=== PATIENT | female | born 1960 | race Caucasian/White ===

== ENCOUNTER 2018-07-04 13:57 | Inpatient (IN) | payer OTHER, SELFPAY ==
[2018-07-04] VITALS (12 sets, daily range): BP systolic 55–96; BP diastolic 37–65; PULSE 20–98; RESP 12–94; TEMP 36.6–36.8; O2SAT 94–97; BMI 20.1; BMI 20.2
--- NOTE | 2018-07-04 14:47 | RAD_ITS ---
STUDY: X-RAY CHEST REASON FOR EXAM: Female, 58 years old. Shortness of breath. Dizziness and weakness. TECHNIQUE: Single AP portable view of the chest. COMPARISON: Comparison is made with prior study dated September 28, 2018. FINDINGS: EKG electrodes are seen. Blunting of the left costophrenic angle with underlying atelectasis. I suspect an early right upper lobe infiltrate. There is no demonstrated pleural abnormality. Normal size heart. Normal mediastinum and sherri. Normal visualized pulmonary arteries. Normal visualized aortic arch and descending thoracic aorta. Normal visualized thoracic spine. Normal visualized ribs, clavicles, and shoulders. There is no demonstrated abnormality of the visualized soft tissue structures of the upper abdomen. RAD/Chest 1 View (Portable) IMPRESSION: Findings suggestive of an early right upper lobe infiltrate. Blunting of the left costophrenic angle with a left basilar atelectasis and/or infiltrate. Electronically Signed: Rickie Ybarra MD at 15:36 EDT Tel [phone], Service support ,
--- NOTE | 2018-07-04 14:47 | EKG12_ITS ---
Test Reason : SOB Blood Pressure : / mmHG Vent. Rate : 090 BPM Atrial Rate : 090 BPM P-R Int : 120 ms QRS Dur : 090 ms QT Int : 356 ms P-R-T Axes : 043 019 033 degrees QTc Int : 435 ms Normal sinus rhythm Normal ECG Confirmed by BI ALFARO, LOC ([id number]), commissioning editor ANTOLIN INFANTE ([id number] on 07/10/2018 3:40:42 PM Referred By: Cruz Snider Confirmed By:LOC APT MD
[2018-07-04] MEDS: 0.9% Normal Saline 1,000 ML 1000 ML IV ×2 (15:06→15:07)
[2018-07-04 15:28] LABS: Absolute Lymphocyte Count 0.59 X10^3/ul (0.83-4.51); Absolute Neutrophil Count 16.3 X10^3/uL (2.0-7.7); Basophil# 0.01 X10^3/uL; Basophil% 0.1 % (0-1); Differential Indicated SCAN CRITERIA MET; Hematocrit 30.9 % (37-47); Hemoglobin 9.8 g/dl (12.0-15.0); Lymphocyte # 0.59 X10^3/ul (4.0); Lymphocyte % 3.2 % (19-41); Mean Corp Hgb Conc 31.7 g/gl (32-36); Mean Corpuscular Hgb 28.8 pg (27.0-32.0); Mean Corpuscular Volume 90.9 fL (81-99); Mean Platelet Vol. 9.6 fl (6.2-12.0); Monocyte# 1.41 X10^3/uL; Monocyte% 7.7 % (0-10); Neutrophil % 88.8 % (47-70); POSITIVE COUNT NO; POSITIVE DIFFERENTIAL YES; POSITIVE MORPHOLOGY NO; Platelet Count 256 K/mm3 (150-450); RBC Distribution Width CV 13.4 % (11.6-14.6); RBC Distribution Width SD 44.1 fl (35.1-43.9); White Blood Count 18.3 K/mm3 (4.4-11.0)
[2018-07-04 15:33] LABS: ALB/GLOB Ratio 0.5 RATIO (0.9-2.4); AST(SGOT) 18 U/L (15-37); Alanine Aminotransfer ALT/SGPT 21 U/L (13-56); Albumin, Serum 2.6 g/dL (3.2-5.0); Alkaline Phosphatase 120 U/L (45-117); Anion Gap 12 (5-15); BUN 49 mg/dL (7-18); BUN/Creat Ratio 12.3 RATIO (10-20); Calcium,Total 9.2 mg/dL (8.5-10.1); Chloride 90 mmol/L (98-107); Creatinine, Serum 3.98 mg/dL (0.55-1.02); EST Glomerular Filtration Rate 12 mL/min (>60); Est Glom Filt Rate - Afr Amer 15 mL/min (>60); Estimated Creatinine Clearance 13.05 ml/min; Globulin 5.4 g/dL (2.2-4.2); Glucose 126 mg/dL (74-106); Potassium 3.6 mmol/L (3.5-5.1); Sodium Level 127 mmol/L (136-145)
[2018-07-04 15:49] LABS: Differential Comment S
[2018-07-04 15:57] LABS: Lactic Acid 1.3 mmol/L (0.4-2.0)
--- NOTE | 2018-07-04 16:19 | ED.VISSUMM ---
- ER Visit Summary Date of Service: 07/04/18 Chief Complaint: [Dizziness] History of Present Illness: The patient is a 58 F [presents to the emergency department with 4-5 days history of feeling dizzy. Patient states dizziness worse with standing. Patient has had some fatigue and sleeping more. Patient states that 3 days ago she slept all day. Patient at times has had some shortness of breath with exertion but no real cough. Patient is not had any fevers. Patient states that several years ago she was admitted and had sepsis and spent time in the ICU and she believes it was from a urinary infection. Patient has a history of hypertension and fibromyalgia. Physical Examination: [HEENT-PERRLA, EOMI. Cranial nerves II through XII grossly intact. TMs clear. Mucous membranes moist. No adenopathy. Cardiovascular-regular rate and rhythm without murmur or ectopy Lungs-clear to auscultation, chest wall stable without crepitus or subcu emphysema Abdomen-normoactive bowel sounds, soft, nontender, no rebound or rigidity, no peritoneal signs. Extremities-intact ?4, normal range of motion, normal pulses, atraumatic] Test Results: [EKG obtained arrival shows sinus rhythm with ventricular rate of 90 bpm with no acute I segment changes. CBC with differential showed a white count of 18.3, hemoglobin 9.8, hematocrit 32, platelets 256. Chemistry showed a sodium 127, potassium 3.6, chloride 90, CO2 25, glucose 126, BUN 49 and creatinine was 3.98. LFTs unremarkable. Hemoccult was negative. Lactate was 1.3. Chest x-ray showed questionable right upper lobe infiltrate.] Urinalysis pending. Emergency Department Course and Treatment: [Had blood cultures ordered and was given 2 L normal same fluid bolus and I will write her for 1/3 L. Patient had her fentanyl patch removed. Patient was started on Zosyn empirically.] Only catheter was placed to monitor urine output. Treatment Plan: [Admit] Disposition: [Admit] Impression: [Acute renal failure Hypotension Sepsis Leukocytosis] This note was generated with [employer] dictation software. It may contain incorrect words, spelling, and punctuation that were not noted in review of the chart prior to signing ED Disposition - Plan for ED Patient: Chief Complaint: General Illness Referrals: Ben Bowie [Primary Care Provider] -
--- NOTE | 2018-07-04 16:22 | ED.DCSUM_ITS ---
- ER Visit Summary Date of Service: 07/04/18 Chief Complaint: [Dizziness] History of Present Illness: The patient is a 58 F [presents to the emergency department with 4-5 days history of feeling dizzy. Patient states dizziness worse with standing. Patient has had some fatigue and sleeping more. Patient s tates that 3 days ago she slept all day. Patient at times has had some shortness of breath with exertion but no real cough. Patient is not had any fevers. Patient states that several years ago she was admitted and had sepsis and spent time in the ICU and she believes it was from a urinary infection. Patient has a history of hypertension and fibromyalgia. Physical Examination: [HEENT-PERRLA, EOMI. Cranial nerves II through XII grossly intact. TMs clear. Mucous membranes moist. No adenopathy. Cardiovascular-regular rate and rhythm without murmur or ectopy Lungs-clear to auscultation, chest wall stable without crepitus or subcu emphysema Abdomen-normoactive bowel sounds, soft, nontender, no rebound or rigidity, no peritoneal signs. Extremities-intact ?4, normal range of motion, normal pulses, atraumatic] Test Results: [EKG obtained arrival shows sinus rhythm with ventricular rate of 90 bpm with no acute I segment changes. CBC with differential showed a white count of 18.3, hemoglobin 9.8, hematocrit 32, platelets 256. Chemistry showed a sodium 127, potassium 3.6, chloride 90, CO2 25, glucose 126, BUN 49 and creatinine was 3.98. LFTs unremarkable. Hemoccult was negative. Lactate was 1.3. Chest x-ray showed questionable right upper lobe infiltrate.] Urinalysis pending. Emergency Department Course and Treatment: [Had blood cultures ordered and was given 2 L normal same fluid bolus and I will write her for 1/3 L. Patient had her fentanyl patch removed. Patient was started on Zosyn empirically.] Only catheter was placed to monitor urine output. Treatment Plan: [Admit] Disposition: [Admit] Impression: [Acute renal failure Hypotension Sepsis Leukocytosis] This note was generated with [employer] dictation software. It may contain incorrect words, spelling, and punctuation that were not noted in review of the chart prior to signing ED Disposition - Plan for ED Patient: Chief Complaint: General Illness Referrals: Ben Bowie [Primary Care Provider] -
[2018-07-04] MEDS: 0.9% Normal Saline 1,000 ML 999 ML IV ×2 (16:24→17:22)
[2018-07-04 16:30] LABS: Mucous, Urine 0 SEEN /hpf (<or=2+)
[2018-07-04 16:47] LABS: Color, Urine Amber (Yellow); Glucose, Dipstick Normal (Normal); Ketone-Dipstick 5 mg/dl (Negative); Leukocyte Esterase-Dipstick 500 /ul (Negative); Nitrite-Dipstick Positive (Negative); Occult Blood-Urine 25 /ul (Negative); Protein-Dipstick 100 mg/dl (Negative); Specific Gravity, Urine 1.015 (1.002-1.030); Urine Clarity Cloudy (Clear); Urine Urobilinogen 4 mg/dl (Normal)
[2018-07-04 16:50] LABS: Urine Bilirubin Dipstick 3 mg/dL (Negative)
[2018-07-04 16:54] LABS: Amorphous Sediment 2+ URATE; Bacteria 1+ /hpf (None Seen); Fine Granular Cast- Urine 0-5 SEEN /lpf (0-5); Red Blood Cells-Urine 0-5 SEEN /hpf (0-5); Squamous Epithelial Cells - UA 0-5 SEEN /hpf (5-10); White Blood Cells 50-100 SEEN /hpf (0-5)
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
--- NOTE | 2018-07-04 17:23 | ED.RN ---
pt bp remains low. dr giron aware. 4 th liter of fluid initiated
[2018-07-04] MEDS: 0.9% Normal Saline 1,000 ML 150 ML IV (18:27)
[2018-07-04] MEDS: Heparin Injection (Vial) 5,000 UNIT/ML VIAL 5000 UNIT SC (22:04)
[2018-07-04] MEDS: Ceftriaxone 1 GM/50 ML BAG IV (22:09)
[2018-07-04] MEDS: HYDROcodone Bitartrate/Apap 5/325 Tablet PO (23:09)
[2018-07-05] VITALS (15 sets, daily range): BP systolic 88–135; BP diastolic 63–78; PULSE 82–126; RESP 16–20; TEMP 36.6–37.2; O2SAT 92–98
[2018-07-05] MEDS: fentaNYL 25 MCG Patch TRANSDERM. (01:23)
[2018-07-05] MEDS: 0.9% Normal Saline 1,000 ML 150 ML IV ×2 (01:25→08:25)
[2018-07-05] MEDS: Morphine 2 MG/ML Syringe IV (04:11)
[2018-07-05] MEDS: 0.9% NaCl Peripheral Flush Adult/Peds IV (04:12)
[2018-07-05] MEDS: Heparin Injection (Vial) 5,000 UNIT/ML VIAL 5000 UNIT SC ×3 (05:39→22:37)
[2018-07-05] MEDS: HYDROcodone Bitartrate/Apap 5/325 Tablet PO (05:39)
[2018-07-05 06:37] LABS: Absolute Lymphocyte Count 0.54 X10^3/ul (0.83-4.51); Absolute Neutrophil Count 9.6 X10^3/uL (2.0-7.7); Hematocrit 24.5 % (37-47); Hemoglobin 7.7 g/dl (12.0-15.0); Lymphocyte # 0.54 X10^3/ul (4.0); Lymphocyte % 4.8 % (19-41); Mean Corp Hgb Conc 31.4 g/gl (32-36); Mean Corpuscular Hgb 29.2 pg (27.0-32.0); Mean Corpuscular Volume 92.8 fL (81-99); Mean Platelet Vol. 9.7 fl (6.2-12.0); Monocyte# 0.96 X10^3/uL; Monocyte% 8.6 % (0-10); Neutrophil # 9.57 X10^3/uL (2.7-7.7); Neutrophil % 85.5 % (47-70); Platelet Count 208 K/mm3 (150-450); RBC Distribution Width CV 13.3 % (11.6-14.6); RBC Distribution Width SD 43.4 fl (35.1-43.9); Red Blood Count 2.64 M/mm3 (4.2-5.4); White Blood Count 11.2 K/mm3 (4.4-11.0)
[2018-07-05 06:38] LABS: Differential Indicated SCAN CRITERIA MET; POSITIVE COUNT NO; POSITIVE DIFFERENTIAL YES; POSITIVE MORPHOLOGY NO
[2018-07-05 06:52] LABS: Anion Gap 12 (5-15); BUN 39 mg/dL (7-18); BUN/Creat Ratio 18.1 RATIO (10-20); Calcium,Total 7.1 mg/dL (8.5-10.1); Chloride 107 mmol/L (98-107); Creatinine, Serum 2.16 mg/dL (0.55-1.02); EST Glomerular Filtration Rate 25 mL/min (>60); Est Glom Filt Rate - Afr Amer 30 mL/min (>60); Estimated Creatinine Clearance 25.62 ml/min; Glucose 142 mg/dL (74-106); Potassium 3.3 mmol/L (3.5-5.1); Sodium Level 138 mmol/L (136-145)
[2018-07-05 06:57] LABS: Differential Comment SCANNED
--- NOTE | 2018-07-05 14:07 | CASEMGMT ---
Addendum entered by Catherine Ramírez 07/05/18 15:36: This RN CM back to room and door is pull closed at this time and this RN CM unable to complete CM assessment at this time. This RN CM will attempt to see pt 10/4 am. Cedrick RAMON CM Original Note: This RN CM to room to complete CM assessment at this time and pt is sleeping at this time with sig other at bedside. Will attempt again later. Cedrick RAMON CM
--- NOTE | 2018-07-05 15:41 | CHAPLAIN ---
Type of Pastoral Visit _x__ Initial Visit ___ Follow-up Visit ___ On-call Visit ___ General Patient Visit ___ Spiritual Assessment ___ Family Conference ___ Bereavement ___ Rapid Response ___ Code Blue ___ Other (describe below) Pastoral Care Referral From _x__ Patient ___ Family ___ Nurse ___ Physician ___ Harvest Worker Fruit ___ Fire Captain Marine ___ Other (describe below) Sacrament/Intervention _x__ Active listening ___ Anointing ___ Presybeterian ___ Bereavement ___ Communion ___ Drea exploration ___ ___ Life review _x__ Prayer ___ Reconciliation ___ Sacrament of Sick ___ Supportive presence ___ Wedding ___ Other (describe below) Pastoral Comments patient and presumed spouse are in room; pt is resting but is willing to talk; pt says that she will probably be in hospital a couple of days to find out what is happening; pt is vague in her responses but says prayer is welcome; pt indicates that prayer is needed for relational issues; pt says she does not belong to any drea group or samaritan
[2018-07-05] MEDS: Acetaminophen 325 MG Tablet 650 MG PO (17:18)
[2018-07-05] MEDS: Morphine 2 MG/ML Syringe 1 MG IV (17:23)
--- NOTE | 2018-07-05 18:02 | PCM.PN.HOSP ---
Patient Problems: Active and Suspected Problems (Last Reviewed 07/04/18 @ 17:00 by Cruz Snider DO) SU (acute kidney injury) (Acute) UTI (urinary tract infection) (Acute) Sepsis (Acute) Hypotension (Acute) Subjective: Patient was seen and examined. Admitted overnight with severe sepsis/septic shock secondary to UTI. Denies any fever or chills. Admits to feeling tired. Denies any chest pain or shortness of breath Vitals/I&O's: Vital Signs Temp Pulse Resp BP Pulse Ox 98.9 F 95 18 116/63 97 07/05/18 17:17 07/05/18 17:17 07/05/18 17:17 07/05/18 17:17 07/05/18 17:17 Oxygen Delivery Method Room Air Weight: 58.6 kg Body Mass Index (BMI) 20.2 Intake and Output for Last 24 Hours 07/03/18 07/04/18 07/05/18 23:59 23:59 23:59 Intake Total 3241 / 3241 4673 / 4673 Output Total 125 / 125 2200 / 2200 Balance 3116 / 3116 2473 / 2473 General: Alert, Oriented x3, Cooperative, No apparent distress, - - Looks tired HEENT: Atraumatic, PERRLA, EOMI, Normocephalic Oral: Dry Mucosa Neck: Supple, No JVD, Negative Carotid Bruits Lungs: Clear to auscultation, Normal air movement, Diminished Cardiovascular: Regular rate, No murmurs Abdomen: Bowel Sounds Present, Soft, Non Tender, Non-Distended, No Hepato-splenomegaly - The lung bases, - - Juárez catheter in situ Extremities: No edema Skin: No rashes, No breakdown Musculoskeletal: No Tenderness to Palpation of Joints or Extremities Lymphatic: No Cervical, Supraclavicular, or Inguinal Adenopathy Neurological: Cranial nerves II-XII grossly intact, Neuro grossly intact, Motor Exam 5/5 strength throughout Psych/Mental Status: Normal Affect, Appropriate Microbiology Past 72 Hours 07/04/18 15:00 Stool Stool Occult Blood (SADIE) - Final Laboratory Results 07/05/18 06:10: WBC 11.2 H, RBC 2.64 L, Hgb 7.7 L, Hct 24.5 L, MCV 92.8, MCH 29.2, MCHC 31.4 L, RDW 13.3, RDW Differential 43.4, Plt Count 208, MPV 9.7, Immature Gran % (Auto) 1.100 H, Neut % (Auto) 85.5 H, Lymph % (Auto) 4.8 L, [place] % (Auto) 8.6, Eos % (Auto) 0.0, Baso % (Auto) 0.0, Absolute Neuts (auto) 9.6 H, Absolute Lymphs (auto) 0.54 L, Total Counted Not Reportable, Differential Comment SCANNED 07/05/18 06:10: Sodium 138, Potassium 3.3 L, Chloride 107, Carbon Dioxide 19.0 L, Anion Gap 12, BUN 39 H, Creatinine 2.16 H, Estim Creat Clear Calc 25.62, Est GFR (MDRD) Af Amer 30 L, Est GFR (MDRD) Non-Af 25 L, BUN/Creatinine Ratio 18.1, Glucose 142 H, Calcium 7.1 L Current Medications Acetaminophen (Tylenol) 650 mg PO Q6H PRN PRN Reason: PAIN Last Admin: 07/05/18 17:18 Dose: 650 mg Fentanyl (Duragesic Patch) 25 mcg TRANSDERM. Q72H [facility] Last Admin: 07/05/18 01:23 Dose: 25 mcg Heparin Sodium (Porcine) (Heparin Na) 5,000 unit SC Q8 [facility] Last Admin: 07/05/18 13:13 Dose: 5,000 unit Ceftriaxone Sodium (Rocephin) 1 gm in 50 mls @ 100 mls/hr IV Q24H [facility] Last Admin: 07/04/18 22:09 Dose: 100 mls/hr Sodium Chloride () 1,000 mls @ 75 mls/hr IV .[id number] [facility] Last Admin: 07/05/18 12:00 Dose: Not Given Magnesium Hydroxide (Milk Of Magnesia) 30 ml PO DAILY PRN PRN PRN Reason: Constipation Morphine Sulfate () 1 mg IV Q4H PRN PRN PRN Reason: MOD-SEVERE PAIN (4-10) Last Admin: 07/05/18 17:23 Dose: 1 mg Nutritional Formula (Lactose Free) (Ensure Enlive) 120 ml PO 4X/DAY [facility] Last Admin: 07/05/18 17:25 Dose: Not Given Ondansetron HCl (Zofran) 4 mg IV Q8H PRN PRN PRN Reason: NAUSEA Oxycodone HCl (Oxyir) 5 mg PO Q6H PRN PRN PRN Reason: SEVERE PAIN (6-07/12) Sodium Chloride () 5 - 30 ml IV UD PRN PRN Reason: SALINE FLUSH Last Admin: 07/05/18 04:12 Dose: 20 ml Medical Necessity - Tobacco Use Smoking Status: Former smoker Tobacco Use: Cigarettes Assessment/Plan All Active Problems (Last Reviewed 07/04/18 @ 17:00 by Cruz Snider DO) SU (acute kidney injury) (Acute) UTI (urinary tract infection) (Acute) Sepsis (Acute) Hypotension (Acute) Depressed (Acute) Dysuria (Acute) Impacted cerumen, left ear (Acute) 64-year-old female with past medical history of hypertension, hyperlipidemia, fibromyalgia/chronic pain syndrome who comes in with complaints of feeling weak and unsteady. Patient's blood pressure was found to be in the 50s in the emergency department. She has been actively managed at septic shock secondary to UTI 1. Septic shock secondary to UTI, improved, blood cultures are pending, urine cultures not sent, Patient already managed on IV ceftriaxone, improvement in her white cell count, will continue to trend vitals and labs 2. SU, previous normal renal function, secondary to sepsis, dehydration, continue on IV fluids, repeat labs in a.m. 3. Hyponatremia, acute, secondary to dehydration, resolved 4. Hypokalemia, replaced, labs in a.m. 5. Microcytic microchromic anemia, drop in hemoglobin from 9.8 to 7.7 secondary to hemodilution, will check for iron stores, will transfuse if hemoglobin is less than 7. 6. Hypertension, now relatively hypotensive, was on lisinopril,hydrochlorothiazide, Meds on hold on account of HPI, continue to monitor vitals closely. 7. Chronic pain syndrome/fibromyalgia/anxiety disorder, will leave patient only on fentanyl, oxycodone, Valium on hold on account of hypotension 8. DVT prophylaxis with heparin subcu Code Visit Inpatient E&M: 13121 Subs Hosp L2
--- NOTE | 2018-07-05 18:09 | PN_ITS ---
Patient Problems: Active and Suspected Problems (Last Reviewed 07/04/18 @ 17:00 by Cruz Snider DO) SU (acute kidney injury) (Acute) UTI (urinary tract infection) (Acute) Sepsis (Acute) Hypotension (Acute) Subjective: Patient was seen and examined. Admitted overnight with severe sepsis/septic shock secondary to UTI. Denies any fever or chills. Admits to feeling tired. Denies any chest pain or shortness of breath Vitals/I&O's: Vital Signs Temp Pulse Resp BP Pulse Ox 98.9 F 95 18 116/63 97 07/05/18 17:17 07/05/18 17:17 07/05/18 17:17 07/05/18 17:17 07/05/18 17:17 Oxygen Delivery Method Room Air Weight: 58.6 kg Body Mass Index (BMI) 20.2 Intake and Output for Last 24 Hours 07/03/18 07/04/18 07/05/18 23:59 23:59 23:59 Intake Total 3241 / 3241 4673 / 4673 Output Total 125 / 125 2200 / 2200 Balance 3116 / 3116 2473 / 2473 General: Alert, Oriented x3, Cooperative, No apparent distress, - - Looks tired HEENT: Atraumatic, PERRLA, EOMI, Normocephalic Oral: Dry Mucosa Neck: Supple, No JVD, Negative Carotid Bruits Lungs: Clear to auscultation, Normal air movement, Diminished Cardiovascular: Regular rate, No murmurs Abdomen: Bowel Sounds Present, Soft, Non Tender, Non-Distended, No Hepato- splenomegaly - The lung bases, - - Juárez catheter in situ Extremities: No edema Skin: No rashes, No breakdown Musculoskeletal: No Tenderness to Palpation of Joints or Extremities Lymphatic: No Cervical, Supraclavicular, or Inguinal Adenopathy Neurological: Cranial nerves II-XII grossly intact, Neuro grossly intact, Motor Exam 5/5 strength throughout Psych/Mental Status: Normal Affect, Appropriate Microbiology Past 72 Hours 07/04/18 15:00 Stool Stool Occult Blood (SADIE) - Final Laboratory Results 07/05/18 06:10: WBC 11.2 H, RBC 2.64 L, Hgb 7.7 L, Hct 24.5 L, MCV 92.8, MCH 29.2, MCHC 31.4 L, RDW 13.3, RDW Differential 43.4, Plt Count 208, MPV 9.7, Immature Gran % (Auto) 1.100 H, Neut % (Auto) 85.5 H, Lymph % (Auto) 4.8 L, [place] % (Auto) 8.6, Eos % (Auto) 0.0, Baso % (Auto) 0.0, Absolute Neuts (auto) 9.6 H, Absolute Lymphs (auto) 0.54 L, Total Counted Not Reportable, Differential Comment SCANNED 07/05/18 06:10: Sodium 138, Potassium 3.3 L, Chloride 107, Carbon Dioxide 19.0 L , Anion Gap 12, BUN 39 H, Creatinine 2.16 H, Estim Creat Clear Calc 25.62, Est GFR (MDRD) Af Amer 30 L, Est GFR (MDRD) Non-Af 25 L, BUN/Creatinine Ratio 18.1, Glucose 142 H, Calcium 7.1 L Current Medications Acetaminophen (Tylenol) 650 mg PO Q6H PRN PRN Reason: PAIN Last Admin: 07/05/18 17:18 Dose: 650 mg Fentanyl (Duragesic Patch) 25 mcg TRANSDERM. Q72H [facility] Last Admin: 07/05/18 01:23 Dose: 25 mcg Heparin Sodium (Porcine) (Heparin Na) 5,000 unit SC Q8 [facility] Last Admin: 07/05/18 13:13 Dose: 5,000 unit Ceftriaxone Sodium (Rocephin) 1 gm in 50 mls @ 100 mls/hr IV Q24H [facility] Last Admin: 07/04/18 22:09 Dose: 100 mls/hr Sodium Chloride () 1,000 mls @ 75 mls/hr IV .[id number] [facility] Last Admin: 07/05/18 12:00 Dose: Not Given Magnesium Hydroxide (Milk Of Magnesia) 30 ml PO DAILY PRN PRN PRN Reason: Constipation Morphine Sulfate () 1 mg IV Q4H PRN PRN PRN Reason: MOD-SEVERE PAIN (4-10) Last Admin: 07/05/18 17:23 Dose: 1 mg Nutritional Formula (Lactose Free) (Ensure Enlive) 120 ml PO 4X/DAY [facility] Last Admin: 07/05/18 17:25 Dose: Not Given Ondansetron HCl (Zofran) 4 mg IV Q8H PRN PRN PRN Reason: NAUSEA Oxycodone HCl (Oxyir) 5 mg PO Q6H PRN PRN PRN Reason: SEVERE PAIN (6-07/12) Sodium Chloride () 5 - 30 ml IV UD PRN PRN Reason: SALINE FLUSH Last Admin: 07/05/18 04:12 Dose: 20 ml Medical Necessity - Tobacco Use Smoking Status: Former smoker Tobacco Use: Cigarettes Assessment/Plan All Active Problems (Last Reviewed 07/04/18 @ 17:00 by Cruz Snider DO) SU (acute kidney injury) (Acute) UTI (urinary tract infection) (Acute) Sepsis (Acute) Hypotension (Acute) Depressed (Acute) Dysuria (Acute) Impacted cerumen, left ear (Acute) 64-year-old female with past medical history of hypertension, hyperlipidemia, fibromyalgia/chronic pain syndrome who comes in with complaints of feeling weak and unsteady. Patient's blood pressure was found to be in the [facility]s [facility]. She has been actively managed at septic shock secondary to UTI 1. Septic shock secondary to UTI, improved, blood cultures are pending, urine cultures not sent, Patient already managed on IV ceftriaxone, improvement in her white cell count, will continue to trend vitals and labs 2. SU, previous normal renal function, secondary to sepsis, dehydration, continue on IV fluids, repeat labs in a.m. 3. Hyponatremia, acute, secondary to dehydration, resolved 4. Hypokalemia, replaced, labs in a.m. 5. Microcytic microchromic anemia, drop in hemoglobin from 9.8 to 7.7 secondary to hemodilution, will check for iron stores, will transfuse if hemoglobin is less than 7. 6. Hypertension, now relatively hypotensive, was on lisinopril,hydrochlorothiazide, Meds on hold on account of HPI, continue to monitor vitals closely. 7. Chronic pain syndrome/fibromyalgia/anxiety disorder, will leave patient only on fentanyl, oxycodone, Valium on hold on account of hypotension 8. DVT prophylaxis with heparin subcu Code Visit Inpatient E&M: 52217 Subs Hosp L2
[2018-07-05 18:59] LABS: Ferritin 416 ng/mL (8-252); Iron 18 ug/dL (50-170); Iron Binding Capacity,Total 256 ug/dL (250-450)
[2018-07-05] MEDS: diazePAM 5 MG Tablet PO (19:18)
[2018-07-05] MEDS: 0.9% Normal Saline 1,000 ML 75 ML IV (19:19)
[2018-07-05] MEDS: Ceftriaxone 1 GM/50 ML BAG IV (22:37)
[2018-07-06] VITALS (12 sets, daily range): BP systolic 108–136; BP diastolic 60–79; PULSE 78–102; RESP 16–18; TEMP 36.6–37.2; O2SAT 92–98
[2018-07-06] MEDS: oxyCODONE 5 MG Tablet PO ×4 (00:41→20:13)
[2018-07-06] MEDS: Heparin Injection (Vial) 5,000 UNIT/ML VIAL 5000 UNIT SC ×3 (06:10→21:29)
[2018-07-06 06:13] LABS: Absolute Lymphocyte Count 1.65 X10^3/ul (0.83-4.51); Absolute Neutrophil Count 9.6 X10^3/uL (2.0-7.7); Basophil# 0.01 X10^3/uL; Basophil% 0.1 % (0-1); Eosinophil# 0.02 X10^3/uL; Eosinophils% 0.2 % (0-5); Hematocrit 26.6 % (37-47); Hemoglobin 8.4 g/dl (12.0-15.0); Lymphocyte # 1.65 X10^3/ul (4.0); Lymphocyte % 13.2 % (19-41); Mean Corp Hgb Conc 31.6 g/gl (32-36); Mean Corpuscular Hgb 29.1 pg (27.0-32.0); Mean Platelet Vol. 9.4 fl (6.2-12.0); Monocyte# 1.11 X10^3/uL; Monocyte% 8.9 % (0-10); Neutrophil # 9.63 X10^3/uL (2.7-7.7); Neutrophil % 77.1 % (47-70); Platelet Count 291 K/mm3 (150-450); RBC Distribution Width CV 13.5 % (11.6-14.6); RBC Distribution Width SD 44.3 fl (35.1-43.9); Red Blood Count 2.89 M/mm3 (4.2-5.4); White Blood Count 12.5 K/mm3 (4.4-11.0)
[2018-07-06] MEDS: Acetaminophen 325 MG Tablet 650 MG PO ×2 (06:13→17:46)
[2018-07-06 06:23] LABS: Anion Gap 9 (5-15); BUN 27 mg/dL (7-18); BUN/Creat Ratio 24.1 RATIO (10-20); Calcium,Total 7.9 mg/dL (8.5-10.1); Chloride 109 mmol/L (98-107); Creatinine, Serum 1.12 mg/dL (0.55-1.02); EST Glomerular Filtration Rate 53 mL/min (>60); Est Glom Filt Rate - Afr Amer 64 mL/min (>60); Estimated Creatinine Clearance 49.41 ml/min; Glucose 98 mg/dL (74-106); Potassium 3.7 mmol/L (3.5-5.1); Sodium Level 140 mmol/L (136-145)
[2018-07-06 06:27] LABS: POSITIVE COUNT NO; POSITIVE DIFFERENTIAL NO; POSITIVE MORPHOLOGY NO
--- NOTE | 2018-07-06 11:30 | CASEMGMT ---
YENNY WILCOX Assessment: Face to Face with patient for initial transition planning/care coordination assessment. YENNY WILCOX introduced self and role at [facility], pt voices understanding and consents to assessment at this time. Pt is sitting up on side of bed in no distress at this time and Zoe RAMON is at bedside. Pt is A/O x4 at this time and answers all questions appropriately at this time. Care providers, pharmacy, and demographics verified at this time. 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 Specialists: Kye-Pain management Preferred Pharmacy: [facility] Insurance: MMO Prescription Benefit: MMO Living Will/HPOA: Pt states does not have AD completed but would like information to take home at this time. AD info with Retail Custodial Associate pamphlet provided to pt at this time. LNOK: Martin Weeks, Living Arrangements: Pt states currently lives with and states no concerns with home at this time. Pt states she only has stairs to basement and does not go down there if she can help it. Per Dayana CARSON, pt is planning on . Referral to Miguelito BARRERA to speak with pt, voices understanding. Transportation: Pt states drives self and states no transportation concerns at this time. DME/HHC: Pt states does have any DME currently or need for any at this time. Pt states no hx of HHC/SNF in the past. Pt states no concerns with going home at time of discharge. Pt states quit smoking 40 years ago and states drinks ETOH rarely. Pt states no further concerns/needs at this time. Advised pt to ask for CM if any further questions/concerns/needs arise, voices understanding. Plan: [place] YENNY WILCOX
[2018-07-06] MEDS: Ferrous Sulfate 325 MG Tablet PO ×2 (13:20→17:46)
[2018-07-06] MEDS: 0.9% Normal Saline 1,000 ML 125 ML IV ×2 (13:24→21:29)
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
[2018-07-06] MEDS: Fluticasone 0.05% 1 SPRAY NASAL.SRY 2 SPRAY NASAL (20:14)
[2018-07-06] MEDS: Ceftriaxone 1 GM/50 ML BAG IV (21:29)
[2018-07-06] MEDS: diazePAM 5 MG Tablet PO (21:33)
[2018-07-07] MEDS: oxyCODONE 5 MG Tablet PO ×2 (02:24→08:15)
[2018-07-07] MEDS: 0.9% NaCl Peripheral Flush Adult/Peds IV (02:24)
[2018-07-07 02:31] VITALS: BP 123/70; PULSE 69; RESP 16; TEMP 36.9; O2SAT 94
[2018-07-07 04:08] VITALS: PULSE 75
[2018-07-07] MEDS: Heparin Injection (Vial) 5,000 UNIT/ML VIAL 5000 UNIT SC (05:53)
[2018-07-07] MEDS: 0.9% Normal Saline 1,000 ML 125 ML IV (05:54)
[2018-07-07 06:51] LABS: Absolute Neutrophil Count 7.3 X10^3/uL (2.0-7.7); Basophil# 0.02 X10^3/uL; Basophil% 0.2 % (0-1); Eosinophil# 0.06 X10^3/uL; Eosinophils% 0.5 % (0-5); Hematocrit 27.6 % (37-47); Hemoglobin 8.7 g/dl (12.0-15.0); Lymphocyte % 21.9 % (19-41); Mean Corp Hgb Conc 31.5 g/gl (32-36); Mean Corpuscular Hgb 29.1 pg (27.0-32.0); Mean Corpuscular Volume 92.3 fL (81-99); Mean Platelet Vol. 9.3 fl (6.2-12.0); Monocyte# 1.02 X10^3/uL; Monocyte% 9.3 % (0-10); Neutrophil # 7.33 X10^3/uL (2.7-7.7); Neutrophil % 66.8 % (47-70); Platelet Count 321 K/mm3 (150-450); RBC Distribution Width CV 13.6 % (11.6-14.6); Red Blood Count 2.99 M/mm3 (4.2-5.4)
[2018-07-07 06:52] LABS: POSITIVE COUNT NO; POSITIVE DIFFERENTIAL NO; POSITIVE MORPHOLOGY NO
[2018-07-07 07:01] LABS: Anion Gap 9 (5-15); BUN 18 mg/dL (7-18); BUN/Creat Ratio 22.6 RATIO (10-20); Calcium,Total 7.9 mg/dL (8.5-10.1); Chloride 111 mmol/L (98-107); EST Glomerular Filtration Rate 78 mL/min (>60); Est Glom Filt Rate - Afr Amer 94 mL/min (>60); Estimated Creatinine Clearance 69.18 ml/min; Glucose 98 mg/dL (74-106); Potassium 3.9 mmol/L (3.5-5.1); Sodium Level 141 mmol/L (136-145)
[2018-07-07 07:09] VITALS: PULSE 81
[2018-07-07 08:09] VITALS: BP 125/82; PULSE 79; RESP 18; TEMP 36.4; O2SAT 96
[2018-07-07] MEDS: Acetaminophen 325 MG Tablet 650 MG PO (08:15)
[2018-07-07] MEDS: Fluticasone 0.05% 1 SPRAY NASAL.SRY 2 SPRAY NASAL (08:18)
[2018-07-07 10:42] VITALS: BP 118/71; BP 134/76; BP 147/81; PULSE 87; PULSE 89; PULSE 92
--- NOTE | 2018-07-07 11:12 | DCINST_ITS ---
- Discharge Diagnoses Current Active Problems: Current Active and Chronic Problems (Last Reviewed 07/04/18 @ 17:00 by Cruz Snider DO) SU (acute kidney injury) (Acute) UTI (urinary tract infection) (Acute) Sepsis (Acute) Hypotension (Acute) You will use the following diet at home:: Cardiac - <2 grams sodium daily Your food should be the consistency of: Regular Your liquids should be the consistency of: Regular/Thin Discharge Activity: Return to Normal Activity Allergies/Adverse Reactions: Allergies nefazodone HCl [From Serzone] Allergy (Verified 07/04/18 17:58) suicidal thoughts Medications to take at Discharge fentaNYL patch [Duragesic patch] 25 mcg TRANSDERM. Q72H 05/16/17 hydrocodone 5 mg-acetaminophen 325 mg tablet 1 tab PO 4X/DAY 05/30/18 Dextroamphetamine/Amphetamine [Dextroamp-Amphetamin 20 mg Tab] 20 mg PO BID 07/04/18 Diazepam [Valium] 2.5 - 5 mg PO QHS 07/04/18 Cefdinir [Omnicef [equiv]] 300 mg PO Q12H #7 capsule 07/07/18 Ferrous Sulfate 325 mg PO 1200,1700 #60 tablet 07/07/18 The following prescriptions were given: Cefdinir [Omnicef [equiv]] 300 mg PO Q12H #7 capsule Ferrous Sulfate 325 mg PO 1200,1700 #60 tablet Primary Care Physician: Ben Bwoie [Primary Care Provider] - Please follow up with your Primary Care Physician in: 1-2 weeks Test Results: Test results from this visit will be discussed in further detail at your follow- up appointment, if applicable. Please Follow Up With: Counselling services - Your own When: 1 week Proposed Discharge Date: 07/07/18
[2018-07-07 11:13] VITALS: PULSE 81
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
[2018-07-07] MEDS: Ferrous Sulfate 325 MG Tablet PO (12:45)
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
== END 2018-07-07 13:41 | disposition home or self-care (01) | DRG 872 ==
LOC: ED 15:49 → PCU 16:55
PROVIDERS: Hospitalist; Internal Medicine; Physician Assistant; Emergency Provider Emergency Medicine; Visit Provider Family Medicine
DX: A41.9 Sepsis, unspecified organism (principal); N17.9 Acute kidney failure, unspecified; E87.1 Hypo-osmolality and hyponatremia; N39.0 Urinary tract infection, site not specified; E86.1 Hypovolemia; D50.9 Iron deficiency anemia, unspecified; I10 Essential (primary) hypertension; G89.4 Chronic pain syndrome; E86.0 Dehydration; Z87.891 Personal history of nicotine dependence
CPT/HCPCS: 36415; 51702; 71045; 80048; 80053; 81001; 82274; 82728; 83540; 83550; 83605; 84484; 85025; 87040; 87086; 87088; 93005; 97162; 97165; 97802; 99285; J1756; J7030; J7050; A4216

== ENCOUNTER → 2018-08-30 16:30 | Outpatient (CLI) | payer OTHER, SELFPAY ==
[2018-07-04 17:54] VITALS: BMI 20.2
[2018-08-30 18:12] LABS: Ferritin 142 ng/mL (8-252); Iron 48 ug/dL (50-170); Iron Binding Capacity,Total 312 ug/dL (250-450); PERCENT IRON SATURATION 15.4 % (15.0-55.0)
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
== END ==
DX: D50.9 Iron deficiency anemia, unspecified (principal)
CPT/HCPCS: 36415; 82728; 83540; 83550

== ENCOUNTER → 2019-02-12 15:36 | Outpatient (CLI) | payer OTHER, SELFPAY ==
[2019-02-12 09:04] VITALS: BMI 20.6
[2019-02-12 15:55] LABS: Mucous, Urine 0 SEEN /hpf (<or=2+)
[2019-02-12 16:30] LABS: Color, Urine Yellow (Yellow); Glucose, Dipstick Normal (Normal); Ketone-Dipstick Negative (Negative); Leukocyte Esterase-Dipstick 500 /ul (Negative); Nitrite-Dipstick Positive (Negative); Occult Blood-Urine 10 /ul (Negative); Protein-Dipstick 15 mg/dl (Negative); Specific Gravity, Urine 1.015 (1.002-1.030); Urine Clarity Cloudy (Clear); Urine Urobilinogen 4 mg/dl (Normal)
[2019-02-12 16:34] LABS: Urine Bilirubin Dipstick 3 mg/dL (Negative)
[2019-02-12 16:42] LABS: Bacteria 1+ /hpf (None Seen); Red Blood Cells-Urine 0-5 SEEN /hpf (0-5); Squamous Epithelial Cells - UA 10-25 SEEN /hpf (5-10); White Blood Cells 50-100 SEEN /hpf (0-5)
== END ==
PROVIDERS: Referring Provider Physician Assistant; Visit Provider Physician Assistant
DX: R30.0 Dysuria (principal)
CPT/HCPCS: 81001; 87086; 87088; 87186

== ENCOUNTER → 2019-04-13 | Outpatient (CLI) | payer OTHER, SELFPAY ==
[2019-02-12 09:04] VITALS: BMI 20.6
[2019-04-13 10:53] LABS: Absolute Lymphocyte Count 3.22 X10^3/ul (0.83-4.51); Absolute Neutrophil Count 3.3 X10^3/uL (2.0-7.7); Basophil# 0.02 X10^3/uL; Basophil% 0.3 % (0-1); Eosinophils% 1.4 % (0-5); Hematocrit 35.4 % (37-47); Hemoglobin 10.7 g/dl (12.0-15.0); Lymphocyte # 3.22 X10^3/ul (4.0); Lymphocyte % 45.7 % (19-41); Mean Corp Hgb Conc 30.2 g/gl (32-36); Mean Corpuscular Hgb 28.8 pg (27.0-32.0); Mean Corpuscular Volume 95.2 fL (81-99); Mean Platelet Vol. 9.3 fl (6.2-12.0); Monocyte# 0.46 X10^3/uL; Monocyte% 6.5 % (0-10); Neutrophil # 3.25 X10^3/uL (2.7-7.7); Neutrophil % 46.1 % (47-70); Platelet Count 415 K/mm3 (150-450); RBC Distribution Width SD 43.3 fl (35.1-43.9); Red Blood Count 3.72 M/mm3 (4.2-5.4); White Blood Count 7.1 K/mm3 (4.4-11.0)
[2019-04-13 10:58] LABS: POSITIVE COUNT NO; POSITIVE DIFFERENTIAL NO; POSITIVE MORPHOLOGY NO
[2019-04-13 11:25] LABS: AST(SGOT) 15 U/L (15-37); Alanine Aminotransfer ALT/SGPT 24 U/L (13-56); Albumin, Serum 3.5 g/dL (3.2-5.0); Alkaline Phosphatase 64 U/L (45-117); Anion Gap 8 (5-15); BUN 17 mg/dL (7-18); Calcium,Total 8.6 mg/dL (8.5-10.1); Chloride 102 mmol/L (98-107); Cholesterol 231 mg/dL (200); Creatinine, Serum 1.06 mg/dL (0.55-1.02); EST Glomerular Filtration Rate 56 mL/min (>60); Est Glom Filt Rate - Afr Amer 68 mL/min (>60); Ferritin 170 ng/mL (8-252); Globulin 3.6 g/dL (2.2-4.2); Glucose 91 mg/dL (74-106); High Density Lipoprotein 58 mg/dL; Protein, Total 7.1 g/dL (6.4-8.2); Sodium Level 140 mmol/L (136-145); T4 Total, Thyroxin 6.7 ug/dL (4.8-13.9); Thyroid Stim Hormone (TSH) 3.26 uIU/mL (0.358-3.74); Triglycerides 167 mg/dL; Very Low Density Lipoprotein 33 mg/dL (5-40)
== END | disposition home or self-care (01) ==
DX: Z00.00 Encounter for general adult medical examination without abnormal findings (principal); I10 Essential (primary) hypertension; D50.9 Iron deficiency anemia, unspecified; R63.5 Abnormal weight gain; Z98.890 Other specified postprocedural states
CPT/HCPCS: 36415; 80053; 80061; 82728; 84436; 84443; 85025

== ENCOUNTER → 2021-02-25 08:23 | Outpatient (CLI) | payer OTHER, SELFPAY ==
[2020-05-03 13:20] VITALS: BMI 20.6
--- NOTE | 2021-02-25 08:28 | BI_ITS ---
MAMMOGRAPHY - BILATERAL SCREENING REASON FOR EXAM: Female, 60 years old. Routine annual screening examination. PERTINENT HISTORY: Non-contributory. Remote left excisional breast biopsy. TECHNIQUE: Digital bilateral breast jolie (3D mammographic acquisition) in the CC and MLO projections. 2-D mediolateral oblique (MLO) and craniocaudad (CC) views of both breasts were obtained. CAD: Full Field Digital Mammography with Computer Added Detection was performed. COMPARISON: Comparison is made with prior study dated 02/14/2017 and 01/28/2014. FINDINGS: Breast Composition: The breasts are heterogeneously dense, which may obscure small masses. There are no dominant masses or suspicious calcifications. Stable benign-appearing left axillary lymph node. No other significant abnormalities are identified. There has been no significant change since the prior study. BI/SCRN MAMM (CAD)W/JOLIE BILAT IMPRESSION: Stable bilateral screening mammogram. Yearly follow-up mammogram recommended. (A) ASSESSMENT CATEGORY: BIRADS Category 2: Benign. A letter regarding these results will be sent to the patient by the facility within 30 days. Approximately 10% of breast cancers are not detected by mammography. A normal mammogram should not delay biopsy of a clinically suspicious abnormality. [id number] Electronically Signed: Rickie Ybarra MD at 9:05 EDT , Service support ,
== END ==
PROVIDERS: Referring Provider Nurse Practitioner Family; Visit Provider Nurse Practitioner Family
DX: Z12.31 Encounter for screening mammogram for malignant neoplasm of breast (principal)
CPT/HCPCS: 77063; 77067

== ENCOUNTER 2021-08-26 19:14 | Emergency (ER) | payer SELFPAY ==
[2021-08-26 19:15] VITALS: BP 143/96; PULSE 109; RESP 16; TEMP 36.2; O2SAT 97; BMI 25.7
--- NOTE | 2021-08-26 19:30 | ED.VIS.LOWEX ---
HPI History of Present Illness Chief Complaint: Lower Extremity Injury Informant: patient Occured/Mechanism Mechanism/Context: Yes blunt trauma Onset/Context/Timing Onset: Days Context: Sudden Onset Timing: Continuous Quality of Pain: Sharp Current Severity: Moderate Maximum Severity: Moderate Narrative Narrative: 61-year-old female states she was standing on a chair 2 days ago on Tuesday chair slipped out from under her while she was trimming tree branches and she fell awkwardly injuring her left posterior knee. Denies any other injuries. Did not hit her head denies any neck pain. No LOC. No chest or abdominal or back pain. Other extremities are unremarkable. Prior similar symptoms: No Recent Illness/Hospitalization: No PFSH PFS Medical History (Updated 08/26/21 @ 20:[address] Santo Esteban MD) Arthritis Fatigue Fibromyalgia Heart disease History Collapsed Lungs HISTORY OF BASIL CELL REMOVAL History of cancer History of fracture of skull HISTORY OF HIP/PELVIS/SUPRA PUBIC INJURY HISTORY OF LUMP REMOVAL FROM THROAT HISTORY OF RIGHT TIB-FIB INJURY HISTORY OF RUPTURE OF BLADDER History of rupture of uterus History of sepsis History of uterine fibroid Hypertension Knee pain UNEXPLAINED BRUISES Home Medications fentanyl 25 mcg TRANSDERM. Q72H 05/16/17 [History Last Taken 06/04/18] hydrocodone-acetaminophen 5-325mg 5mg-325mg 1 tab PO 4X/DAY 05/30/18 [History Last Taken 07/04/18] diazepam 2.5 - 5 mg PO QHS 07/04/18 [History Last Taken 06/28/18] ferrous sulfate 325 mg PO 1200,1700 #60 tab 07/07/18 [Rx Last Taken Unknown] cetirizine 10 mg capsule 10 mg PO DAILY #30 cap 03/28/21 [Rx Last Taken Unknown] hydrochlorothiazide 25 mg tablet 25 mg PO DAILY 03/28/21 [History Last Taken Unknown] lisinopril 10 mg tablet 10 mg PO DAILY 03/28/21 [History Last Taken Unknown] Allergy/AdvReac Type Severity Reaction Status Date / Time nefazodone HCl [From Serzone] Allergy suicidal Verified 08/26/21 19:16 thoughts Family History Other Cancer Hypertension Nephritis Surgical History History of bladder repair surgery History of hysterectomy History of lumpectomy of left breast History of thyroidectomy Social History Smoking Status: Former smoker alcohol intake: current alcohol intake frequency: holidays/special occasions only ROS ROS ED ROS Narrative Denies recent illness. Review of Systems ROS Unobtainable: Denies due to encephalopathy Constitutional Constitutional ED: Denies fever(s) Eyes Eyes: Denies change in vision ENT ENT ED: Denies ear pain Cardiovascular Cardiovascular: Denies chest pain Respiratory/Chest Respiratory/Chest: Denies dyspnea Gastrointestinal Gastrointestinal: Denies abdominal pain Genitourinary Genitourinary ED: Denies dysuria Musculoskeletal Musculoskeletal: Denies myalgias Integumentary Denies rash Neurologic Neurologic: Denies headache(s) Psychiatric Psychiatric: Denies depression Endocrine Endocrinology: Denies polyuria Hematologic/Lymphatic Hematologic/Lymphatic: Denies easy bruising Allergic/Immunologic Allergic/Immunologic ED: Denies urticaria EXAM Physical Exam Narrative Exam Narrative: 6 3 of female no acute distress vital signs stable afebrile. She walked in the room limping on her left leg. HEENT exam unremarkable atraumatic C-spine nontender. Lungs clear to auscultation bilaterally. Heart regular rate and rhythm rate about 100 no murmur. Chest were nontender. Abdomen soft nontender. Pelvic girdle intact. Back and spine nontender. Moving all 4 extremities. Neurovascular intact. Both upper and right lower extremity unremarkable nontender normal range of motion. Left lower extremity she complains of pain in the posterior left knee with mild swelling. She can do flexion-extension of left hip knee ankle and foot. Dorsi plantarflexion intact. The foot ankle upper leg and hip are completely nontender with no deformity. Neurologic exam normal. Const Vital Signs: 08/26/21 19:15 Temperature 97.2 F L Temperature Source Temporal Pulse Rate 109 H Respiratory Rate 16 Blood Pressure 143/96 H Blood Pressure Mean 111 Pulse Ox 97 Oxygen Delivery Method Room Air Positive well nourished and well developed; Negative for obese, cachectic, contractures or unkempt General Appearance ED: well developed and NAD; Negative for unkempt, cachectic or contractures Nutritional Appearance: Negative for cachectic or obese HEENT Reports moist mucous membranes normocephalic and atraumatic; Negative for tenderness Eyes PERRL Neck full ROM and supple Thyroid: Negative for tender Chest Wall inspection of chest normal and palpation of chest normal Resp normal respiratory effort, no retractions and clear to auscultation bilaterally Auscultation: Negative for rales, rhonchi or wheezes Cardio regular rate, regular rhythm, S1 normal heart sound, S2 normal heart sound and no murmurs GI non-tender, non-distended and no masses Inspection: Negative for abdominal distention Auscultation: normoactive bowel sounds Palpation: soft; Negative for tender, guarding or rebound tenderness present Back/Spine no CVA tenderness General Back: Negative for CVA tenderness Cervical Spine: Negative for cervical spine tenderness Thoracic Spine / Upper Back: Negative for thoracic spinal tenderness Lumbar Spine / Lower Back: Negative for lumbar spinal tenderness Extremity normal to inspection and full ROM Extremity Narrative: Tenderness left posterior knee. She is able to do flexion extension. Left hip and proximal femur as well as the left lower leg ankle and foot are nontender neurovascularly intact with normal range of motion. General Extremety ED: Negative for cyanosis or edema General Extremity: Negative for cyanosis or edema Neuro oriented x3 and moves all extremities Sensorium / Orientation: alert, oriented to person, oriented to place and oriented to time; Negative for orientation impaired, confused, lethargic or stuporous Motor Exam: strength 5/5 throughout Psych mental status grossly normal Appearance: Negative for unkempt Mood & Affect: Negative for anxious Skin no wounds Lesions: no lesions Rashes: no rashes Trauma: Negative for abrasion or laceration MDM MDM MDM Narrative Medical decision making narrative: 61-year-old female with an injury to her left posterior knee 2 days ago after falling from a chair. X-rays are being obtained. She was given 2 [place] for pain. Repeat exam patient is doing well at 8:45 PM. She is able to flex and extend her left knee. We went over her x-rays. She will be discharged home with crutches. Ice and elevate. Tylenol Motrin for pain. Follow-up with orthopedics if not improving. Radiography Diagnostic Testing: Left knee x-ray 4 views interpreted by myself shows no acute abnormality. No fracture or dislocation. I did go over the film with the patient and her . Discharge Plan Triage Chief Complaint: Lower Extremity Injury ED Provider: Santo Esteban Dx/Rx/DC Orders Clinical Impression: Left knee sprain Instructions: ED Knee Sprain Prescriptions: No Action hydrocodone-acetaminophen [[place]] 5-325 mg tablet 1 tab PO 4X/DAY RF: 0 lisinopril 10 mg tablet 10 mg PO DAILY RF: 0 hydrochlorothiazide 25 mg tablet 25 mg PO DAILY RF: 0 Zyrtec 10 mg capsule 10 mg PO DAILY Qty: 30 RF: 0 fentanyl 25 MCG patch 25 mcg TRANSDERM. Q72H RF: 0 diazepam 5 MG tablet 2.5 - 5 mg PO QHS RF: 0 ferrous sulfate 325 MG tablet 325 mg PO 1200,1700 Qty: 60 RF: 0 Primary Care Provider: Gianluca Nunez Referrals: Gianluca Nunez MD [Primary Care Provider] - Dameon Calhoun DO [STAFF PHYSICIAN] - 10-14 Days if not better Activity Restrictions/Additional Instructions: Ice and elevate your left knee to decrease pain and swelling. Motrin for pain and swelling. Tylenol for pain. Crutches initially and then increase weightbearing slowly as tolerated. Follow-up with a local orthopedic physician if this is not improving in 1 to 2 weeks. Disposition Disposition: Home, Self Care
[2021-08-26] MEDS: HYDROcodone Bitartrate/Apap 5/325 Tablet PO (19:34)
--- NOTE | 2021-08-26 19:40 | RAD_ITS ---
STUDY: X-RAY - LEFT KNEE REASON FOR EXAM: Female, 61 years old. trauma TECHNIQUE: 3 view(s) of the knee. COMPARISON: None. FINDINGS: Normal visualized distal femur. Normal visualized proximal tibia and fibula. Normal proximal tibiofibular articulation. Normal medial femorotibial compartment. Normal lateral femorotibial compartment. Normal patellofemoral articulation. There is a joint effusion. RAD/Knee 4 or More Views IMPRESSION: No fracture. Joint effusion. Electronically Signed: Eliza Naik MD at 20:47 EST Tel , Service support ,
== END 2021-08-26 21:08 | disposition home or self-care (01) ==
PROVIDERS: Emergency Provider Emergency Medicine
DX: S83.92XA Sprain of unspecified site of left knee, initial encounter (principal); M19.90 Unspecified osteoarthritis, unspecified site; M79.7 Fibromyalgia; I11.9 Hypertensive heart disease without heart failure; Z79.899 Other long term (current) drug therapy; Z87.891 Personal history of nicotine dependence; W07.XXXA Fall from chair, initial encounter; Y93.89 Activity, other specified; Y92.007 Garden or yard of unspecified non-institutional (private) residence as the place of occurrence of the external cause; Y99.8 Other external cause status
CPT/HCPCS: 73564; 99284

== ENCOUNTER → 2022-12-31 | Outpatient (CLI) | payer BC, SELFPAY ==
[2022-12-31 10:25] LABS: Bacteria 0 SEEN /hpf (None Seen); Mucous, Urine 0 SEEN /hpf (<or=2+); Red Blood Cells-Urine 0 SEEN /hpf (0-5)
[2022-12-31 10:29] LABS: Glucose, Dipstick Normal (Normal); Ketone-Dipstick Negative (Negative); Leukocyte Esterase-Dipstick Negative /ul (Negative); Nitrite-Dipstick Positive (Negative); Occult Blood-Urine Negative /ul (Negative); Protein-Dipstick 15 mg/dl (Negative); Urine Clarity Clear (Clear); Urine Urobilinogen 8 mg/dl (Normal)
[2022-12-31 10:36] LABS: Color, Urine SEE COMMENT BELOW (Yellow); Urine Bilirubin Dipstick 6 mg/dL (Negative)
[2022-12-31 10:37] LABS: Squamous Epithelial Cells - UA 0-5 SEEN /hpf (5-10); White Blood Cells 5-10 SEEN /hpf (0-5)
== END | disposition home or self-care (01) ==
LOC: LABSPEC 10:12
PROVIDERS: Visit Provider Physician Assistant
DX: R30.0 Dysuria (principal)
CPT/HCPCS: 81001; 87077; 87086; 87088; 87186

== ENCOUNTER → 2023-03-07 | Outpatient (CLI) | payer BC, SELFPAY ==
[2023-03-07 11:19] LABS: ALB/GLOB Ratio 1.1 RATIO (0.9-2.4); AST(SGOT) 22 U/L (15-37); Alanine Aminotransfer ALT/SGPT 25 U/L (13-56); Albumin, Serum 4.1 g/dL (3.2-5.0); Alkaline Phosphatase 73 U/L (45-117); Anion Gap 3 (5-15); BUN 19 mg/dL (7-18); BUN/Creat Ratio 19.8 RATIO (10-20); Calcium,Total 9.1 mg/dL (8.5-10.1); Chloride 110 mmol/L (98-107); Cholesterol 211 mg/dL (200); Creatinine, Serum 0.96 mg/dL (0.55-1.02); EST Glomerular Filtration Rate 62 mL/min (>60); Est Glom Filt Rate - Afr Amer 75 mL/min (>60); Globulin 3.7 g/dL (2.2-4.2); Glucose 106 mg/dL (74-106); High Density Lipoprotein 74 mg/dL; Potassium 3.2 mmol/L (3.5-5.1); Protein, Total 7.8 g/dL (6.4-8.2); Sodium Level 140 mmol/L (136-145); Triglycerides 196 mg/dL; Very Low Density Lipoprotein 39 mg/dL (5-40)
== END | disposition home or self-care (01) ==
LOC: MTLAB 09:43
PROVIDERS: Referring Provider Nurse Practitioner Family; Visit Provider Nurse Practitioner Family
DX: I10 Essential (primary) hypertension (principal); E78.2 Mixed hyperlipidemia
CPT/HCPCS: 36415; 80053; 80061

== ENCOUNTER → 2023-03-25 | Outpatient (CLI) | payer BC, SELFPAY ==
--- NOTE | 2023-03-25 12:29 | STRESSREP ---
Stress Test Report Date: 03/25/2023 Procedure: Pharmacologic stress nuclear imaging study Indications: Dyspnea on exertion Consent: Per the patient Procedure: The patient underwent pharmacologic (Regadenoson 0.4mg ) evaluation with a peak heart rate of 99 beats per minute (63%predicted maximal heart rate) and a peak blood pressure of 160/102 mmHg. The baseline ECG demonstrated normal sinus rhythm. The peak pharmacologic ECG demonstrated no ischemic changes. There were no cardiac dysrhythmias pretest, during pharmacologic infusion, or recovery. There was no complaint of chest discomfort during pharmacologic infusion or recovery. The patient was injected with 15.0 millicuries of technetium 99m Cardiolite and subsequently rest SPECT Cardiolite nuclear imaging was obtained in the horizontal long, vertical long, and short axis views. The patient underwent pharmacologic (Regadenoson) evaluation. The patient was injected with 43.4 millicuries of technetium 99m Cardiolite and subsequently stress SPECT Cardiolite nuclear imaging was obtained in the horizontal long, vertical long, and short axis views. A gated Cardiolite study at peak stress was obtained. The examination was stopped secondary to completion of protocol. Rest and stress SPECT Cardiolite nuclear imaging status post realignment, normalization, and attenuation correction demonstrate no fixed or reversible perfusion defects. There is end systolic thickening and brightening. The gated Cardiolite study demonstrates myocardial thickening and inward wall motion. The reported LVEF is 43%. Impression: 1. Pharmacologic (Regadenoson) evaluation 2. Peak pharmacologic ECG with no ischemic changes. 3. There were no cardiac dysrhythmias pretest, during pharmacologic infusion, or recovery. 5. No fixed or reversible perfusion defects. 6. The gated Cardiolite study reports an LVEF of 43% with mild LV systolic dysfunction %. This note was generated with [employer] Media[employer] software. It may contain incorrect words, spelling, and punctuation that were not noted in checking the note before signing.
== END | disposition home or self-care (01) ==
PROVIDERS: Referring Provider Nurse Practitioner Family; Visit Provider Nurse Practitioner Family
DX: I10 Essential (primary) hypertension (principal); R06.09 Other forms of dyspnea; R61 Generalized hyperhidrosis
CPT/HCPCS: 78452; 93017; A9500; A4216; J2785

== ENCOUNTER → 2023-05-18 | Outpatient (CLI) | payer BC, SELFPAY ==
[2023-05-18 12:00] LABS: Anion Gap 4 (5-15); BUN 11 mg/dL (7-18); BUN/Creat Ratio 13.5 RATIO (10-20); Calcium,Total 9.1 mg/dL (8.5-10.1); Chloride 107 mmol/L (98-107); Creatinine, Serum 0.82 mg/dL (0.55-1.02); EST Glomerular Filtration Rate 75 mL/min (>60); Est Glom Filt Rate - Afr Amer 90 mL/min (>60); Glucose 111 mg/dL (74-106); Potassium 3.3 mmol/L (3.5-5.1); Sodium Level 141 mmol/L (136-145); Thyroid Stim Hormone (TSH) 3.43 uIU/mL (0.358-3.74)
== END | disposition home or self-care (01) ==
PROVIDERS: Referring Provider Internal Medicine Cardiovascular Disease; Visit Provider Internal Medicine Cardiovascular Disease
DX: I42.9 Cardiomyopathy, unspecified (principal); R94.39 Abnormal result of other cardiovascular function study; I10 Essential (primary) hypertension; R00.2 Palpitations
CPT/HCPCS: 36415; 80048; 84443

== ENCOUNTER → 2023-06-13 | Outpatient (CLI) | payer BC, MEDICARE, SELFPAY ==
--- NOTE | 2023-06-13 13:00 | ECHOD_ITS ---
Reason For Study: CMP Procedure This was a 2D Doppler, Color Flow transthoracic echocardiogram. Myocardial strain analysis was performed in this exam to aid in the assessment of cardiac function. Exam performed in department. Left Ventricle Normal LV size. The global longitudinal strain = -13.0% (abnormal). The estimated ejection fraction is 35 %. Stage 1 diastolic dysfunction. There is moderate global hypokinesis of the left ventricle. Right Ventricle Normal RV size. Normal systolic function. Atria The left atrium is moderately enlarged. Normal right atrium. Mitral Valve The mitral valve is structurally normal. No prolapse or stenosis seen. Moderate (2+) posteriorly directed mitral valve insufficiency. Tricuspid Valve Normal tricuspid valve. Trivial tricuspid valve insufficiency. Unable to estimate RV systolic pressure due to insufficient tricuspid regurgitant envelope. Aortic Valve Trisinus/trileaflet aortic valve. Pulmonic Valve Trivial pulmonic valve insufficiency. Great Vessels Normal aortic root. Pericardium/Pleural Small pericardial effusion. MMode/2D Measurements & Calculations LVIDd: 5.1 cm IVSd: 1.2 cm Ao root diam: 3.1 cm LVIDs: 4.4 cm LVPWd: 1.1 cm LA dimension: 3.5 cm RVDd: 2.2 cm FS: 14.5 % LAV(MOD-bp): 42.1 ml LVAd ap4: 26.8 cm2 SV(MOD-sp4): 30.5 ml LAV(MOD-bp) Indexed: 24.3 ml/m2 LVLd ap4: 7.1 cm LAV(MOD-sp2): 45.4 ml EDV(MOD-sp4): 83.1 ml LAV(MOD-sp4): 37.7 ml EDV(sp4-el): 85.2 ml LVAs ap4: 19.8 cm2 LVLs ap4: 6.5 cm ESV(MOD-sp4): 52.6 ml ESV(sp4-el): 51.1 ml EF(MOD-sp4): 36.7 % EF(sp4-el): 40.0 % SV(sp4-el): 34.1 ml LA A4 area: 15.5 cm2 RA A4 area: 12.2 cm2 TAPSE: 1.9 cm Time Measurements MV dec time: 0.21 sec Doppler Measurements & Calculations MV E max polo: 68.4 cm/sec Lat Peak E' Polo: 9.8 cm/sec Med Peak E' Polo: 6.6 cm/sec MV A max polo: 94.0 cm/sec E/E' lat: 7.0 E/E' med: 10.4 MV E/A: 0.73 MV V2 max: 90.8 cm/sec MV P1/2t max polo: 85.7 cm/sec Ao V2 max: 124.2 cm/sec MV max P.3 mmHg MV P1/2t: 76.8 msec Ao max P.2 mmHg MV V2 mean: 46.6 cm/sec MV dec slope: 327.0 cm/sec2 Ao V2 mean: 89.1 cm/sec MV mean P.0 mmHg Ao mean P.6 mmHg MV V2 VTI: 26.9 cm MVA(P1/2t): 2.9 cm2 Ao V2 VTI: 29.2 cm AV (velocity ratio): 0.62 LV V1 max: 77.9 cm/sec MR max polo: 630.0 cm/sec PA V2 max: 76.6 cm/sec LV V1 max P.4 mmHg MR max P.8 mmHg LV V1 mean P.3 mmHg MR mean polo: 494.8 cm/sec LV V1 mean: 53.8 cm/sec MR mean P.3 mmHg LV V1 VTI: 18.0 cm MR VTI: 240.5 cm ECHO/Echo Complete Interpretation Summary The estimated ejection fraction is 35 %. Stage 1 diastolic dysfunction. There is moderate global hypokinesis of the left ventricle. The left atrium is moderately enlarged. Moderate (2+) posteriorly directed mitral valve insufficiency. Small pericardial effusion. Ordering Physician: Kina Cooper Referring Physician: Kina Cooper Performed By: Pacheco Sutton RCS
== END | disposition home or self-care (01) ==
PROVIDERS: Referring Provider Internal Medicine Cardiovascular Disease; Visit Provider Internal Medicine Cardiovascular Disease
DX: I42.9 Cardiomyopathy, unspecified (principal); R94.39 Abnormal result of other cardiovascular function study; I10 Essential (primary) hypertension
CPT/HCPCS: 93306

== ENCOUNTER → 2023-06-29 | Outpatient (CLI) | payer BC, MEDICARE, SELFPAY ==
[2023-06-29 13:51] LABS: Anion Gap 5 (5-15); BUN 18 mg/dL (7-18); BUN/Creat Ratio 18.9 RATIO (10-20); Calcium,Total 9.5 mg/dL (8.5-10.1); Chloride 101 mmol/L (98-107); Creatinine, Serum 0.95 mg/dL (0.55-1.02); EST Glomerular Filtration Rate 63 mL/min (>60); Est Glom Filt Rate - Afr Amer 76 mL/min (>60); Glucose 95 mg/dL (74-106); Potassium 3.8 mmol/L (3.5-5.1); Sodium Level 135 mmol/L (136-145)
== END | disposition home or self-care (01) ==
PROVIDERS: PCP Nurse Practitioner Family; Referring Provider Internal Medicine Cardiovascular Disease; Visit Provider Internal Medicine Cardiovascular Disease
DX: E87.6 Hypokalemia (principal); I42.9 Cardiomyopathy, unspecified; Z51.81 Encounter for therapeutic drug level monitoring; Z79.899 Other long term (current) drug therapy
CPT/HCPCS: 36415; 80048

== ENCOUNTER → 2023-08-19 | Outpatient (CLI) | payer BC, MEDICARE, SELFPAY ==
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
[2023-08-19 08:11] VITALS: BP 133/83; PULSE 81; O2SAT 96
--- NOTE | 2023-08-19 08:11 | PCM.CR.ITP ---
Diagnosis General Information Admitting Diagnosis: stable angina, HF w/EF<35% Personal Learning Style:: Audio/Visual Stage of change r/t lifestyle modifications:: Contemplation Gave educational material for:: Treating Heart Disease, How The Heart Works, What it means to have Heart Disease, How Coronary Artery Disease is Diagnosed, Heart Procedures, What Heart Medications Do, Risk Factors & Modifications, Living an Active Life, Nutrition, Emotions & Heart Disease, Stress Management & Relaxation and Sleep Disorders & Heart Disease Education/Goals Cardiac Rehabilitation Goals Personal Goals: Initial Assessment: Improve management of stress and emotions, Improve energy level, Participate in home exercise program, Get back to work, or to resume activities faster, Improve muscle strength and endurance, Improve diet and eating habits (eat healthier), Control risk factors (learn risk factor modification) and Other goal: (get into group exercise class) Scale for measuring improvement of personal goals Diagnosis & Disease Process Outcomes/Goals: Pt IDs own risk factors & lifestyle modifications by Session 10, Verbalizes symptoms of angina & response by session 3., Pt independently manages and Other Additional Outcomes/Goals: Plan/Interventions: Assist Pt to ID & engage in lifestyle modification to reduce CVD risk, Instruct on individual risk factors, Review symptoms of angina & emergency actions, Review secondary diagnosis & identify educational needs. and Other see comment 30 day Reassessments:: Not Met 30 day Reassessments:: Not Met 30 day Reassessments:: Not Met 30 day Reassessments:: Not Met Final Reassessments:: Not Met Safety Referral to Physical Therapy: No Referral to [facility] Case Management: No Fall Risk Assessed:: Yes Assistive Devices:: None Exercise - Initial Assessment Visit Date of Eval: 08/19/23 (initial eval ) Mets: Pre-: >3 METS for 30 minutes by discharge, >5 METS for 30 minutes by discharge, >7 METS for 30 minutes by discharge and Unable to meet goal due to: (see comment below) Physician Prescribed Exercise Modalities: Treadmill, Rower, Airdyne, NuStep, SciFit and Lateral Multi Spindle Operator Frequency: 3x/week for 12 weeks [36 sessions] Intensity: 60-80% of age predicted maximum heart rate reserve Duration: 30 - 45 minutes Current METSs:: 3 Target Heart Rate:: 93-116 Resting Blood Pressure: 133/83 EKG Type: SR -short MA syndrome Outcomes & Goals Goals:: Verbalizes understanding of THR, RPE & goal METS by session 6, Documents in home exercise log/reports 30 min aerobic 5 day/wk by DC, Demonstrates accurate pulse taking by DC and Other additional outcome/goals: see below Intervention & Plan Exercise Program Goals: Instruct on personal THR & RPE, Instruct on MET level & personal MET goal, Show patient to take own pulse /validate performance until accurate, Instruct on home exercise and Other additional plan/int Physical Activity Home Exercise Physical Activity - Home Exercise: Safe Exercise, Warm-up, Self-monitoring, Cool-Down, Home Exercise > 30 min Daily and Sitting Time <3 hours/daily Outcomes & Goals Outcomes/Goals: Demonstrates correct Warm-up/exercise Cool-Down (S3) if = 2.5 METs, Verbalizes symptoms of exercise intolerance by Session 3 (S3), Demonstrate safe equipment use (S3) & follows exercise prescrition (6) and Other: See below Intervention & Plan Plan/Intervention: Instruct warm-up & cool-down if exercising at > 2 METs, Instruct on symptoms of exercise intolerance & actions to take, Instruct & monitor on saf, Assess intial functional capacity & safety risk and Other See below Nutrition - Initial Assessment Program Goals Nutrition Program Goals Patient has diagnosis of Hyperlipidemia (ICD E78)?: Yes Visit Date of Eval: 08/19/23 (initial eval ) Cholesterol/Lipids (Other Core Measures) Determine presence & major risk factors that modify LDL goal: Cigarette smoking, Hypertension or hypertensive medication, Low HDL cholesterol <40 mg/dL*, Family history of premature CHD in Male < 55 years: female <65 yearsFa and Age men > 45 years; women >/= 55 years Outcomes/Goals: Pt IDs own risk factors & lifestyle modifications by Session 10, Verbalizes symptoms of angina & response by session 3., Pt independently manages and Other Additional Outcomes/Goals: Intervention/Plan: Advocate for lipid panel cholesterol medication if applicable, Instruct on personal lipid levels & lipid goals/NCEP guidelines, Instruct on cholesterol and Other additional plan/int Referral to dietitian:: No (declines) Diabetes (Other Core Measures) Diabetes Type: Not Applicable Weight Mgt (Other Care) Height: 5 ft 5 in Weight:: 153 lb BMI: 25.4 Diagnosis Overweight/Obesity BMI> 30% ICD-10 E66: No Diagnosis High BMI/Morbid Obesity BMI> 35% ICD-10 Z68: No Outcomes/Goals: Pt sets, maintains & shows weight loss goal & trend during rehab and Other additional outcomes/goals Intervention/Plan: Instruct on ideal BMI & set weight loss goal w/patient, Assist pt to ID & incorporate diet changes for weight loss by S9, Refer to Structured Weight Loss program as appropriate, Encourage goal of using 250-300dcal per session for weight loss and Other additional plan/interventions Healthy Eating Habits Will attend diet classes:: Yes Outcomes/Goals:: Consume diet rich in vegs,fruits,whole grain/high fiber,fish,lean meat, Limit sat/trans fats,cholesterol & added salts & sugars and Other additional outcome/goals: Intervention/Plan:: Assess current eating habits and Other Additional plan/interventions Education Gave educational materials for:: Signs & symptoms of hypoglycemia, Signs & symptoms of hyperglycemia, Relate diabetes to coronary artery disease and Healthy eating Core - Initial Assessment Visit Date of Eval: 08/19/23 (initial eval ) Medication Compliance Preventative Medication(s):: Statin/lipid, Beta kelsea and ARB (Angiotensi Rcap) H/O mental health issues: depression, anxiety, or addiction?: Yes Doesn?t believe in the benefits of treatment?: No Believes medications are unnecessary or harmful?: No Has a concern about medication side effects?: No Expresses concern over the cost of medications?: No Outcomes/Goals: Verbalizes medications,desired effect & common side effects @ DC, Pt self-reports following medication regimen, Keeps card in wallet w/medications listed by DC and Other additional outcome/goals: Interventions/plans: Instruct on medication effects & side effects, Review medication list w/patient every two weeks, Instruct importance of taking meds as ordered & assist problem solving and Other additional Tobacco Use Tobacco Use: Non-smoker Hypertension Hypertension Diagnosis:: Hypertension ICD-10 I10 Resting Blood Pressure:: 133/83 [place] [employer] Hypertension Guidelines Outcomes/Goals: Able to verbalize/achieve optimal blood pressure <130/80, Incorporates diet changes & exercise for blood pressure control by DC and Other additional outcomes/goals Interventions/plan: Instruct on optimal blood pressure, hypertension & medications, Instruct on effects of sodium, alcohol, stress, exercise &hypertension and Other additional plan/interventions Tobacco Cessation Referral Smoking Cessation Referral:: No Individual Education/Counseling:: No Education Schedule Given:: Yes Psychosocial - Initial Assess VIsit Date of Eval: 08/19/23 (initial eval ) History of previous Mental disease:: Yes History of Emotional Disorders: Depression (Pt states she is doing okay and does not need counseling.) Self-reported stressors Other/Comments:: Family Target Goals Target Goals Outcomes/Goals: See list Psychosocial Outcomes/Goals:: ID's personal stressors & 2 strategies to manage stress by discharge and Other Additional outcome/goals: Intervention/Plan: See List Interventions/Plan:: Assess stressors,coping strategies & signs of derpression on admission, Instruct/assist pt to develop coping & personal stress Mgt strategies, Refer to Behavioral Health if appropriate, Refer to Physician if appropriate, Instruct patient to recognize signs & symptoms of depression, Instruct patient to recog and Other additional plan/intervention Patient Health Questionnaire PHQ-9 Screening Initial Assessment: 1. Little interest or pleasure in doing things: Nearly every day 2. Feeling down, depressed, or hopeless: Nearly every day 3. Trouble falling or staying asleep, or sleeping too much: Nearly every day 4. Feeling tired or having little energy: Nearly every day 5. Poor appetite or overeating: Nearly every day 6. Feeling bad about yourself -- or that you are a failure or have let yourself or your family down: Nearly every day 7. Trouble concentrating on things, such as reading the newspaper or watching television: Nearly every day 8. Moving or speaking so slowly that other people could have noticed. Or the opposite - being so fidgety or restless that you have been moving around a lot more than usual: Not at all 9. Thoughts that you would be better off , or of hurting yourself in some way: Not at all How difficult have these problems made it for you to do your work, take care of things at home, or get along with other people?: Very difficult Total Score: 21 KELLIE-Q SV Test Statements CAD is a disease of the arteries in the heart: False Examples of risk factors for heart disease: True Angina is chest pain or discomfort: True The benefits of resistance training include: True Eating more meat and dairy products: I Don't Know Anti-platelet medications such as aspirin are important: True The only effective way to manage stress: False An exercise warm-up slowly increases heart rate: True Prepared, processed foods usually have high sodium: True Depression is common after a heart attack: True The statin medications lower cholesterol: True To control blood pressure, lower the amount of sodium: True If someone gets chest discomfort during walking: False Transfats are partially hydrogenated vegetable oils: I Don't Know Sleep apnea that is not treated increases the risk: True To control cholesterol, one should become a vegetarian: False Someone knows if he/she is exercising at the right level: True Diabetes cannot be prevented with exercise & health eating: False Stress is a large risk for heart attack: True A diet that can help lower blood pressure is rich in: True Total Score Total Correct Responses: 17 Self-Efficacy 6-Item Scale Initial Assessment: We would like to know how confident you are in doing certain activities. Please select your confidence level for: Fatigue Select Number: 2 Physical Discomfort or Pain Select Number: 2 Emotional Distress Select Number: 2 Other Symptoms or Health Problems Select Number: 2 Different Tasks and Activities Select Number: 8 Medication Select Number: 8 Total Score:: 4 Nutrition Survey Nutrition Survey Instructions Scoring Instructions Nutrition Survey Initial: Have you lost >10 lbs over the past 2 months without trying?: No Are you following a special diet at home for diabetes, low fat, or low salt?: No Are you interested in meeting with a dietitian for help understanding your diet?: Yes Do you eat less than 3 meals a day?: No Do you eat fatty meats (graham, sausage, ribs, etc), fried foods, desserts, large amounts of salad dressings, margarine, butter, or cheese most days?: Yes Do you have food allergies? [Enter types in comment field]: No Do you eat in restaurants more than 3 times a week?: No Do you season food with salt, seasoning salt, or garlic salt?: Yes Do you used canned, boxed, frozen meals, or soups, seasoning packets?: Yes Total Score:: 4 Exercise - Final/Discharge Physician Prescribed Exercise Modalities: Treadmill, Rower, Airdyne, NuStep, SciFit and Lateral [place] Frequency: 3x/week for 12 weeks [36 sessions] Intensity: 60-80% of age predicted maximum heart rate reserve Current METSs:: 3 Target Heart Rate:: 93-116 Nutrition - 30-Day Assessment Weight Mgt (Other Care) Height: 5 ft 5 in Weight:: 153 lb BMI: 25.4 Nutrition - 60-Day Assessment Weight Mgt (Other Care) Height: 5 ft 5 in Weight:: 153 lb BMI: 25.4 Core - Final Assessment Hypertension Resting Blood Pressure:: 133/83 [place] [employer] Hypertension Guidelines Core - 60-Day Assessment Hypertension Resting Blood Pressure:: 133/83 [place] [employer] Hypertension Guidelines Psychosocial - 30-Day Assess Target Goals Target Goals Psychosocial - 60-Day Assess Target Goals Target Goals Psychosocial - 90-Day Assess Target Goals Target Goals Psychosocial - Final Assessmen Target Goals Target Goals Nutrition - 90-Day Assessment Weight Mgt (Other Care) Height: 5 ft 5 in Weight:: 153 lb BMI: 25.4 Nutrition - Final Assessment Program Goals Patient has diagnosis of Hyperlipidemia (ICD E78)?: Yes Weight Mgt (Other Care) Height: 5 ft 5 in Weight:: 153 lb BMI: 25.4
[2023-08-19 08:18] VITALS: BP 133/83
[2023-08-19 08:30] VITALS: BMI 25.4
[2023-08-19 08:57] VITALS: BMI 25.4
== END | disposition home or self-care (01) ==
LOC: CR 08:00
PROVIDERS: PCP Nurse Practitioner Family; Referring Provider Internal Medicine Cardiovascular Disease; Visit Provider Internal Medicine Cardiovascular Disease
DX: I20.89 Other forms of angina pectoris (principal); I50.9 Heart failure, unspecified

== ENCOUNTER 2023-08-31 08:00 | Outpatient (RCR) | payer BC, MEDICARE, SELFPAY ==
[2023-08-19 08:57] VITALS: BMI 25.4
== END 2023-09-01 23:59 ==
LOC: CR 08:00
PROVIDERS: PCP Nurse Practitioner Family; Referring Provider Internal Medicine Cardiovascular Disease; Visit Provider Internal Medicine Cardiovascular Disease
DX: R94.39 Abnormal result of other cardiovascular function study (principal); I42.9 Cardiomyopathy, unspecified; I10 Essential (primary) hypertension
CPT/HCPCS: 93798

== ENCOUNTER 2023-09-02 06:16 | Outpatient (RCR) | payer BC, MEDICARE, SELFPAY ==
[2023-08-19 08:57] VITALS: BMI 25.4
== END 2023-10-02 23:59 ==
LOC: CR 06:16
PROVIDERS: PCP Nurse Practitioner Family; Referring Provider Internal Medicine Cardiovascular Disease; Visit Provider Internal Medicine Cardiovascular Disease
DX: R94.39 Abnormal result of other cardiovascular function study (principal); I10 Essential (primary) hypertension; I42.9 Cardiomyopathy, unspecified
CPT/HCPCS: 93798

== ENCOUNTER → 2023-09-14 | Outpatient (CLI) | payer BC, MEDICARE, SELFPAY ==
[2023-08-19 08:57] VITALS: BMI 25.4
--- NOTE | 2023-09-14 12:43 | ECHOL_ITS ---
Version 2 Reason For Study: DCMP Procedure This was a limited 2D transthoracic echocardiogram. Myocardial strain analysis was performed in this exam to aid in the assessment of cardiac function. Exam performed in department. Left Ventricle Normal left ventricle. Left ventricular systolic function is lower limits of normal. The estimated ejection fraction is 50 %. There is borderline global hypokinesis of the left ventricle. Right Ventricle Normal RV size. Normal systolic function. Atria Normal left atrium. Normal right atrium. Mitral Valve Normal mitral valve. Pericardium/Pleural No pericardial effusion. MMode/2D Measurements & Calculations LVIDd: 5.2 cm IVSd: 1.3 cm Ao root diam: 3.0 cm LVIDs: 4.3 cm LVPWd: 1.1 cm FS: 17.5 % LAV(MOD-bp): 41.7 ml SV(MOD-sp4): 33.6 ml LVAd ap4: 24.2 cm2 LAV(MOD-bp) Indexed: 23.7 ml/m2 LVLd ap4: 7.4 cm LAV(MOD-sp2): 36.3 ml EDV(MOD-sp4): 68.2 ml LAV(MOD-sp4): 39.2 ml EDV(sp4-el): 68.0 ml LVAs ap4: 15.9 cm2 LVLs ap4: 6.3 cm ESV(MOD-sp4): 34.5 ml ESV(sp4-el): 33.8 ml EF(MOD-sp4): 49.3 % EF(sp4-el): 50.2 % SV(sp4-el): 34.1 ml LA A4 area: 15.6 cm2 LA dimension(2D): 3.2 cm RA A4 area: 8.2 cm2 ECHO/Echo, Limited Study Interpretation Summary Normal left ventricle. Left ventricular systolic function is lower limits of normal. The estimated ejection fraction is 50 %. The global longitudinal strain is mildly abnormal. The global longitudinal stra in = -16.3% (abnormal). Compared to previous study, the left ventricular systolic function has improved.. The global longitudinal strain has improved. Ordering Physician: Kina Cooper Referring Physician: Kina Cooper Performed By: Lizy Vieira RCS
== END | disposition home or self-care (01) ==
LOC: CVS 12:42
PROVIDERS: PCP Nurse Practitioner Family; Referring Provider Internal Medicine Cardiovascular Disease; Visit Provider Internal Medicine Cardiovascular Disease
DX: I42.9 Cardiomyopathy, unspecified (principal)
CPT/HCPCS: 93308

== ENCOUNTER → 2024-02-20 | Outpatient (CLI) | payer BC, MEDICARE, SELFPAY ==
[2023-08-19 08:57] VITALS: BMI 25.4
[2024-02-20 16:09] LABS: BNP,B-Type NATRIURETIC PEPTIDE 4.5 pg/mL (0-100)
[2024-02-20 16:18] LABS: Anion Gap 5 (5-15); BUN 18 mg/dL (7-18); BUN/Creat Ratio 13.3 RATIO (10-20); Calcium,Total 9.6 mg/dL (8.5-10.1); Chloride 101 mmol/L (98-107); Creatinine, Serum 1.35 mg/dL (0.55-1.02); EST Glomerular Filtration Rate 42 mL/min (>60); Est Glom Filt Rate - Afr Amer 51 mL/min (>60); Glucose 118 mg/dL (74-106); Potassium 2.9 mmol/L (3.5-5.1); Sodium Level 135 mmol/L (136-145)
== END | disposition home or self-care (01) ==
PROVIDERS: PCP Nurse Practitioner Family; Referring Provider Physician Assistant Medical; Visit Provider Physician Assistant Medical
DX: M79.89 Other specified soft tissue disorders (principal); I42.9 Cardiomyopathy, unspecified; R06.09 Other forms of dyspnea
CPT/HCPCS: 36415; 80048; 83880

== ENCOUNTER → 2024-03-01 | Outpatient (CLI) | payer BC, MEDICARE, SELFPAY ==
[2023-08-19 08:57] VITALS: BMI 25.4
[2024-03-01 14:20] LABS: Anion Gap 5 (5-15); BUN 11 mg/dL (7-18); BUN/Creat Ratio 9.5 RATIO (10-20); Calcium,Total 9.4 mg/dL (8.5-10.1); Chloride 105 mmol/L (98-107); Creatinine, Serum 1.16 mg/dL (0.55-1.02); EST Glomerular Filtration Rate 50 mL/min (>60); Est Glom Filt Rate - Afr Amer 60 mL/min (>60); Glucose 124 mg/dL (74-106); Potassium 3.9 mmol/L (3.5-5.1); Sodium Level 136 mmol/L (136-145)
== END | disposition home or self-care (01) ==
PROVIDERS: PCP Nurse Practitioner Family; Referring Provider Physician Assistant Medical; Visit Provider Physician Assistant Medical
DX: M79.89 Other specified soft tissue disorders (principal)
CPT/HCPCS: 36415; 80048

== ENCOUNTER 2024-04-07 16:31 | Emergency (ER) | payer BC, MEDICARE, SELFPAY ==
[2023-08-19 08:57] VITALS: BMI 25.4
[2024-04-07 16:31] VITALS: BP 136/75; PULSE 98; RESP 17; TEMP 36.2; O2SAT 96; BMI 26.5
--- NOTE | 2024-04-07 16:44 | EX.ED.DYSGE1 ---
HPI History of Present Illness Chief Complaint: Allergic Reaction Informant: patient and spouse/S.O. Narrative Narrative: 63-year-old female was stung by a hornet on her left foot about 45 minutes ago. Shortly afterward she started itching in her hands and her tongue. She is now feeling like there is tightness in her throat although she can swallow without any difficulty and breathe without any difficulty. She denies any syncope or near syncope. She has never had an allergic reaction to bee stings in the past, but she states she does not think she is ever been stung by a large hornet in the past like she was today. She states her foot is sore from the sting, she already removed the stinger. She does not have asthma she does not have diabetes. [facility] Medical History Cellulitis of axilla, left Encounter for monitoring diuretic therapy Hypokalemia Acute bacterial conjunctivitis Cardiomyopathy Dyslipidemia Abnormal cardiovascular stress test Generalized anxiety disorder Osteoarthritis Iron deficiency anemia ADD (attention deficit disorder) Acute upper respiratory infection Acute bronchitis Acute bronchitis, unspecified Acute sinusitis, unspecified Conjunctivitis, both eyes Strain of right shoulder Allergic conjunctivitis Acute maxillary sinusitis, unspecified Gastroenteritis Hypotension Sepsis UTI (urinary tract infection) SU (acute kidney injury) Depressed Dysuria Impacted cerumen, left ear HISTORY OF BASIL CELL REMOVAL History of sepsis HISTORY OF LUMP REMOVAL FROM THROAT History of uterine fibroid History Collapsed Lungs HISTORY OF RUPTURE OF BLADDER History of rupture of uterus History of fracture of skull HISTORY OF HIP/PELVIS/SUPRA PUBIC INJURY HISTORY OF RIGHT TIB-FIB INJURY UNEXPLAINED BRUISES Fibromyalgia Knee pain Fatigue Heart disease History of cancer Arthritis Hypertension GERD (gastroesophageal reflux disease) HTN (hypertension) HLD (hyperlipidemia) Fibromyalgia Chronic pain syndrome Home Medications ?Medication ?Instructions ?Recorded ?Last Taken ?Type diazepam 5 mg tablet 5 mg PO BID PRN anxiety 05/12/23 Unknown History ascorbic acid (vitamin C) 1,000 mg 2 g PO DAILY 05/18/23 Unknown History tablet biotin 2,500 mcg capsule 2,500 mcg PO DAILY 05/18/23 Unknown History cholecalciferol (vitamin D3) 25 25 mcg PO DAILY 05/18/23 Unknown History mcg (1,000 unit) capsule [id number] 8 mg-folic 400 1 tab PO DAILY 05/18/23 Unknown History mcg-K 50 mcg-lutein 300 mcg tablet (Centrum [place] Women) spironolactone 25 mg tablet 12.5 mg (1/2 x 25 mg) PO DAILY OK 06/22/23 Unknown Rx to take with HCTZ per Dr. Cooper, Cari+ was low #45 tabs losartan 100 mg tablet 100 mg PO DAILY #90 tabs 11/16/23 Unknown Rx metoprolol succinate 200 mg 200 mg PO DAILY #90 tabs 11/16/23 Unknown Rx tablet,extended release 24 hr pantoprazole 20 mg tablet,delayed 20 mg PO DAILY #180 tabs 11/16/23 Unknown Rx release (Protonix) rosuvastatin 10 mg tablet 10 mg PO DAILY 11/16/23 Unknown History empagliflozin 10 mg tablet 10 mg PO DAILY #30 tabs 02/28/24 Unknown Rx (Jardiance) amlodipine 5 mg tablet 5 mg PO DAILY #30 tabs 04/02/24 Unknown Rx epinephrine 0.3 mg/0.3 mL 0.3 mg (0.3 mL) IM Q4H PRN 04/07/24 Unknown Rx injection, auto-injector anaphylaxis #2 ea prednisone 20 mg tablet 40 mg (2 x 20 mg) PO DAILY #4 04/07/24 Unknown Rx TABLETS Allergy/AdvReac Type Severity Reaction Status Date / Time bee venom protein (honey Allergy Mild Itching Verified 04/07/24 16:33 bee) (bee sting) lisinopril AdvReac Intermediate dry cough Verified 04/07/24 16:33 Family History Father Hypertension Heart disease Myocardial infarction Mother Hypertension Sister Heart disease TIA (transient ischemic attack) Diabetes Grandfather Diabetes Grandmother Diabetes Grandmother Cancer Other Nephritis Surgical History History of cataract surgery History of lumpectomy of left breast History of bladder repair surgery History of hysterectomy History of thyroidectomy Social History household members: spouse housing: house Smoking Status: Former smoker alcohol intake: current alcohol intake frequency: holidays/special occasions only substance use type: does not use caffeine: Yes Type: carbonated beverages Number of servings: 3 ROS ROS ED Constitutional Constitutional ED: Denies chills or fever(s) Eyes Eyes: Denies change in vision or diplopia ENT ENT ED: Reports as per HPI and throat swelling; Denies rhinorrhea, sore throat or tongue swelling Cardiovascular Cardiovascular: Denies chest pain or palpitations Respiratory/Chest Respiratory/Chest: Denies cough or dyspnea Gastrointestinal Gastrointestinal: Denies abdominal pain, diarrhea, nausea or vomiting Genitourinary Genitourinary ED: Denies dysuria or hematuria Musculoskeletal Musculoskeletal: Reports other Details: No extremity edema ; Denies back pain or neck pain Integumentary Reports as per HPI and pruritus; Denies abscess or rash Neurologic Neurologic: Denies headache(s), paresthesias or weakness Psychiatric Psychiatric: Denies anxiety or suicidal thoughts EXAM Physical Exam Const Vital Signs: 04/07/24 16:31 04/07/24 16:52 04/07/24 18:02 Temperature 97.2 F L 97.2 F L Temperature Source Temporal Pulse Rate 98 95 100 Respiratory Rate 17 19 H 19 H Blood Pressure 136/75 H 145/83 H 110/70 Blood Pressure Mean 95 103 83 Pulse Ox 96 95 92 Oxygen Delivery Method Room Air Positive well nourished and well developed General Appearance ED: well developed and NAD HEENT Reports moist mucous membranes HEENT Narrative: No tongue edema. No throat edema or trismus. No stridor or dysphonia. normocephalic and atraumatic Eyes PERRL and EOMs intact bilaterally Neck full ROM and supple Chest Wall inspection of chest normal and palpation of chest normal Resp normal respiratory effort and clear to auscultation bilaterally Cardio regular rate, regular rhythm and no murmurs Rate: Negative for tachycardic Back/Spine General Back: other FROM Extremity normal to inspection General Extremety ED: Negative for edema, pulses abnormal or tenderness General Extremity: Negative for edema or pulses abnormal Neuro oriented x3, CN's II-XII intact bilaterally, no sensory deficits noted and gait normal Sensorium / Orientation: awake and alert Motor Exam: strength 5/5 throughout Psych Mood & Affect: anxious Skin no rashes or lesions noted and no wounds Skin Narrative: No rashes, but there is a [id number] that is mildly tender on the medial arch of her left foot. MDM MDM MDM Narrative Medical decision making narrative: Patient has no edema, clear lungs, and normal vital signs. Clearly not in anaphylactic shock, but having mild anaphylactoid reaction. She took 25 mg of Benadryl orally prior to arrival, we treated her with an EpiPen and prednisone 40 mg orally. I reevaluation an hour later she is asymptomatic, the symptoms are resolved after the EpiPen. Watch her for another 30 minutes she had no recurrence of symptoms, at this time I am comfortable sending her home with another 2 days of prednisone and a prescription for an EpiPen, she was cautioned that the next time she gets stung by any bee it is possible she could have a more pronounced reaction. Discharge Plan Triage Chief Complaint: Allergic Reaction ED Provider: Quinton Dominguez Dx/Rx/DC Orders Clinical Impression: Anaphylactoid reaction, Allergic reaction to hymenoptera venom Instructions: ED BEE STING General Allergic Rxn Prescriptions: New prednisone 20 mg tablet 40 mg PO DAILY Qty: 4 0RF epinephrine 0.3 mg/0.3 mL auto-injector 0.3 mg IM Q4H PRN (Reason: anaphylaxis) Qty: 2 0RF No Action rosuvastatin 10 mg tablet 10 mg PO DAILY diazepam 5 mg tablet 5 mg PO BID PRN (Reason: anxiety) ascorbic acid (vitamin C) 1,000 mg tablet 2 g PO DAILY cholecalciferol (vitamin D3) 25 mcg (1,000 unit) capsule 25 mcg PO DAILY biotin 2,500 mcg capsule 2,500 mcg PO DAILY Centrum Silver Women 8 mg iron-400 mcg-50 mcg tablet 1 tab PO DAILY metoprolol succinate 200 mg tablet extended release 24 hr 200 mg PO DAILY Qty: 90 3RF pantoprazole [Protonix] 20 mg tablet,delayed release (DR/EC) 20 mg PO DAILY Qty: 180 3RF losartan 100 mg tablet 100 mg PO DAILY Qty: 90 3RF spironolactone 25 mg tablet 12.5 mg PO DAILY Qty: 45 3RF Jardiance 10 mg tablet 10 mg PO DAILY Qty: 30 11RF amlodipine 5 mg tablet 5 mg PO DAILY Qty: 30 6RF Primary Care Provider: Diego Burrell NP Referrals: Diego Burrell NP, [facility] [Primary Care Provider] - Activity Restrictions/Additional Instructions: Take prednisone prescription starting tomorrow 04/08 since she received the first dose in the ER today 04/07. Print Language: Indonesian Disposition Disposition: Home, Self Care
[2024-04-07] MEDS: predniSONE 20 MG Tablet 40 MG PO (16:48)
[2024-04-07] MEDS: Epi Pen (EQUIV) 0.3 MG Syringe IM (16:49)
[2024-04-07 16:52] VITALS: BP 145/83; PULSE 95; RESP 19; O2SAT 95
[2024-04-07 18:02] VITALS: BP 110/70; PULSE 100; RESP 19; TEMP 36.2; O2SAT 92
== END 2024-04-07 18:11 | disposition home or self-care (01) ==
PROVIDERS: Emergency Provider Emergency Medicine; PCP Nurse Practitioner Family; Visit Provider Emergency Medicine
DX: T63.441A Toxic effect of venom of bees, accidental (unintentional), initial encounter (principal); M79.7 Fibromyalgia; Z87.891 Personal history of nicotine dependence; I10 Essential (primary) hypertension; E78.5 Hyperlipidemia, unspecified; K21.9 Gastro-esophageal reflux disease without esophagitis; Z79.899 Other long term (current) drug therapy
CPT/HCPCS: 99283

== ENCOUNTER → 2024-05-18 | Outpatient (CLI) | payer BC, MEDICARE, SELFPAY ==
[2023-08-19 08:57] VITALS: BMI 25.4
[2024-05-18 11:04] LABS: Anion Gap 5 (5-15); BUN 17 mg/dL (7-18); BUN/Creat Ratio 14.4 RATIO (10-20); Chloride 107 mmol/L (98-107); Creatinine, Serum 1.18 mg/dL (0.55-1.02); EST Glomerular Filtration Rate 49 mL/min (>60); Est Glom Filt Rate - Afr Amer 59 mL/min (>60); Glucose 108 mg/dL (74-106); Potassium 3.8 mmol/L (3.5-5.1); Sodium Level 139 mmol/L (136-145)
[2024-05-18 11:05] LABS: BNP,B-Type NATRIURETIC PEPTIDE 17.6 pg/mL (0-100)
== END | disposition home or self-care (01) ==
LOC: LAB 10:22
PROVIDERS: PCP Nurse Practitioner Family; Referring Provider Nurse Practitioner Family; Visit Provider Nurse Practitioner Family
DX: R06.09 Other forms of dyspnea (principal)
CPT/HCPCS: 36415; 80048; 83880

== ENCOUNTER → 2024-12-06 | Outpatient (CLI) | payer BC, MEDICARE, SELFPAY ==
[2023-08-19 08:57] VITALS: BMI 25.4
--- NOTE | 2024-12-06 10:01 | ECHOD_ITS ---
Reason For Study Reason For Study: DYSPNEA Procedure This was a 2D Doppler, Color Flow transthoracic echocardiogram. Myocardial strain analysis was performed in this exam to aid in the assessment of cardiac function. The study was technically difficult. Exam performed in department. Left Ventricle Normal LV size. Mild concentric left ventricular hypertrophy. Normal LV systolic function. Estimated LVEF 60%. Global longitudinal strain -17.5% which is normal. Stage I diastolic dysfunction. Right Ventricle Normal right ventricle. Atria The left and right atria are normal. Mitral Valve Trivial mitral valve insufficiency. Tricuspid Valve Normal tricuspid valve. Aortic Valve Trisinus/trileaflet aortic valve. Pulmonic Valve The pulmonic valve is not well visualized. Great Vessels Normal sized aortic root. Pericardium/Pleural Trivial to small posterior pericardial effusion. Very prominent epicardial fat pad versus organized effusion. Recommend CT scan for further evaluation. MMode/2D Measurements & Calculations LVIDd: 4.6 cm IVSd: 1.2 cm Ao root diam: 3.2 cm LVIDs: 3.0 cm LVPWd: 1.0 cm RVDd: 2.4 cm FS: 35.7 % LAV(MOD-sp2): 30.3 ml LVAd ap4: 22.7 cm2 LVAd ap2: 16.6 cm2 LVLd ap4: 6.6 cm LVLd ap2: 6.3 cm EDV(MOD-sp4): 68.4 ml EDV(MOD-sp2): 36.8 ml EDV(sp4-el): 66.0 ml EDV(sp2-el): 37.3 ml LVAs ap4: 12.0 cm2 LVAs ap2: 9.6 cm2 LVLs ap4: 5.3 cm LVLs ap2: 5.4 cm ESV(MOD-sp4): 23.9 ml ESV(MOD-sp2): 14.6 ml ESV(sp4-el): 23.3 ml ESV(sp2-el): 14.3 ml EF(MOD-sp4): 65.0 % EF(MOD-sp2): 60.2 % EF(sp4-el): 64.7 % SV(MOD-sp4): 44.5 ml SV(MOD-sp2): 22.1 ml SV(sp4-el): 42.7 ml SI(MOD-sp4): 23.9 ml/m2 SI(MOD-sp2): 11.9 ml/m2 LA dimension(2D): 3.1 cm TAPSE: 1.7 cm Time Measurements MV dec time: 0.16 sec Doppler Measurements & Calculations MV E max polo: 56.8 cm/sec Lat Peak E' Polo: 7.7 cm/sec Med Peak E' Polo: 7.3 cm/sec MV A max polo: 86.1 cm/sec E/E' lat: 7.3 E/E' med: 7.8 MV E/A: 0.66 MV dec slope: 352.5 cm/sec2 Ao V2 max: 103.6 cm/sec LV V1 max: 58.5 cm/sec Ao max P.3 mmHg LV V1 max P.4 mmHg Ao V2 mean: 72.3 cm/sec LV V1 mean P.75 mmHg Ao mean P.3 mmHg LV V1 mean: 41.1 cm/sec Ao V2 VTI: 20.6 cm LV V1 VTI: 10.8 cm AV (velocity ratio): 0.52 PA V2 max: 73.1 cm/sec TR max polo: 211.2 cm/sec TR max P.8 mmHg ECHO/Echo Complete Interpretation Summary Mild concentric left ventricular hypertrophy. Normal LV systolic function. Estimated LVEF 60%. Global longitudinal strain -17 .5% which is normal. Stage I diastolic dysfunction. Trivial to small posterior pericardial effusion. Very prominent epicardial fat pad versus organized effusion. Recommend CT scan for further evaluation. The study was technically difficult. Ordering Physician: Kina Cooper Referring Physician: Diego Burrell Performed By: Shannon Wu, JOEY, RVT
== END | disposition home or self-care (01) ==
LOC: CVS 10:01
PROVIDERS: PCP Nurse Practitioner Family; Referring Provider Internal Medicine Cardiovascular Disease; Visit Provider Internal Medicine Cardiovascular Disease
DX: I42.9 Cardiomyopathy, unspecified (principal); R06.02 Shortness of breath
CPT/HCPCS: 93306

== ENCOUNTER → 2025-01-12 | Outpatient (CLI) | payer BC, MEDICARE, SELFPAY ==
[2023-08-19 08:57] VITALS: BMI 25.4
--- NOTE | 2025-01-12 09:37 | CT_ITS ---
PROCEDURE: CHEST WITHOUT CONTRAST 01/12/2025 REASON FOR EXAM: ABNORMAL ECHOCARDIOGRAM TECHNIQUE: Chest CT without contrast. Coronal and Sagittal reconstruction series were provided. One or more dose reduction techniques were used (e.g., Automated exposure control, adjustment of the mA and/or kV according to patient size, use of iterative reconstruction technique COMPARISON: None FINDINGS: Heart size is within normal limits. No significant pericardial effusion or coronary artery calcifications. Normal caliber thoracic aorta and pulmonary arteries. No suspicious adenopathy. Small hiatal hernia. No acute findings in the visualized upper abdomen. Central airways are patent. No acute infiltrates, pleural effusion or pneumothorax. Mild linear scarring in the left lower lobe. No suspicious pulmonary nodule or mass. No acute osseous abnormality. CT/Chest without Contrast IMPRESSION: No acute process. Reading Location: [facility]
== END | disposition home or self-care (01) ==
LOC: CT 09:27
PROVIDERS: PCP Nurse Practitioner Family; Referring Provider Nurse Practitioner Family; Visit Provider Nurse Practitioner Family
DX: R93.1 Abnormal findings on diagnostic imaging of heart and coronary circulation (principal)
CPT/HCPCS: 71250

== ENCOUNTER → 2025-02-20 | Outpatient (CLI) | payer BC, MEDICARE, SELFPAY ==
[2023-08-19 08:57] VITALS: BMI 25.4
--- NOTE | 2025-02-20 13:35 | VDLE_ITS ---
Reason For Study Reason For Study: BLE Swelling RIGHT LEFT GSV is normal. GSV is normal. CFV is compressible, spontaneous, phasic, competent CFV is compressible, spontaneous, phasic, competent, and demonstrates normal augmentation. and demonstrates normal augmentation. FV is compressible, spontaneous, phasic, competent FV is compressible, spontaneous, phasic, competent and demonstrates normal augmentation. and demonstrates normal augmentation. POP V is compressible, spontaneous, and phasic. POP V is compressible, spontaneous, and phasic. T/P Trunk is compressible. T/P Trunk is compressible. PTV is compressible. PTV is compressible. Acute deep vein thrombosis is noted in the Per V. It LT PerV is compressible. is dilated and NONCOMPRESSIBLE. Acute deep vein thrombosis is noted in the Nonvascularized area of mixed echogenicity noted at Gastrocnemius V. It is dilated and NONCOMPRESSIBLE. right medial knee measuring approximately 4.66cm x 1.19cm. Procedure This is a venous duplex using B-mode, color flow and spectral Doppler. Exam performed in department. The exam was diagnostic. A preliminary report was called and/or faxed to Dara HORNE. VL/Venous Duplex US - Jc Extrem Interpretation Summary Acute deep vein thrombosis is noted in the right peroneal vein. Acute deep vein thrombosis is noted in the left gastrocnemius vein. Nonvascularized area of mixed echogenicity noted at right medial knee measuring approximately 4.66cm x 1.19cm. Ordering Physician: Dara Pierre Referring Physician: Diego Burrell Performed By: Boby Luna, RVT
== END | disposition home or self-care (01) ==
LOC: CVS 13:35
PROVIDERS: PCP Nurse Practitioner Family; Referring Provider Physician Assistant Medical; Visit Provider Physician Assistant Medical
DX: M79.89 Other specified soft tissue disorders (principal); I70.92 Chronic total occlusion of artery of the extremities
CPT/HCPCS: 93970

== ENCOUNTER → 2025-03-22 | Outpatient (CLI) | payer BC, MEDICARE, SELFPAY ==
[2023-08-19 08:57] VITALS: BMI 25.4
--- NOTE | 2025-03-22 07:58 | CT_ITS ---
PROCEDURE: CTA CHEST W/WO CONTRAST 03/22/2025 REASON FOR EXAM: SOB TECHNIQUE: CTA CHEST W/WO CONTRAST Multiplanar Sagittal and Coronal images were obtained. CONTRAST: Isovue 370 VOLUME: 100 mL One or more dose reduction techniques were used (e.g., Automated exposure control, adjustment of the mA and/or kV according to patient size, use of iterative reconstruction technique). RADIATION DOSE SUMMARY: CTDlvol: 9.50 and 14.52 mGy DLP: 524.34 mGycm COMPARISON: CT chest January 12, 2025 FINDINGS: Thoracic Aorta: Normal caliber. Low plaque burden. Heart: Normal size. Pulmonary Vessels: No PE. Hardware: None. Lymph nodes: Prominent right lymph nodes not pathologic by size criteria Lungs and Airways: Clear Pleura: Unremarkable. No pleural effusion. Small hiatal hernia. No acute findings Upper Abdomen: Hiatal hernia, small. No acute process Bones: No aggressive process. CT/CTA Chest W/WO Contrast IMPRESSION: No PE. No right heart strain. Small hiatal hernia. No acute process detected. Reading Location[facility]
--- OUTSIDE RECORDS SUMMARY | 2025-03-22 08:15 | XMS RPT_ITS | CCD ---
Author Organization [facility] CliniSy[facility] Care Team Providers Care Sales Professional Bilingual Name Role Phone SEESE, YUE Q Unavailable Unavailable SEESE, YUE Q Unavailable Unavailable SEESE, YUE Q Unavailable Unavailable SEESE, YUE Q Unavailable Unavailable Unavailable Primary Care Provider Unavailabl e Unavailable Primary Care Provider Unavailabl e Unavailable Primary Care Provider Unavailabl e Dr. Gianluca Nunez Primary Care Provider Dr. Gianluca Nunez Referring Provider OZZIE Brasher Attending Provider [phone] OZZIE Benton Attending Provider Dr. Gianluca Nunez Primary Care Provider Dr. Gianluca Nunez Referring Provider Zoey PEDIATRIC PATHOLOGIST, PEDIATRIC PATHOLOGIST-C Diego Referring Provider Zoey PEDIATRIC PATHOLOGIST, PEDIATRIC PATHOLOGIST-C Diego Other Provider Dr. Kina oCoper Attending Provider GRETA TAFOYA Attending Unavailable GRETA TAFOYA Attending Unavailable GRETA TAFOYA Attending Unavailable GRETA TAFOYA Attending Unavailable Dr. Gianluca Nunez Primary Care Provider Dr. Gianluca Nunez Referring Provider OZZIE Brasher Attending Provider Dr. Gianluca Nunez Primary Care Provider Dr. Gianluca Nunez Referring Provider Dr. Kina Cooper Attending Provider OZZIE Brasher Attending Provider Dr. Kina Cooper Referring Provider Zoey PEDIATRIC PATHOLOGIST, PEDIATRIC PATHOLOGIST-C Diego Primary Care Provid er Zoey PEDIATRIC PATHOLOGIST, PEDIATRIC PATHOLOGIST-C Diego Referring Provider Epifanio HORNE, OZZIE Contreras Attending Provider Mayra, Dr. Hough Primary Care Provider [phone] Dr. Kina Cooper Attending Provider Dr. Eric Pete Attending Provider Unavailable Primary Care Provider Unavailabl e Zoey W[place], Grant Primary Care Provider Dr. Gianluca Nunez Primary Care Provider Mayra, Dr. Hough Referring Provider [phone] Zoey PEDIATRIC PATHOLOGIST-C, [place] Primary Care Provider Zoey PEDIATRIC PATHOLOGIST-C, Diego Referring Provider Kenneth ALFARO, Dr. Castanon Attending Provider [phone] Kina Cooper MD Referring Provider ZOEY, GRANT Primary Care Unavailable JEROME BUENROSTRO Referring Unavailable ZOEY, [facility] Primary Care Unavailable JEROME BUENROSTRO Referring Unavailable WESLEY DELGADO Attending Unavailable AJ CLEMENT Referring Unavailable FLY WEN Referring Unavailable ZOEY, [facility] Primary Care Unavailable ZOEY, [facility] Primary Care Unavailable JEROME BUENROSTRO Referring Unavailable ZOEY, [facility] Primary Care Unavailable JEROME BUENROSTRO Referring Unavailable JEROME BUENROSTRO Referring Unavailable WESLEY DELGADO Attending Unavailable ZOEY, [facility] Primary Care Unavailable JEROME BUENROSTRO Referring Unavailable WESLEY DELGADO Attending Unavailable ZOEY, GRANT Primary Care Unavailable ZOEY, [facility] Primary Care Unavailable DELIA DUKE Referring Unavailable ZOEY, GRANT Primary Care Unavailable ZOEY, GRANT Primary Care Unavailable JEROME BUENROSTRO Attending Unavailable AJ CLEMENT Referring Unavailable ZOEY, [facility] Primary Care Unavailable JEROME BUENROSTRO Attending Unavailable ZOEY, [facility] Primary Care Unavailable ZOEY, [facility] Primary Care Unavailable JEROME BUENROSTRO Attending Unavailable ZOEY, [facility] Care Unavailable LOULOU LAU Referring Unavailable ZOEY, [facility] Primary Care Unavailable JEROME BUENROSTRO Referring Unavailable ZOEY, [facility] Primary Care Unavailable JEROME BUENROSTRO Referring Unavailable WESLEY DELGADO Attending Unavailable Roof PEDIATRIC PATHOLOGIST-C, Ravi Schafer Attending Provider [phone] Reginald PEDIATRIC PATHOLOGIST-C, Ravi Schafer Referring Provider [phone] Dara Barnes Attending Provider [phone] Dara Barnes Referring Provider [phone] Corbin ALFARO, Dr. Arroyo Attending Provider [phone] Reginald PEDIATRIC PATHOLOGIST, Ravi Schafer Attending Unavailable Zoey PEDIATRIC PATHOLOGIST, Diego Referring Unavaila ble Zoey PEDIATRIC PATHOLOGIST, [facility] Unavaila ble Zoey PEDIATRIC PATHOLOGIST, [facility] Care Unavaila ble Zoey PEDIATRIC PATHOLOGIST, [place] Referring Unavaila Dara Reynoso Attending Unavail able Cruz Alaniz Attending Unavailable Zoey PEDIATRIC PATHOLOGIST, [facility] Unavaila Dara Reynoso Referring Unavail able KennethKina shine Attending Unavailable Zoey PEDIATRIC PATHOLOGIST, [facility] Unavaila ble KennethKina Attending Unavailable Zoey PEDIATRIC PATHOLOGIST, [place] Referring Unavaila ble Zoey PEDIATRIC PATHOLOGIST, [facility] Unavaila ble KennethKina shine Referring Unavailable KennethKina Attending Unavailable Zoey PEDIATRIC PATHOLOGIST, [facility] Unavaila ble Zoey PEDIATRIC PATHOLOGIST, [facility] Unavaila Quinton Heller Attending Unavailable Roof PEDIATRIC PATHOLOGIST, Ravi Schafer Referring Unavailable Roof PEDIATRIC PATHOLOGIST, Ravi Schafer Attending Unavailable Zoey PEDIATRIC PATHOLOGIST, [facility] Unavaila ble Zoey PEDIATRIC PATHOLOGIST, [facility] Unavaila Dara Reynoso Referring Unavail able Dara Barnes Attending Unavail able Roof PEDIATRIC PATHOLOGIST, Ravi Schafer Referring Unavailable Roof PEDIATRIC PATHOLOGIST, Ravi Schafer Attending Unavailable Zoey PEDIATRIC PATHOLOGIST, [facility] Unavaila ble Allergies Allergy Classification Reported Allergen(s) Allergy Type Date of Onset Reaction(s) Facility (20 sources) oxyCODONE; Translations: [OXYCODONE] Drug Allergy 8 Unknown [facility] (20 sources) pregabalin; Translations: [PREGABALIN] Drug Allergy 6 Unknown [facility] (2 sources) nefazodone Drug Allergy 3 suicidal thoughts [facility] (20 sources) nefazodone; Translations: [NEFAZODONE] Drug Allergy 9 Other: See Comments [facility] (8 sources) Lisinopril Drug Allergy 3 dry cough [facility] (3 sources) bee venom protein (honey bee) Allergy to substance 5 Itching [facility] (1 source) Lisinopril Drug Allergy 5 [facility] (1 source) bee venom protein (honey bee) Drug allergy (disorder) 5 [facility] Medications Current Medications Medication Drug Class(es) Dates Sig (Normalized) Sig (Original) amoxicillin 875 mg / clavulanate 125 mg oral tablet (13 sources) Penicillin-class Antibacterial Start: 08-05-2023 End: 08-15-2023 take 1 tablet by mouth twice daily amoxicillin-clav ulanate potassium (AUGMENTIN) 875-125 mg per tablet Take 1 tablet by mouth two times a day for 10 days. 20 tablet 0 08/05/2023 08/15/2023 Active Start: 02-03-2022 amoxicillin-cl avulanic acid (AUGMENTIN) 875-125 mg per tablet Start: 02-03-2022 End: 10-26-2022 Amoxicillin-Pot Clavulanate 875-125 mg tablet Discontinued 1 {tbl} PO TWICE A DAY February 03, 2022 12:00am October 26, 2022 1:40pm Start: 02-03-2022 End: 10-26-2022 take 1 tablet by mouth twice daily Amoxicillin-Pot Clavulanate Discontinued 1 TABLET PO TWICE A DAY February 02, 2022 11:00pm October 26, 2022 12:40pm Comment on above: Take 1 tablet by carly th two times a day for 10 days. apixaban 5 mg oral tablet (3 sources) Factor Xa Inhibitor Start: 03-05-2025 take 1 tablet by mouth twice daily Apixaban (Eliquis) 5 mg tablet Active 5 mg PO TWICE A DAY 60 March 05, 2025 12:00am Start: 02-20-2025 End: 03-05-2025 take 1 tablet by mouth once Apixaban (Eliquis Dvt-Pe T reat 30d Start) 5 mg (74 tabs) tablets,dose pack Discontinued 0 PO per package directions 74 February 20, 2025 12:00am March 05, 2025 2:27pm PO PER PKG DIR ascorbic acid 1000 mg oral tablet (20 sources) Vitamin C Start: 05-18-2023 take 2 g by mouth once daily Ascorbic Acid (Vitamin C) 1,000 mg tablet Active 2 g PO DAILY May 18, 2023 12:00am Start: 05-18-2023 take 2 g by mouth once daily A scorbic Acid (Vitamin C) Active 2 GM PO DAILY May 17, 2023 11:00pm Start: 05-18-2023 take 2 g by mouth once daily A scorbic Acid (Vitamin C) Active 2 GM PO DAILY May 18, 2023 12:00am take 1 tablet by mouth once arleen y ascorbic acid, vitamin C, (VITAMIN C) 500 mg tablet Take 500 mg by mouth once daily. Active biotin 2.5 mg oral capsule (9 sources) Start: 05-18-2023 take 1 capsule by mouth once daily Biotin 2,500 mcg capsule Active 2500 ug PO DAILY May 18, 2023 12:00am cholecalciferol 0.025 mg oral capsule (20 sources) Vitamin D Start: 05-18-2023 take 1 capsule by mouth once daily Cholecalciferol (Vitamin D3) 25 mcg (1,000 unit) capsule Active 25 ug PO DAILY May 18, 2023 12:00am take 1 capsule by mouth once duglas ly Cholecalciferol, Vitamin D3, (VITAMIN D-3) 50 mcg (2,000 unit) cap Take 1 capsule by mouth once daily. Active cyclobenzaprine hydrochloride 10 mg oral tablet (3 sources) Muscle Relaxant Start: 01-08-2025 take 1 tablet by mouth three times daily as needed for muscle spasms cyclobenzaprine (FLEXERIL) 10 mg tablet Indications: Pain of left calf Take 1 tablet by mouth three times a day as needed for muscle spasm for up to 12 doses. 12 tablet 01/08/2025 Active diazePAM 5 mg oral tablet (20 sources) Benzodiazepine Start: 05-12-2023 take 1 tablet by mouth twice daily as needed for anxiety Diazepam 5 mg tablet Active 5 mg PO TWICE A DAY as needed for anxiety May 12, 2023 12:00am Start: 07-04-2018 End: 04-18-2023 take 2.5-5 mg by mouth at bedtime Diazepam 5 MG tablet Discontinued 2.5 - 5 mg PO AT BEDTIME July 04, 2018 12:00am April 18, 2023 1:39pm Comment on above: TAKE 1 TABLET BY CARLY TWICE A DAY NEEDED FOR ANXIETY FOR 30 DAYS doxycycline hyclate 100 mg oral tablet (10 sources) Tetracycline-clas s Drug Start: End: take 1 tablet by mouth twice daily doxycycline (VIBRA-TABS) 100 mg tablet Indications: Rhinosinusitis Take 1 tablet by mouth two times a day for 7 days. 14 tablet 10/10/2024 10/17/2024 Active Start: 12-18-2023 End: 12-25-2023 take 1 tablet by mouth twice daily doxycycline (VIBRA-TABS) 100 mg tablet Take 1 tablet by mouth two times a day for 7 days. 14 tablet 0 12/18/2023 12/25/2023 Active Start: 08-15-2023 End: 11-16-2023 take 1 capsule by mouth twice daily Doxycycline Monohydrate 100 mg capsule Discontinued 100 mg PO TWICE A DAY August 15, 2023 1:00am November 16, 2023 10:22am Comment on above: Take 1 tablet by [facility] two times a day for 7 days. [id number] 0.3 ml EPINEPHrine 1 mg/ml auto-injector (4 sources) alpha-Adrenergic Agonist, beta-Adrenergic Agonist, Catecholamine Start: Epinephrine 0.3 mg/0.3 mL auto-injector Active 0.3 mg IM Q4H as needed for anaphylaxis April 07, 2024 12:00am hydrocortisone 25 mg/ml topical cream (1 source) Corticosteroid Start: End: hydrocortisone 2.5 % cream Apply 1 application to affected area two times a day for 7 days. Location: Left armpit 3.5 g 0 08/05/2023 08/12/2023 Active Comment on above: Apply 1 application to affected area two times a day for 7 days. Location: Left armpit meloxicam 15 mg oral tablet (20 sources) Nonsteroidal Anti-inflammatory Drug Start: 024 End: 025 take 1 tablet by mouth once daily meloxicam (MOBIC) 15 mg tablet Take 1 tablet by mouth once daily. 30 tablet 3 10/05/2024 Active Start: 07-18-2024 End: 09-11-2024 take 1 tablet by mouth once daily meloxicam (MOBIC) 15 mg tablet Take 1 tablet by mouth once daily. 30 tablet 08/14/2024 09/11/2024 Discontinued methylPREDNISolone (2 sources) Corticosteroid Start: 07-02-2024 End: 07-08-2024 methylPREDNISolone (MEDROL, DONTE,) 4 mg Dose-Pack Indications: Left shoulder pain, unspecified chronicity Follow dosing instructions, take with food. 21 tablet 07/02/2024 07/08/2024 Active Start: 03-26-2024 End: 04-01-2024 methylPREDNISolone (MEDROL, DONTE,) 4 mg Dose-Pack Indications: Pain Follow dosing instructions, take with food. 21 tablet 0 03/26/2024 04/01/2024 Active nitrofurantoin, macrocrystals 25 mg / nitrofurantoin, monohydrate 75 mg oral capsule (20 sources) Nitrofuran Antibacterial Start: 07-12-2024 End: 07-17-2024 take 1 capsule by mouth twice daily nitrofurantoin monohydrate and macrocrystal (MACROBID) 100 mg capsule Take 1 capsule by mouth two times a day for 5 days. 10 capsule 07/12/2024 07/17/2024 Active Start: 01-01-2023 End: 01-03-2023 take 1 capsule by mouth every twelve hours at mealtime Nitrofurantoin Monohyd/M-Cryst (Macrobid) 100 mg capsule Discontinued 100 mg PO Q12H 14 7 January 01, 2023 12:00am January 07, 2023 12:00am January 03, 2023 9:25am must administer with a meal/food Start: 01-25-2022 take 1 capsule by mo [facility] twice daily nitrofurantoin monohydrate and macrocrystal (MACROBID) 100 mg capsule TAKE 1 CAPSULE BY MOUTH TWICE A DAY FOR 5 DAYS 0 01/25/2022 Active Start: 02-12-2019 End: 05-03-2020 take 1 capsule by mouth twice daily at mealtime Nitrofurantoin Monohyd/M-Cryst 100 mg capsule Discontinued 100 mg PO TWICE A DAY February 12, 2019 12:00am May 03, 2020 1:19pm must administer with a meal/food Comment on above: TAKE 1 CAPSULE BY MO UTH TWICE A DAY FOR 5 DAYS nystatin 100 unt/mg / triamcinolone acetonide 0.001 mg/mg topical ointment (20 sources) Polyene Antifungal, Corticosteroid Start: nystatin-triamcinolon e (MYCOLOG) ointment Apply sparingly to perineum twice daily for irritation/infection. 30 g 07/09/2024 Active pantoprazole 20 mg delayed release oral tablet (20 sources) Proton Pump Inhibitor Start: 024 End: 025 take 1 tablet by mouth once daily Pantoprazole (Protonix) 20 mg tablet,delayed release (DR/EC) Active 20 mg PO DAILY January 28, 2025 12:48pm spironolactone 25 mg oral tablet (20 sources) Aldosterone Antagonist Start: 023 spironolactone (ALDACTONE) 25 mg tablet 08/30/2023 Active Start: 06-22-2023 End: 05-14-2024 Spironolactone 25 mg tablet Active 12.5 mg PO DAILY May 14, 2024 2:34pm Start: 06-22-2023 take 12.5 mg by mout h once daily Spironolactone Active 12.5 MG PO DAILY June 21, 2023 11:00pm Completed/Discontinued Medications Medication Drug Class(es) Dates Sig (Normalized) Sig (Original) acetaminophen 325 mg / HYDROcodone bitartrate 5 mg oral tablet (20 sources) Opioid Agonist Start: 05-25-2021 HYDROcodone-acetam inophen (NORCO) 5-325 mg per tablet Take by mouth. 0 05/25/2021 Active Start: 2018 End: 04-18-2023 Hydrocodone-Acetaminophen (N orco) 5-325 mg tablet Discontinued 1 {tbl} PO 4 TIMES DAILY 2018 12:00am April 18, 2023 1:38pm Start: 12-09-2013 End: 12-11-2013 Hydrocodone-Acetaminophen (V icodin 5-300 Mg Tablet) 1 EACH tablet Discontinued 1 {tbl} PO EVERY 4 HOURS NEEDED as needed for Pain December 09, 2013 1:00am December 11, 2013 11:26am Comment on above: Take by mouth. amitriptyline hydrochloride 25 mg oral tablet (1 source) Tricyclic Antidepressant Start: 07-07-20 21 amitriptyline (ELAVIL) 25 mg tablet Take by mouth. 0 07/07/2021 Active Comment on above: Take by mouth. amLODIPine 5 mg oral tablet (20 sources) Dihydropyridine Calcium Channel Thor Start: 09-20-20 End: 11-13-19 take 1 tablet by mouth once daily Amlodipine 5 mg tablet Discontinued 5 mg PO DAILY April 02, 2024 8:07am November 13, 2024 8:57am Start: 08-15-2023 End: 09-20-2023 take 1 tablet by mouth once daily Amlodipine 10 mg tablet Discontinued 10 mg PO DAILY August 15, 2023 1:00am September 20, 2023 6:23pm Start: 07-04-2023 End: 08-15-2023 take 1 tablet by mouth once daily Amlodipine (Norvasc) 2.5 mg tablet Discontinued 2.5 mg PO DAILY July 04, 2023 12:00am August 15, 2023 2:29pm amoxicillin 500 mg oral capsule (20 sources) Penicillin-class Antibacterial Start: 02-03-2022 End: 02-03-2022 take 2 capsules by mouth twice daily Amoxicillin 500 mg capsule Discontinued 1000 mg PO TWICE A DAY 22 07February 03, 2022 12:00am February 12, 2022 12:00am February 03, 2022 3:06pm Start: 02-03-2022 End: 02-03-2022 take 1000 mg by mouth twice daily Amoxicillin Discontinued 1000 MG PO TWICE A DAY 22 07February 02, 2022 11:00pm February 03, 2022 2:06pm Start: 06-21-2019 End: 07-01-2019 take 2 capsules by mouth twice daily Amoxicillin 500 mg capsule Discontinued 1000 mg PO TWICE A DAY 40 June 21, 2019 12:00am June 30, 2019 12:00am July 01, 2019 12:08am Start: 06-21-2019 End: 07-01-2019 take 1000 mg by mouth twice daily Amoxicillin Discontinued 1000 MG PO TWICE A DAY 40 June 20, 2019 11:00pm June 30, 2019 11:08pm amphetamine aspartate 5 mg / amphetamine sulfate 5 mg / dextroamphetamine saccharate 5 mg / dextroamphetamine sulfate 5 mg oral tablet (11 sources) Central Nervous System Stimulant Start: 07-04-2018 End: 03-28-2021 take 1 tablet by mouth twice daily Dextroamphetamine-Amphetamine 20 MG tablet Discontinued 20 mg PO TWICE A DAY July 04, 2018 12:00am March 28, 2021 12:49pm ampicillin 500 mg oral capsule (11 sources) Penicillin-clas s Antibacterial Start: 01-03-2023 End: 04-18-2023 take 1 capsule by mouth three times daily Ampicillin 500 mg capsule Discontinued 500 mg PO THREE TIMES A DAY January 03, 2023 12:00am April 18, 2023 1:39pm azithromycin 250 mg oral tablet (11 sources) Macrolide Antimicrobial Start: 10-26-2022 End: 12-30-2022 take 2-5 tablets by mouth once daily Azithromycin 250 mg tablet Discontinued 0 PO .COMPLEX October 26, 2022 1:00am December 30, 2022 5:19pm take 500 mg today (day 1), then 250 mg for 4 days (days 2-5) PO benzonatate 100 mg oral capsule (16 sources) Non-narcotic Antitussive Start: 12-18-2023 End: 07-02-2024 take 1 capsule by mouth every eight hours as needed benzonatate (TESSALON PERLES) 100 mg capsule Take 1 capsule by mouth three times a day as needed. 12 capsule 12/18/2023 07/02/2024 Discontinued Start: 02-03-2022 End: 10-26-2022 take 1 capsule by mouth three times daily as needed for cough Benzonatate 200 mg capsule Discontinued 200 mg PO THREE TIMES A DAY as needed for cough February 03, 2022 12:00am October 26, 2022 1:40pm Comment on above: Take 1 capsule by [facility] three times a day as needed. betamethasone 3 mg/ml / betamethasone acetate 3 mg/ml injectable suspension (4 sources) Corticosteroid Start: 11-20-2024 End: 11-20-2024 betamethasone acetate-betamethasone sodium phosphate 6 mg injection (CELESTONE) Start: 11-20-2024 End: 11-20-2024 6 mg, Injection - FOR ORTHO USE ONLY, ONCE, 1 dose, Starting on Tue11/20/24 at 0923, Until Tue11/20/24 at 0923 Start: 07-18-2024 End: 07-18-2024 betamethasone acetate-betame thasone sodium phosphate 6 mg injection (CELESTONE) Start: 07-18-2024 End: 07-18-2024 6 mg, Injection - FOR ORTHO USE ONLY, ONCE, 1 dose, Starting on Tue07/18/24 at 1609, Until Tue07/18/24 at 1609 30 ml bupivacaine hydrochloride 5 mg/ml injection (4 sources) Amide Local Anesthetic Start: 11-20-2024 End: 11-20-2024 BUPivacaine (PF) 0.5 % (5 mg/mL) 4 mL injection Start: 11-20-2024 End: 11-20-2024 4 mL, Injection - FOR ORTHO USE ONLY, ONCE, 1 dose, Starting on Tue11/20/24 at 0923, Until Tue11/20/24 at 0923 Start: 07-18-2024 End: 07-18-2024 BUPivacaine (PF) 0.5 % (5 mg /mL) 4 mL injection Start: 07-18-2024 End: 07-18-2024 4 mL, Injection - FOR ORTHO USE ONLY, ONCE, 1 dose, Starting on Tue07/18/24 at 1609, Until Tue07/18/24 at 1609 cefdinir 300 mg oral capsule (20 sources) Cephalosporin Antibacterial Start: 04-18-2023 End: 04-28-2023 take 1 capsule by mouth twice daily Cefdinir 300 mg capsule Discontinued 300 mg PO TWICE A DAY 22 07April 18, 2023 12:00am April 27, 2023 12:00am April 28, 2023 12:04am Start: 07-07-2018 End: 09-05-2018 take 1 capsule by mouth every twelve hours Cefdinir 300 MG capsule Discontinued 300 mg PO Q12H July 07, 2018 12:00am September 05, 2018 9:58am next dose 07/07/2018 evening. cephalexin 500 mg oral capsule (12 sources) Cephalosporin Antibacterial Start: 04-09-2022 cephALEXin (KEFLEX) 500 mg capsule Start: 05-03-2020 End: 05-13-2020 take 1 capsule by mouth twice daily Cephalexin (Keflex) 500 mg capsule Discontinued 500 mg PO TWICE A DAY 22 07May 03, 2020 12:00am May 12, 2020 12:00am May 13, 2020 12:02am cetirizine hydrochloride 10 mg oral capsule (20 sources) Histamine-1 Receptor Antagonist Start: 03-28-2021 End: 07-02-2024 take 1 capsule by mouth once daily Cetirizine (Zyrtec) 10 mg capsule Discontinued 10 mg PO DAILY March 28, 2021 12:00am April 18, 2023 1:39pm Comment on above: Take by mouth. chlorzoxazone 500 mg oral tablet (20 sources) Muscle Relaxant Start: 09-10-2021 End: 07-02-2024 chlorzoxazone (PARAFON FORTE DSC) 500 mg tablet Take by mouth. 09/10/2021 07/02/2024 Discontinued Comment on above: Take by mouth. dextromethorphan hydrobromide 3 mg/ml / guaiFENesin 40 mg/ml oral solution (11 sources) Uncompetitive P-efmmsk-Q-asparta te Receptor Antagonist, Sigma-1 Agonist Start: 10-26-2022 End: 12-30-2022 take 1 mL by mouth every six hours as needed for cough Dextromethorphan-G uaifenesin 15-200 mg/5 mL liquid Discontinued 5 mL PO EVERY 6 HOURS as needed for cough October 26, 2022 1:00am December 30, 2022 5:19pm Start: 10-26-2022 End: 12-30-2022 take 1 mL by mouth every six hours Dextromethorphan-Guaifenesin Discontinue d 5 ML PO EVERY 6 HOURS October 26, 2022 12:00am December 30, 2022 4:19pm docusate sodium 100 mg oral capsule (20 sources) Start: 11-14-2019 End: 09-30-2024 docusate sodium (DULCOLAX STOOL SOFTENER, DSS,) 100 mg capsule Take by mouth. 11/14/2019 07/02/2024 Discontinued Comment on above: Take by mouth. empagliflozin 10 mg oral tablet (20 sources) Sodium-Glucose Cotransporter 2 Inhibitor Start: 08-15-2023 End: 01-22-2025 take 1 tablet by mouth once daily Empagliflozin (Jardiance) 10 mg tablet Discontinued 10 mg PO DAILY February 28, 2024 12:46pm January 22, 2025 8:33am 72 hr fentaNYL 0.025 mg/hr transdermal system (20 sources) Opioid Agonist Start: 05-12-2023 End: 05-18-2023 Fentanyl 25 mcg/hr patch 72 hour Discontinued 1 NMA TD Q72H May 12, 2023 12:00am May 18, 2023 9:35am Start: 05-12-2023 End: 05-18-2023 Fentanyl Discontinued 1 PATC H TD Q72H May 11, 2023 11:00pm May 18, 2023 8:35am Start: 01-13-2023 End: 07-02-2024 fentaNYL (DURAGESIC) 12 mcg/ hr pt72 Indications: Chronic pain syndrome Apply 1 Patch as directed every 72 hours for 30 days. Change after 4 days for first patch and then continue to increase by one day till patches are gone. 10 Patch 01/13/2023 07/02/2024 Discontinued Start: 12-11-2022 End: 01-13-2023 apply 1 dose transdermal route every hour fentaNYL (DURAGESIC) 25 mcg/hr Indications: Chronic pain syndrome Apply 1 Patch as directed every 72 hours for 30 days. Do not start before December 11, 2022. 10 Patch 0 12/11/2022 01/13/2023 Discontinued Start: 11-11-2022 End: 12-11-2022 fentaNYL (DURAGESIC) 25 mcg/ hr Indications: Chronic pain syndrome Apply 1 Patch as directed every 72 hours for 30 days. 10 Patch 0 11/11/2022 12/08/2022 Discontinued Start: 07-14-2022 End: 08-13-2022 fentaNYL (DURAGESIC) 25 mcg/ hr Indications: Chronic pain syndrome Apply 1 Patch as directed every 72 hours for 30 days. 10 Patch 0 07/14/2022 08/11/2022 Discontinued Start: 06-12-2022 End: 11-11-2022 apply 1 dose transdermal route every hour fentaNYL (DURAGESIC) 25 mcg/hr Indications: Chronic pain syndrome Apply 1 Patch as directed every 72 hours for 30 days. Do not start before October 12, 2022. 10 Patch 0 10/12/2022 11/11/2022 Discontinued Start: 04-12-2022 End: 06-12-2022 fentaNYL (DURAGESIC) 25 mcg/ hr Indications: Chronic pain syndrome Apply 1 Patch as directed every 72 hours for 30 days. 10 Patch 0 05/13/2022 06/09/2022 Discontinued Start: 03-13-2022 End: 04-09-2022 fentaNYL (DURAGESIC) 25 mcg/ hr Apply 1 Patch as directed every 72 hours. 0 03/13/2022 04/09/2022 Discontinued Start: 05-16-2017 End: 04-18-2023 Fentanyl 25 MCG patch Discon tinued 25 ug TRANSDERM. Q72H May 16, 2017 12:00am April 18, 2023 1:39pm Comment on above: Apply 1 Patch as dir ected every 72 hours for 30 days. Apply 1 Patch as dir ected every 72 hours. Apply 1 Patch as dir ected every 72 hours for 30 days. Do not start before June 12, 2022. Apply 1 Patch as dir ected every 72 hours for 30 days. Do not start before July 13, 2022. Apply 1 Patch as dir ected every 72 hours for 30 days. Do not start before August 13, 2022. Apply 1 Patch as dir ected every 72 hours for 30 days. Do not start before September 12, 2022. Apply 1 Patch as dir ected every 72 hours for 30 days. Do not start before October 12, 2022. Apply 1 Patch as dir ected every 72 hours for 30 days. Do not start before December 11, 2022. Apply 1 Patch as dir ected every 72 hours for 30 days. Change after 4 days for first patch and then continue to increase by one day till patches are gone. ferrous sulfate 325 mg oral tablet (20 sources) Start : 07-07 End: 07-02 take 1 tablet by mouth every other day Ferrous Sulfate 325 mg (65 mg iron) tablet Discontinued 325 mg PO every other day May 12, 2023 12:00am May 18, 2023 9:35am Comment on above: Take by mouth. fluticasone propionate 0.05 mg/actuat metered dose nasal spray (6 sources)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 the patient has dense breast tissue. Interpreting Radiologist: Jamie Arevalo M.D. Electronically signed on: 07/15/2024 Die Maker Stamping: KRISTIN Transcribe Date/Time: Jul 12 2024 1:20P Dictated by: JAMIE AREVALO MD This examination was interpreted and the report reviewed and electronically signed by: JAMIE AREVALO MD on Jul 15 2024 1:52AM EST [id number] Normal [facility] Bacteria Ur Culton 4 Bacteria identified Cx Nom (U) CULTURE, URINE: Mixed microbiota, including predominantly: ORGANISM ID: 1 10,000 -<50,000 CFU/ml Escherichia coli ORGANISM ID: 1 (ESCHERICHIA COLI) -- ANTIBIOTIC INTERPRETATION SADIE STATUS REFERENCE RANGE -- Ampicillin S 4 F Susceptible <=8 , Intermediate >8 , Resistant >16 Cefazolin S <=4 F Susceptible 0-16 , Intermediate <0 or >16 , Resistant >16 For uncomplicated urinary tract infections, cefazolin results can be used to predict susceptibility or resistance to cephalexin. Ceftriaxone S <=1 F Susceptible <=1 , Intermediate >1 , Resistant >=4 Cefepime S <=1 F Susceptible <=2 , Susceptible-Dose Dependent >2 , Resistant >=16 Ertapenem S <=0.5 F Susceptible <=0.5 , Intermediate >.5 , Resistant >1 Meropenem S <=0.25 F Susceptible <=1 , Intermediate >1 , Resistant >2 Ampicillin/Sulbact S <=2 F Susceptible <=8 , Intermediate >8 , Resistant >16 Piperacillin/Tazobac S <=4 F Susceptible <16 , Susceptible-Dose Dependent >=16 , Resistant >=32 Gentamicin S <=1 F Susceptible <=2 , Intermediate >2 , Resistant >=8 Tobramycin S <=1 F Susceptible <4 , Intermediate >=4 , Resistant >=8 Trimeth sulfameth S <=20 F Susceptible <=40 , Resistant >40 Ciprofloxacin S <=0.25 F Susceptible <0.5 , Intermediate >=.5 , Resistant >=1 Nitrofurantoin S <=16 F Susceptible <=32 , Intermediate >32 , Resistant >64 Abnormal [facility] Comment on above: Performed By: #### 6 30-4 ####[facility] LABCLIA [id number] [address] OF [facility] CNOVon 07-09-2024 CNOV Office Visit (WSTR ) LAURA WEEKS ([id number]) 1960 F Date Time Provider Department 07/09/24 3:15 PM JIA KRUEGER [facility] During your visit today, we recorded the following information about you: Temperature Pulse Respiration Blood pressure 97.7 degrees 80/minute 18/minute 122/64 Weight 74.1 kg Jia Krueger PA 07/09/2024 3:39 PM Signed This note was created using Clioriter. Subjective Laura Weeks is a 64 year old female. HPI 64-year-old female presents for UTI symptoms. Patient has been having urinary frequency, burning, itching for the past 3 days. She denies any abdominal pain, back pain, fevers, vomiting. She states she has history of UTIs in the past and this feels similar. She has not had any vaginal discharge. She was last treated for UTI several months ago. She has not been on antibiotics recently. She states she has no history of diabetes. She has been taking Azo and d-mannose pills purd-ssn-bketkfu. PAST MEDICAL HISTORY Diagnosis Date ADD (attention deficit disorder) Cardiomyopathy (HCC) Depression Fibromyalgia GERD (gastroesophageal reflux disease) Hyperlipidemia Hypertension No past surgical history on file. ALLERGIES Oxycodone, Pregabalin, and Nefazodone MEDICATIONS empagliflozin (JARDIANCE) 10 mg tablet Take 10 mg by mouth daily with breakfast. metoprolol succinate ER (TOPROL XL) 100 mg Take 1 tablet by mouth every 12 hours. losartan (COZAAR) 100 mg tablet spironolactone (ALDACTONE) 25 mg tablet amLODIPine (NORVASC) 10 mg tablet KAPSPARGO SPRINKLE 25 mg CSpX TAKE 1 CAPSULE BY MOUTH EVERY DAY FOR 90 DAYS rosuvastatin (CRESTOR) 10 mg tablet TAKE 1 TABLET BY MOUTH EVERY DAY FOR 90 DAYS diazePAM (VALIUM) 5 mg tablet TAKE 1 TABLET BY MOUTH TWICE A DAY NEEDED FOR ANXIETY FOR 30 DAYS No family history on file. Social History Tobacco Use Smoking status: Former Types: Cigarettes Smokeless tobacco: Never Substance Use Topics Alcohol use: Not Currently Drug use: Never Review of Systems Constitutional: Negative for chills and fever. HENT: Negative for congestion, ear pain and sore throat. Respiratory: Negative for cough and shortness of breath. Cardiovascular: Negative for chest pain. Gastrointestinal: Negative for abdominal pain, diarrhea and vomiting. Genitourinary: Positive for dysuria, frequency and urgency. Negative for vaginal discharge and vaginal pain. Objective BP 122/64 Pulse 80 Temp 36.5 ?C (97.7 ?F) (Tympanic) Resp 18 Wt 74.1 kg (163 lb 5.8 oz) LMP (LMP Unknown) SpO2 96% BMI 26.37 kg/m? Physical Exam Vitals and nursing note reviewed. Constitutional: General: She is not in acute distress. Appearance: Normal appearance. She is not toxic-appearing. HENT: Nose: Nose normal. Mouth/Throat: Mouth: Mucous membranes are moist. Eyes: Conjunctiva/sclera: Conjunctivae normal. Cardiovascular: Rate and Rhythm: Normal rate and regular rhythm. Pulmonary: Effort: Pulmonary effort is normal. Breath sounds: Normal breath sounds. Abdominal: General: Abdomen is flat. Palpations: Abdomen is soft. Tenderness: There is no abdominal tenderness. There is no right CVA tenderness, left CVA tenderness, guarding or rebound. Skin: General: Skin is warm and dry. Neurological: Mental Status: She is alert. Assessment and Plan ASSESSMENT/PLAN: 1. Urinary frequency - ICD9: 788.41, ICD10: R35.0 acute - UA positive for 500 glucose-patient on Jardiance. - POC glucose 115 - Send urine for culture -Patient does report some vaginal itching, no discharge. Rx for mycolog ointment. - Patient education for prevention given - UA DIP, URINE (POC) - URINE CULTURE - GLUCOSE, BLOOD (POC) Diagnosis and treatment plan were discussed and questions were answered to the patient's satisfaction. Pt acknowledged understanding of concepts and follow up plan. Specific signs and symptoms that would indicate the need for higher level of care were discussed in detail warranting prompt ER evaluation. OZZIE Villarreal Allergies As of Date: 07/09/2024 Noted Allergy Reaction OXYCODONE 07/20/2018 16 - Unknown PREGABALIN 04/28/2016 16 - Unknown NEFAZODONE 06/21/2019 14 - Other: See Comments Date Reviewed: 07/09/2024 Reviewed by: Josselin Ambrose LPN - Fully Assessed Reason for Visit: Urinary Frequency [1086] Cmt: Frequency and burning x 3 days Primary Visit Diagnosis:Urinary frequency [R35.0] Order(s):UA DIP, URINE (POC) [5170875] Order #: [id number]. #:[id number] URINE CULTURE [SQURCUL] Order #: [id number]. #:[id number] GLUCOSE, BLOOD (POC) [[id number]] Order #: [id number]. #:[id number] nystatin-triamcinolone (MYCOLOG) ointmentApply sparingly to perineum twice daily for irritation/infection.D isp: 30 gRfl: 0 Prescriptions as of 07/09/2024 - (more content not included)... Normal [facility] GLUCOSE, BLOOD (POC)on 07-09 Glucose [Mass/Vol] 115 mg/dL Abnormal 74 - 99 mg/dL [facility] Comment on above: Location:[address], [place], [address] The Accu-Chek Inform II glucose meter has not been approved for testing on patients receiving intensive medical intervention or therapy and results from this point of care glucose test should not be used for patient management decisions in these cases. Inaccurate results may also occur from other interfering factors, such as N-acetylcysteine (blood concentrations of greater than 5mg/dL), galactose, extremes of hematocrit (<10 or >65), or high doses of ascorbic acid (vitamin C) greater than 3mg/dL. Consider alternate testing mechanisms (e.g. core lab, blood gas instrument) in the above situations. Interpretation and review of laboratory results Abnormal [facility] UA DIP, URINE (POC)on 2023 BILIRUBIN UA (POCT) Negative Negative Mariano [facility] CLARITY UA (POCT) Clear [facility] COLOR UA (POCT) Yellow [facility] GLUCOSE UA (POCT) 500 mg/dL Abnormal Negative [facility] Hemoglobin Ql (U) Negative Negative [facility] Interpretation and review of laboratory results Abnormal [facility] KETONE UA (POCT) Negative Negative mg/dL [facility] LEUKOCYTES UA (POCT) Negative Negative [facility] NITRITE UA (POCT) Negative Negative [facility] PH UA (POCT) 5.5 4.5 - 8.0 [facility] Protein Ql (U) Negative Negative mg/dL [facility] SPECIFIC GRAVITY UA (POCT) <=1.005 Abnormal 1.005 - 1.030 [facility] UROBILINOGEN UA (POCT) 0.2 Rachell l E.U./dL [facility] Location:[address], [place], [place], [id number] [place] [address] POINT OF CARE [facility] CNOVon 07-02-2024 [facility] LAURA [facility]EE[facility] ([id number]) 1960 F Date Time Provider Department 07/02/24 1:00 PM AJ CLEMENT [facility] During your visit today, we recorded the following information about you: Temperature Pulse Respiration Blood pressure 97.2 degrees 76/minute 20/minute 122/78 Weight 72.6 kg Aj Clement MD 07/02/2024 1:42 PM Signed Patient presents with: Pain: Left shoulder pain x 5 weeks HPI: Left shoulder pain: Duration: Started bothering her in the spring a few months ago, flared up worse the last 5 weeks without specific injury Location: left shoulder Character: aching and sharp Radiation: sometimes in the lateral upper arm and neck Aggravating: abduction (hurts to put on deodorant), unable to wash hair with left arm Relieving: Pain relievers: Motrin and Tylenol Associated: fibromyalgia Pertinent negatives: Denies numbness, weakness PAST MEDICAL HISTORY Diagnosis Date ADD (attention deficit disorder) Cardiomyopathy (HCC) Depression Fibromyalgia GERD (gastroesophageal reflux disease) Hyperlipidemia Hypertension MEDICATIONS: empagliflozin (JARDIANCE) 10 mg tablet Take 10 mg by mouth daily with breakfast. metoprolol succinate ER (TOPROL XL) 100 mg Take 1 tablet by mouth every 12 hours. losartan (COZAAR) 100 mg tablet spironolactone (ALDACTONE) 25 mg tablet amLODIPine (NORVASC) 10 mg tablet KAPSPARGO SPRINKLE 25 mg CSpX TAKE 1 CAPSULE BY MOUTH EVERY DAY FOR 90 DAYS rosuvastatin (CRESTOR) 10 mg tablet TAKE 1 TABLET BY MOUTH EVERY DAY FOR 90 DAYS diazePAM (VALIUM) 5 mg tablet TAKE 1 TABLET BY MOUTH TWICE A DAY NEEDED FOR ANXIETY FOR 30 DAYS ALLERGIES: ALLERGIES Allergen Reactions Oxycodone Unknown Pregabalin Unknown Nefazodone Other: See Comments VITALS: BP 122/78 Pulse 76 Temp 36.2 ?C (97.2 ?F) Resp 20 Wt 72.6 kg (160 lb 0.9 oz) LMP (LMP Unknown) SpO2 95% BMI 25.83 kg/m? PHYSICAL EXAM: GEN: pleasant, no acute distress, alert HEENT: PERRL, EOMI, MMM NECK: supple, no lymphadenopathy, no thyromegaly (remote incision for thyroidectomy over sternal notch) HEART: regular rate, regular rhythm, no murmurs LUNGS: clear to auscultation, no wheezes or crackles, no increased WOB EXT: no clubbing, no cyanosis, no edema. Normal strength in hand option trader, pincer grasp, and finger abduction. SHOULDER: left compared to right. No deformity or swelling. Palpation of clavicle tender, AC joint tender, glenohumeral joint tender. ROM: able to flex to 90 degrees with pain. Impingement test: Positive Left. Supraspinatus (empty can test): Positive Left. Cross arm test: Positive Right and Positive Left. ASSESSMENT/PLAN: 1. Arthritis of left glenohumeral joint - ICD9: 716.91, ICD10: M19.012 (primary diagnosis) 2. Left shoulder pain, unspecified chronicity - ICD9: 719.41, ICD10: M25.512 - XR SHOULDER GENERAL 3V OR MORE AP/TRUE AP/OTHER LEFT FINDINGS: 3 views of the left shoulder have been obtained. There is no acute fracture. There is advanced degenerative change with narrowing of the glenohumeral joint, slight remodeling of the left humeral head, and inferior medial humeral head osteophyte formation. Mild degenerative change of the AC joint. No gross soft tissue abnormality is seen. IMPRESSION: Degenerative changes with no acute process seen. Shoulder arthritis and possible superimposed rotator cuff tendonopathy. Requests - METHYLPREDNISOLONE 4 MG TABLETS IN A DOSE PACK which has been helpful for joint pain in the past. Advised to not take ibuprofen while taking steroid. Informed of risk for gastritis and risk of fluid retention. - CONSULT TO ORTHOPAEDICS Aj Clement MD Allergies As of Date: 07/02/2024 Noted Allergy Reaction OXYCODONE 07/20/2018 16 - Unknown PREGABALIN 04/28/2016 16 - Unknown NEFAZODONE 06/21/2019 14 - Other: See Comments Date Reviewed: 07/02/2024 Reviewed by: Genie Soria MA - Fully Assessed Reason for Visit: Pain [78] Cmt: Left shoulder pain x 5 weeks Primary Visit Diagnosis:Arthritis of left glenohumeral joint [M19.012] Other Visit Diagnosis:Left shoulder pain, unspecified chronicity [M25.512] Order(s):XR SHOULDER GENERAL 3V OR MORE AP/TRUE AP/OTHER LEFT [[id number]] Order #: [id number] FUTURE methylPREDNISolone (MEDROL, DONTE,) 4 mg Dose-PackFollow dosing instructions, take with food.Disp: 21 tabletRfl: 0 CONSULT TO ORTHOPAEDICS [8593] Order #: [id number]: 1 FUTURE Prescriptions as of 07/02/2024 - methylPREDNISolone (MEDROL, DONTE,) 4 mg Dose-Pack Follow dosing instructions, take with food. - empagliflozin (JARDIANCE) 10 mg tablet Take 10 mg by mouth daily with breakfast. - metoprolol succinate ER (TOPROL XL) 100 mg Take 1 tablet by mouth every 12 hours. - losartan (COZAAR) 100 mg tablet - spironolactone (ALDACTONE) 25 mg tablet - amLODIPine (NORVASC) 10 mg tablet - KAPSPARG (more content not included)... Normal [facility] XR SHLDR >/=3V AP/CONNER AP/OTH R LTon 07-02-2024 XR SHLDR >/=3V AP/CONNER AP/OTHR LT * * *Final Report* * * DATE OF EXAM: Jul 02 2024 1:23PM WOX 5252 - XR SHLDR >/=3V AP/CONNER AP/OTHR LT / PROCEDURE REASON: Left shoulder pain, unspecified chronicity * * * * Physician Interpretation * * * * History: Shoulder pain FINDINGS: 3 views of the left shoulder have been obtained. There is no acute fracture. There is advanced degenerative change with narrowing of the glenohumeral joint, slight remodeling of the left humeral head, and inferior medial humeral head osteophyte formation. Mild degenerative change of the AC joint. No gross soft tissue abnormality is seen. IMPRESSION: Degenerative changes with no acute process seen. Die Maker Stamping: PAWEL Transcribe Date/Time: Jul 02 2024 1:23P Dictated by : YAEL PELAEZ MD This examination was interpreted and the report reviewed and electronically signed by: YAEL PELAEZ MD on Jul 02 2024 1:24PM EST [id number] Normal [facility] XR Shoulder - left 3 Viewson 07-02-2024 IMPRESSION: Degenerative changes with no acute process seen. Die Maker Stamping: PAWEL Transcribe Date/Time: Jul 02 2024 1:23P Dictated by : YAEL PELAEZ MD This examination was interpreted and the report reviewed and electronically signed by: YAEL PELAEZ MD on Jul 02 2024 1:24PM EST DIVISION OF RADIOLOGY * * *Final Report* * * DATE OF EXAM: Jul 02 2024 1:23PM WOX 5252 - XR SHLDR >/=3V AP/CONNER AP/OTHR LT / PROCEDURE REASON: Left shoulder pain, unspecified chronicity * * * * Physician Interpretation * * * * History: Shoulder pain FINDINGS: 3 views of the left shoulder have been obtained. There is no acute fracture. There is advanced degenerative change with narrowing of the glenohumeral joint, slight remodeling of the left humeral head, and inferior medial humeral head osteophyte formation. Mild degenerative change of the AC joint. No gross soft tissue abnormality is seen. DIVISION OF RADIOLOGY Provider, Allison Mulligan [facility] - 07/02/2024 * * *Final Report* * * DATE OF EXAM: Jul 02 2024 1:23PM WOX 5252 - XR SHLDR >/=3V AP/CONNER AP/OTHR LT / PROCEDURE REASON: Left shoulder pain, unspecified chronicity * * * * Physician Interpretation * * * * History: Shoulder pain FINDINGS: 3 views of the left shoulder have been obtained. There is no acute fracture. There is advanced degenerative change with narrowing of the glenohumeral joint, slight remodeling of the left humeral head, and inferior medial humeral head osteophyte formation. Mild degenerative change of the AC joint. No gross soft tissue abnormality is seen. IMPRESSION IMPRESSION: Degenerative changes with no acute process seen. Die Maker Stamping: [facility] Transcribe Date/Time: Jul 02 2024 1:23P Dictated by : YAEL PELAEZ MD This examination was interpreted and the report reviewed and electronically signed by: YAEL PELAEZ MD on Jul 02 2024 1:24PM EST [facility] Radiology Study observation (narrative) Shannan yadav [facility] XR Shoulder - left 3 ViewsOr dered By: [facility] Provider on 07-02-2024 [facility] BNP,B-Type NATRIURETIC PEPTI Kris 05-18-2024 Natriuretic peptide B (Bld) [Mass/Vol] 17.6 pg/mL Normal 0-100 [facility] Comment on above: Performed By: #### L 500.2500, L503.6620 #### [facility] [address] [place], [id number] Basic Metabolic Profile (BMP )on 05-18-2024 BUN/CRE 14.4 RATIO Normal 10-20 [facility] Comment on above: Performed By: #### L 500.2500, L503.6620 #### [facility] [address] [place], [address] CA,Total 9.0 mg/dL Normal 8.5-10.1 [facility] Comment on above: Performed By: #### L 500.2500, L503.6620 #### [facility] [address] [place], [address] Chloride [Moles/Vol] 107 mmol/L Normal 98-107 [facility] Comment on above: Performed By: #### L 500.2500, L503.6620 #### [facility] [address] [place], [address] CO2 [Moles/Vol] 27.0 mmol/L Normal 21.0-32.0 [facility] Comment on above: Performed By: #### L 500.2500, L503.6620 #### [facility] [address] [place], [address] Creatinine [Mass/Vol] 1.18 mg/dL High 0.55-1.02 [facility] Comment on above: Result Comment: The validity of the calculated GFR GFRAA in patients over 70 years has not been determined. Clinical correlation is essential. Performed By: #### L 500.2500, L503.6620 #### [facility] [address] [place], [address] EST GFR - AA 59 mL/min Low >60 [facility] Comment on above: Result Comment: Afri can Spanish GFR Calc Performed By: #### L 500.2500, L503.6620 #### [facility] [address] [place], [address] GAP 5 Normal 5-15 [facility] Comment on above: Performed By: #### L 500.2500, L503.6620 #### [facility] [address] [place], [address] GFR/1.73 sq M.predicted among non-blacks MDRD (S/P/Bld) [Vol rate/Area] 49 mL/min/{1.73_m2} Low >60 [facility] Comment on above: Result Comment: Non- GFR Calc Performed By: #### L 500.2500, L503.6620 #### [facility] [address] [place], [address] Glucose [Mass/Vol] 108 mg/dL High 74-106 [facility] Comment on above: Result Comment: Fast ing Glucose result from 100 to 125 mg/dL suggests IMPAIRED HOMEOSTASIS per A.D.A. criteria. Performed By: #### L 500.2500, L503.6620 #### [facility] [address] [place], [address] Potassium [Moles/Vol] 3.8 mmol/L Normal 3.5-5.1 [facility] Comment on above: Performed By: #### L 500.2500, L503.6620 #### [facility] [address] [place], [address] Sodium [Moles/Vol] 139 mmol/L Normal 136-145 [facility] Comment on above: Performed By: #### L 500.2500, L503.6620 #### [facility] [address] [place], [address] Urea nitrogen [Mass/Vol] 17 mg/dL Normal 7-18 [facility] Comment on above: Performed By: #### L 500.2500, L503.6620 #### [facility] [address] [place], [address] Cardiology Visit Reporton Cardiology Visit Report [facility] [address] [place] [address] OFFICE VISIT Date of Service: 05/18/24 MR#: [id number] Acct: [id number] Name: LAURA WEEKS Rep #: [id number] : 1960 Provider: KELLY nelson Age/Sex: 63/F Location[place] [facility] Status: Signed [facility] History of Present Illness Details: The patient has past medical history significant for hypertension, dyslipidemia and fibromyalgia. She has had a pharmacological stress test done. It was negative for inducible ischemia. However gated images reported an LVEF of 43%. According to the patient, she has had coronary angiography performed about 10 to 12 years ago. She was told that she did not have any coronary artery disease. Echocardiogram in September 2023 showed an ejection fraction of 50% and borderline global hypokinesis of left ventricle. She denies chest, arm, jaw, or neck discomfort. She denies palpitations. She denies bilateral lower extremity edema. She denies claudication. She states shortness of breath with activity, shortness of breath at rest, orthopnea, or PND. She denies chronic cough. She denies significant, sudden weight gain. She denies lightheadedness, dizziness, near-syncope, or syncope. She denies blood in urine, blood in stool, or epistaxis. He denies fever with chills. She denies myalgia. She states fatigue. Her exercise level has remained stable. Intake Vital Signs 04/07/24 16:31 05/18/24 09:36 05/18/24 09:37 Height 5 ft 5 in 5 ft 5 in 5 ft 5 in Weight: 162 lb BMI 26.9 BP 127/83 H Blood Pressure Location Lt brachial Position Sitting Respiration 18 Pulse 69 Pulse Source Monitor Pulse Oximetry (%) 95 Intake Visit Reasons: 6 M FU Concrete Layer Required: No Is patient in pain?: No Allergies bee venom protein (honey bee) (bee sting) Allergy (Mild, Verified 05/18/24 09:37) Itching lisinopril Adverse Reaction (Intermediate, Verified 05/18/24 09:37) dry cough Have you fallen in the past year?: Yes Nurse's Note: no medication list, patient does not know names of medications [facility] Medical History Cellulitis of axilla, left Encounter for monitoring diuretic therapy Hypokalemia Acute bacterial conjunctivitis Cardiomyopathy Dyslipidemia Abnormal cardiovascular stress test Generalized anxiety disorder Osteoarthritis Iron deficiency anemia ADD (attention deficit disorder) Acute upper respiratory infection Acute bronchitis Acute bronchitis, unspecified Acute sinusitis, unspecified Conjunctivitis, both eyes Strain of right shoulder Allergic conjunctivitis Acute maxillary sinusitis, unspecified Gastroenteritis Hypotension Sepsis UTI (urinary tract infection) SU (acute kidney injury) Depressed Dysuria Impacted cerumen, left ear HISTORY OF BASIL CELL REMOVAL History of sepsis HISTORY OF LUMP REMOVAL FROM THROAT History of uterine fibroid History Collapsed Lungs HISTORY OF RUPTURE OF BLADDER History of rupture of uterus History of fracture of skull HISTORY OF HIP/PELVIS/SUPRA PUBIC INJURY HISTORY OF RIGHT TIB-FIB INJURY UNEXPLAINED BRUISES Fibromyalgia Knee pain Fatigue Heart disease History of cancer Arthritis Hypertension GERD (gastroesophageal reflux disease) HTN (hypertension) HLD (hyperlipidemia) Fibromyalgia Chronic pain syndrome Surgical History History of cataract surgery History of lumpectomy of left breast History of bladder repair surgery History of hysterectomy History of thyroidectomy Family History Father Hypertension Heart disease Myocardial infarction Mother Hypertension Sister Heart disease TIA (transient ischemic attack) Diabetes Grandfather Diabetes Grandmother Diabetes Grandmother Cancer Other Nephritis Social History household members: spouse housing: house Smoking Status: Former smoker alcohol intake: current alcohol intake frequency: holidays/special occasions only substance use type: does not use caffeine: Yes Type: carbonated beverages Number of servings: 3 ROS Const Const: Positive for fatigue; Negative for weakness, body ache, fever(s) or chills ENT ENT: Negative for dizziness or Nosebleed/epistaxis Cardio Chest Pain: No Palpitations: No Edema: None Muscle aches with walking: None Resp Respiratory: Positive for SOB with activity; Negative for SOB at rest, SOB orthopnea SOB lying down, Cough or paroxysmal nocturnal dyspnea GI GI: Negative nausea, vomiting blood/hematemesis, bright, red blood in stools or black,tarry stools : Negative for hematuria or frequent nighttime urinati (more content not included)... Normal [facility] Emergency Department Summary on 04-07-2024 Emergency Department Summary [facility] Medical Records Department [address] [place] [address] Emergency Department Summary 04/07/24 MR#: [id number] Acct: [id number] Name: LAURA WEEKS Rep #: [id number] : 1960 63 From: Quinton Dominguez MD PCP: KELLY Soni Status:REG ER Location: ED HPI History of Present Illness Chief Complaint: Allergic Reaction Informant: patient and spouse/S.O. Narrative Narrative: 63-year-old female was stung by a hornet on her left foot about 45 minutes ago. Shortly afterward she started itching in her hands and her tongue. She is now feeling like there is tightness in her throat although she can swallow without any difficulty and breathe without any difficulty. She denies any syncope or near syncope. She has never had an allergic reaction to bee stings in the past, but she states she does not think she is ever been stung by a large hornet in the past like she was today. She states her foot is sore from the sting, she already removed the stinger. She does not have asthma she does not have diabetes. [facility] Medical History Cellulitis of axilla, left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 End: 10-02-2024 ambulatory Wesleyshelby Delgado PT Work Phone: [facility] Comment on above: 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) Start: 09-11-2024 End: 09-14-2024 Refill Jeromeiman Buenrostro DO Work Phone: [facility] Comment on above: Refill Request Start: 09-10-2024 End: 09-10-2024 ambulatory Doragilmar Garciaba LEAN SPECIALIST Work Phone: [facility] Comment on above: 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) Start: 09-09-2024 End: 09-10-2024 Refill Jerome Buenrostro DO Work Phone: [facility] Comment on above: Refill Request Start: 09-07-2024 End: 09-10-2024 ambulatory Dora Garciaba LEAN SPECIALIST Work Phone: [facility] Comment on above: 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) Start: 09-04-2024 End: 09-04-2024 ambulatory Wesley Delgado PT Work Phone: [facility] Comment on above: 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) Start: 08-31-2024 End: 08-31-2024 ambulatory Dora Garciaba LEAN SPECIALIST Work Phone: [facility] Comment on above: 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) Start: 08-27-2024 End: 08-27-2024 ambulatory Wesleyshelby Delgado PT Work Phone: [facility] Comment on above: 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) Start: 08-21-2024 End: 08-21-2024 ambulatory Dora Garciaba LEAN SPECIALIST Work Phone: [facility] Comment on above: 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) Start: 08-14-2024 End: 08-14-2024 Refill Grant Greer CASH POSTING SPECIALIST Work Phone: [address] [place] [address] Comment on above: Refill Request Start: 08-11-2024 End: 08-13-2024 Refill Jerome Porter DO Work Phone: [facility] Comment on above: Refill Request Start: 08-07-2024 End: 08-07-2024 ambulatory Wesley Delgado PT Work Phone: [facility] Comment on above: 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) Start: 07-18-2024 End: 07-18-2024 ambulatory JEROME BUENROSTRO Facility:[facility] Start: 07-18-2024 End: 07-18-2024 Patient encounter procedure Jerome Buenrostro DO Work Phone: [facility] Comment on above: Arthritis of left gl enohumeral joint; Left shoulder pain, unspecified chronicity Start: 07-12-2024 End: 10-21-2024 Telephone encounter Jia HORNE Work Phone: [facility] Comment on above: Results Start: 07-12-2024 End: 07-12-2024 ambulatory DELIA DUKE Facility:[facility] Start: 07-12-2024 End: 07-12-2024 Subsequent hospital visit by physician Screen Nasreeno [facility] Start: 07-09-2024 End: 07-09-2024 ambulatory GRANT GREER Facility:[facility] Start: 07-09-2024 End: 07-09-2024 Patient encounter procedure Jia HORNE Work Phone: [facility] Comment on above: Urinary frequency (P rimary Dx) Start: 07-02-2024 End: 07-02-2024 Subsequent hospital visit by physician Xr [facility] Work Phone: Radiology Comment on above: Left shoulder pain, unspecified chronicity [M25.512] Start: 07-02-2024 End: 07-02-2024 ambulatory AJ CLEMENT Facility:[facility] Start: 07-02-2024 End: 07-02-2024 Office outpatient visit 25 minutes Aj Clemnet MD Work Phone: [facility] Comment on above: 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); Left shoulder pain, unspecified chronicity Start: 05-18-2024 End: 05-18-2024 ambulatory Ravi Montelongo PEDIATRIC PATHOLOGIST Facility[place] Start: 05-18-2024 End: 05-18-2024 ambulatory Ravi Montelongo PEDIATRIC PATHOLOGIST Facility:[facility] Start: 04-07-2024 End: 04-07-2024 Emergency department patient visit Diego Greer NP Facility:[facility] Start: 03-26-2024 End: 03-26-2024 Subsequent hospital visit by physician Xr [facility] Work Phone: Radiology Comment on above: Pain [R52] Start: 03-26-2024 End: 03-26-2024 ambulatory LOULOU LAU Facility:[facility] Start: 03-26-2024 End: 03-26-2024 Patient encounter procedure Loulou Lau APRN.CNP Work Phone: [facility] Comment on above: Pain (Primary Dx) Start: 12-18-2023 End: 12-18-2023 Patient encounter procedure Jia HORNE Work Phone: [facility] Comment on above: Sinobronchitis (Prim mickey Dx); Acute cough Start: 09-19-2023 End: 09-19-2023 Subsequent hospital visit by physician Xr [facility] Work Phone: Radiology Comment on above: Pain of finger of ri ght hand [M79.644] Start: 09-14-2023 Non-patient / Non-visit Dr. Larry Nunez Work Phone: [facility] Start: 09-14-2023 End: 09-14-[address] Gianluca Nunez Work Phone: [facility] Work Phone: Start: 09-14-2023 End: 09-14-[address] Gianluca Nunez Work Phone: [facility]-Cardiovascul [facility] Services Work Phone: Start: 09-02-2023 End: 10-02-[address] Gianluca Nunez Work Phone: [facility] Work Phone: Start: 09-02-2023 End: 10-02-[address] Gianluca Nunez Work Phone: [facility]-Cardiac Rehab Work Phone: Start: 09-02-[address] Amanuel Nunez Work Phone: [facility] Work Phone: Start: 08-31-2023 End: 09-01-[address] Gianluca Nunez Work Phone: [facility] Work Phone: Start: 08-31-2023 End: 09-01-[address] Gianluca Nunez Work Phone: [facility] Work Phone: Start: 08-22-[address] Amnauel Nunez Work Phone: [facility] Work Phone: Start: 08-19-2023 End: 08-19-[address] Gianluca Nunez Work Phone: [facility] Work Phone: Start: 08-19-2023 End: 08-19-[address] Gianluca Nunez Work Phone: [facility] Work Phone: Start: 08-15-2023 End: 08-15-[address] Gianluca Nunez Work Phone: [facility] Work Phone: Start: 08-15-2023 End: 08-15-[address] Gianluca Nunez Work Phone: [facility] Work Phone: Start: 08-05-2023 End: 08-05-2023 Patient encounter procedure Yohana Palmer ECG TECHNICIAN.CASH POSTING SPECIALIST Work Phone: [facility] Comment on above: Rash (Primary Dx); Sinus congestion; Nasal congestion Start: 06-29-2023 End: 06-29-[address] [facility]: Start: 06-13-2023 Non-patient / Non-visit Dr. Larry Nunez Work Phone: [facility] Start: 06-13-2023 End: 06-13-[address] Gianluca Nunez Work Phone: [facility]Cardiov[facility] Work Phone: Start: 06-03-2023 End: 06-03-[address] Gianluca Nunez Work Phone: [facility] Work Phone: Start: 05-18-2023 End: 05-18-[address] Gianluca Nunez Work Phone: [facility] Work Phone: Start: 05-18-2023 End: 05-18-[address] [facility] Start: 05-18-2023 End: 05-18-[address] Gianluca Nunez Work Phone: [facility] Work Phone: Start: 04-18-2023 End: 04-18-[address] Gianluca Nunez Work Phone: [facility] Work Phone: Start: 04-11-2023 Telephone encounter Greta love ECG TECHNICIAN.METAL MACHINIST Work Phone: [facility] Comment on above: Patient Question Start: 04-08-2023 Telephone encounter Greta love ECG TECHNICIAN.METAL MACHINIST Work Phone: [facility] Comment on above: Appointment Start: 03-25-2023 Non-patient / Non-visit Dr. Larry Nunez Work Phone: [facility] Start: 03-25-2023 End: 03-25-[address] Gianluca Nunez Work Phone: [facility] Work Phone: Start: 03-25-2023 End: 03-25-[address] Gianluca Nunez Work Phone: [facility]Cardiov[facility] Start: 03-07-2023 End: 03-07-[address] Gianluca Nunez Work Phone: [facility] Start: 02-05-2023 Refill Greta Tafoya ECG TECHNICIAN.METAL MACHINIST Work Phone: Pain Management Comment on above: Refill Request Start: 01-13-2023 End: 01-14-2023 ambulatory GRETA TAFOYA Facility:[id number] Start: 01-13-2023 End: 01-13-2023 Office outpatient visit 25 minutes Greta Tafoya ECG TECHNICIAN.METAL MACHINIST Work Phone: [facility] Comment on above: Fibromyalgia (Primar y Dx); Chronic pain syndrome; High risk medication use Start: 01-11-2023 Refill Greta Tafoya ECG TECHNICIAN.METAL MACHINIST Work Phone: Pain Management Comment on above: Refill Request Start: 12-31-2022 End: 12-31-[address] Gianluca Nunez Work Phone: [facility] Work Phone: Start: 12-31-2022 End: 12-31-[address] Gianluca Nunez Work Phone: [facility]-Laboratory, Specimen Start: 12-30-2022 End: 12-30-[address] Gianluca Nunez Work Phone: [facility] Start: 12-08-2022 Refill Greta Tunas ECG TECHNICIAN.METAL MACHINIST Work Phone: Pain Management Comment on above: Refill Request; Refi ll Request Start: 11-11-2022 End: 11-12-2022 ambulatory [facility] Facility:[id number] Start: 11-11-2022 End: 11-11-2022 Office outpatient visit 25 minutes Greta Tunas ECG TECHNICIAN.METAL MACHINIST Work Phone: Pain Management Comment on above: Generalized osteoart hritis (Primary Dx); Chronic pain syndrome; Fibromyalgia; High risk medication use Start: 11-08-2022 Refill Greta Michelet ECG TECHNICIAN.METAL MACHINIST Work Phone: Pain Management Comment on above: Refill Request Start: 10-26-2022 End: 10-26-[address] Gianluca Nunez Work Phone: [facility] Start: 10-08-2022 Refill Greta Tunas ECG TECHNICIAN.METAL MACHINIST Work Phone: Pain Management Comment on above: Refill Request Start: 09-14-2022 End: 09-15-2022 ambulatory [facility] Facility:[id number] Start: 09-14-2022 End: 09-14-2022 Office outpatient visit 25 minutes Greta Tunas ECG TECHNICIAN.METAL MACHINIST Work Phone: Pain Management Comment on above: Chronic pain disorde r (Primary Dx); Fibromyositis; Generalized osteoarthritis; High risk medication use; Chronic pain syndrome Start: 09-08-2022 Refill Greta Tafoya ECG TECHNICIAN.METAL MACHINIST Work Phone: Pain Management Comment on above: Refill Request Start: 08-11-2022 Refill Greta Tafoya ECG TECHNICIAN.METAL MACHINIST Work Phone: Pain Management Comment on above: Refill Request Start: 07-13-2022 Telephone encounter Kofi Fishman DO Work Phone: Pain Management Comment on above: Medication Problem Start: 07-08-2022 Refill Kofi Denney DO Work Phone: Pain Management Comment on above: Refill Request Start: 06-09-2022 Refill Greta Tafoya ECG TECHNICIAN.METAL MACHINIST Work Phone: Pain Management Comment on above: Refill Request Start: 05-21-2022 Refill Greta Tafoya ECG TECHNICIAN.METAL MACHINIST Work Phone: Pain Management Comment on above: Refill Request Start: 05-13-2022 End: 05-14-2022 ambulatory GRETAGilmar YUENMICHELET Facility:[id number] Start: 05-05-2022 Chart abstracting Delia younger PA-C Work Phone: Pain [facility] Start: 04-09-2022 Refill Greta Tafoya ECG TECHNICIAN.METAL MACHINIST Work Phone: Pain Management Comment on above: Refill Request Start: 03-10-2022 End: 03-10-2022 Subsequent hospital visit by physician Greta Tafoya APRN.METAL MACHINIST Work Phone: [facility] Comment on above: FOLLOW UP Start: 12-01-2021 End: 12-01-2021 Subsequent hospital visit by physician Greta Tafoya Work Phone: [facility] Comment on above: FOLLOW UP Start: 11-18-2021 End: 11-18-2021 Subsequent hospital visit by physician Kofi Fishman Work Phone: [facility] Comment on above: G89.4 Start: 09-28-2021 End: 09-28-2021 Subsequent hospital visit by physician Greta Tafoya Work Phone: [facility] Comment on above: FOLLOW UP Start: 04-26-2017 End: 04-27-2017 Ambulatory [facility] Facility:B Start: 04-25-2017 Ambulatory [facility] Facility :B Procedures Date Procedure Procedure Detail Performing Clinician Start: 01-12-2025 CT of chest without contrast Diego Greer PEDIATRIC PATHOLOGIST-C Work Phone: Start: 11-20-2024 Arthrocentesis aspir &/inj major jt/bursa w/o us Jerome Porter DO Work Phone: Start: 07-18-2024 Arthrocentesis aspir &/inj major jt/bursa w/o us Jerome Porter DO Work Phone: Start: 07-09-2024 Gluc bld gluc mntr d ev cleared fda spec home use Jia HORNE Work Phone: Start: 07-09-2024 Urnls dip stick/tabl et rgnt auto w/o microscopy Kelsey Hagan ECG TECHNICIAN.CASH POSTING SPECIALIST Work Phone: Start: 07-02-2024 Radex shoulder compl ete minimum 2 views Aj Clement MD Work Phone: Start: 03-26-2024 Radiologic exam knee complete 4/more views Loulou Lau ECG TECHNICIAN.CASH POSTING SPECIALIST Work Phone: Start: 09-19-2023 Radex hand minimum 3 views Kelsey Hagan ECG TECHNICIAN.CASH POSTING SPECIALIST Work Phone: Start: 03-25-2023 Cardiovascular stres s test using pharmacologic stress agent Dr. Gianluca Nunez Work Phone: Urine culture Dr. Gianluca charles Work Phone: Plan of Treatment Date Care Activity Detail Author Start: 07-12-2025 Screening for malign ant neoplasm of breast Mammogram Screening [facility] Start: 06-03-2025 Influenza vaccination Influenz a Vaccine (Season Ended) [facility] Start: 10-05-2024 End: 10-05-2024 Patient encounter procedure 10/05/2024 11:00 AM EST Office Visit [facility] [place] [address] [place] [address] Jerome Buenrostro V, DO [address] [facility] [place] [address] Follow up Family [facility] [place] Comment on above: Follow up Start: 10-03-2024 Advance Directive Discussion Advance Directive Discussion [facility] Start: 10-02-2024 End: 10-02-2024 ambulatory 10/02/2024 7:45 AM EST OT/PT/Speech Visit [facility] [address] [place] [address] Wesley Delgado, PT [address] [place] [address] shoulder pain [facility] Comment on above: shoulder pain Start: 09-21-2024 End: 09-21-2024 Patient encounter procedure 09/21/2024 11:00 AM EST [facility] [address] [place] [address] Jerome Buenrostro V, DO [address] [facility] [place] [address] Follow up [facility] [place] Comment on above: Follow up Start: 09-14-2024 End: 09-14-2024 ambulatory 09/14/2024 1:00 PM EST OT/PT/Speech Visit [facility] [address] [place] [address] Wesley Delgado, PT [address] [place] [address] Arthritis of left glenohumeral joint [M19.012] [facility] Comment on above: Arthritis of left gl enohumeral joint [M19.012] Start: 09-12-2024 End: 09-12-2024 ambulatory [facility] Comment on above: Arthritis of left gl enohumeral joint [M19.012] SHOULDER PAIN Start: 09-11-2024 End: 09-11-2024 ambulatory 09/11/2024 10:00 AM EST OT/PT/Speech Visit [facility] [address] [address] Wesley Delgado, PT [address] [place] [address] Arthritis of left glenohumeral joint [M19.012] [facility] Comment on above: Arthritis of left gl enohumeral joint [M19.012] Start: 09-10-2024 End: 09-10-2024 ambulatory 09/10/2024 2:15 PM EST OT/PT/Speech Visit [facility] [address] [place] [place] [address] Wesley Delgado, PT [address] [place] [address] Arthritis of left glenohumeral joint [M19.012] [facility] Comment on above: Arthritis of left gl enohumeral joint [M19.012] Start: 09-10-2024 End: 09-10-2024 ambulatory 09/10/2024 11:45 AM EST OT/PT/Speech Visit [facility] [address] [place] [address] KasDora melvin, LEAN SPECIALIST [address] [place] [address] Arthritis of left glenohumeral joint [M19.012] [facility] Comment on above: Arthritis of left gl enohumeral joint [M19.012] Start: 09-07-2024 End: 09-07-2024 ambulatory 09/07/2024 11:15 AM EST OT/PT/Speech Visit [facility] [address] [place] [address] Wesley Delgado, PT [address] [facility] [place] [address] Arthritis of left glenohumeral joint [M19.012] [facility] Comment on above: Arthritis of left gl enohumeral joint [M19.012] Start: 09-04-2024 End: 09-04-2024 ambulatory 09/04/2024 3:00 PM EST OT/PT/Speech Visit [facility] [address] [place] [address] Wesley Delgado, PT [address] [place] [address] Arthritis of left glenohumeral joint [M19.012] [facility] Comment on above: Arthritis of left gl enohumeral joint [M19.012] Start: 08-31-2024 End: 08-31-2024 ambulatory 08/31/2024 9:30 AM EST OT/PT/Speech Visit [facility] [address] [place] [address] Dora Vee, LEAN SPECIALIST [address] [place] [address] Arthritis of left glenohumeral joint [M19.012] [facility] Comment on above: Arthritis of left gl enohumeral joint [M19.012] Start: 08-28-2024 End: 08-28-2024 ambulatory 08/28/2024 3:00 PM EST OT/PT/Speech Visit [facility] [address] [place] [address] Wesley Delgado, PT [address] [facility] [place] [address] Arthritis of left glenohumeral joint [M19.012] [facility] Comment on above: Arthritis of left gl enohumeral joint [M19.012] Start: 08-24-2024 End: 08-24-2024 ambulatory 08/24/2024 9:30 AM EST OT/PT/Speech Visit [facility] [address] [place] [address] Dora Vee, LEAN SPECIALIST [address] [place] [address] Arthritis of left glenohumeral joint [M19.012] [facility] Comment on above: Arthritis of left gl enohumeral joint [M19.012] Start: 08-21-2024 End: 08-21-2024 ambulatory 08/21/2024 2:00 PM EST OT/PT/Speech Visit [facility] [address] [place] [address] Dora Vee, LEAN SPECIALIST [address] [place] [address] Arthritis of left glenohumeral joint [M19.012] [facility] Comment on above: Arthritis of left gl enohumeral joint [M19.012] Start: 08-07-2024 End: 08-07-2024 ambulatory 08/07/2024 1:30 PM EST OT/PT/Speech Visit [facility] [address] [place] [address] Wesley Delgado, PT [address] [facility] [place] [address] Arthritis of left glenohumeral joint [M19.012] [facility] Comment on above: Arthritis of left gl enohumeral joint [M19.012] Start: 07-18-2024 End: 07-18-2024 Patient encounter procedure 07/18/2024 3:00 PM EDT Office Visit [facility] [place] [address] [place] [address] Jerome Buenrostro, V, DO [address] [place] [address] Arthritis of left glenohumeral joint [M19.012]; Left shoulder pain, unspecified chronicity [M25.512] [facility] [place] Comment on above: Arthritis of left gl enohumeral joint [M19.012]; Left shoulder pain, unspecified chronicity [M25.512] Start: 07-12-2024 End: 07-12-2024 Patient encounter procedure 07/12/2024 1:10 PM EDT Appointment Mammogram [address] [place] [address] [facility] SCREENING Mammogram Comment on above: DANNY SCREENING Start: 06-03-2024 Covid-19 Vaccine ( season) Covid-19 Vaccine ( season) [facility] Start: 06-03-2024 Covid-19 Vaccine ( season) Covid-19 Vaccine ( season) [facility] Start: 06-03-2024 Influenza vaccination [facility] Start: 10-03-2023 Advance Directive Discussion Advance Directive Discussion [facility] Start: 08-15-2023 Patient referral [facility] Work Phone: Start: 06-03-2023 Covid-19 Vaccine ( season) Covid-19 Vaccine () [facility] Start: 06-03-2023 Influenza vaccination [facility] Start: 2023 Advance Directive Discussion Advance Directive Discussion [facility] Start: 2023 Bone Density Screening Bone Density Screening [facility] Start: 2023 Pneumococcal Vaccine : 65+ (1 - PCV) Pneumococcal Vaccine: 65+ (1 - PCV) [facility] Start: 2023 Pneumococcal Vaccine : 65+ (1 of 1 - PCV) Pneumococcal Vaccine: 65+ (1 of 1 - PCV) [facility] Start: 2023 Screening for osteoporosis Bone Density Screening [facility] Start: 12-08-2022 End: 02-07-2023 TOXASSURE FLEX 23, URINE TOXASSURE FLEX 23, URINE Lab Routine High risk medication use Expected: 12/08/2022, Expires: 02/07/2023 [facility] Work Phone: Comment on above: Expected: 12/08/2022 , Expires: 02/07/2023 Start: 11-01-2022 Screening for malign ant neoplasm of colon [facility] Start: 10-03-2022 DEPRESSION ASSESSMENT DEPRESSION ASS [facility] Start: 09-14-2022 End: 11-14-2022 TOXASSURE FLEX 23, URINE TOXASSURE FLEX 23, URINE Lab Routine High risk medication use Expected: 09/14/2022, Expires: 11/14/2022 [facility] Work Phone: Comment on above: Expected: 09/14/2022 , Expires: 11/14/2022 Start: 06-03-2022 Influenza vaccination [facility] Start: 10-03-2021 DEPRESSION ASSESSMENT DEPRESSION ASS [facility] Start: 2018 RSV Vaccine (1 - 1-d ose 60+ series) RSV Vaccine (1 - 1-dose 60+ series) [facility] Start: 2018 RSV Vaccine (1 - Ris k 60-74 years 1-dose series) RSV Vaccine (1 - Risk 60-74 years 1-dose series) [facility] Start: 2008 Pneumococcal Vaccine : 50+ (1 of 1 - PCV) Pneumococcal Vaccine: 50+ (1 of 1 - PCV) [facility] Start: 2008 SHINGRIX VACCINE (1 of 2) SHINGRIX VACCINE (1 of 2) [facility] Start: 2003 COLOGUARD (FIT-DNA) COLOGUARD (FIT-D NA) [facility] Start: 2003 Colonoscopy COLONOSCOPY [facility] Start: 2003 COLORECTAL CANCER SCREENING COLORECTAL CANCER SCREENING [facility] Start: [address] COLONOGRAPHY [facility] Start: 2003 DIABETES SCREEN DIABETES SCREEN [facility] Start: 2003 Diabetes Screening Diabetes Screenin g [facility] Start: 2003 FECAL OCCULT BLOOD FECAL OCCULT BLOO D [facility] Start: 2003 Lipid 1996 panel - S sunil or Plasma Lipid Screening [facility] Start: 2003 Lipid panel Lipid Screening [facility] Start: 2003 LIPID SCREEN LIPID SCREEN [facility] Start: 2003 Screening for malign ant neoplasm of colon [facility] Start: 2003 SIGMOIDOSCOPY SIGMOIDOSCOPY [facility] Start: 2000 PAP TESTING PAP TESTING [facility] Start: 1998 Mammography [facility] Start: 1998 Screening for malign ant neoplasm of breast Mammogram Screening [facility] Start: 1988 HPV TESTING HPV TESTING [facility] Start: 1979 PAP TESTING PAP TESTING [facility] Start: 1977 Urine microalbumin profile [facility] Start: 1976 Anxiety Screening Anxiety Screening [facility] Start: 1976 HEPATITIS C SCREENING HEPATITIS C SC [facility] Start: 1976 Hepatitis C screening Hepatitis C [facility] Start: 1976 HIV SCREENING HIV SCREENING [facility] Start: 1976 HIV screening HIV Screening [facility] Start: 1970 Adult depression screening assessment DEPRESSION SCREENING [facility] Start: 1963 COVID-19 VACCINE (#1) COVID-19 VACCI NE (#1) [facility] Start: 1958 COVID-19 VACCINE (#1) COVID-19 VACCI NE (#1) [facility] Bacteria identified in Urine by Culture URINE CULTURE Microbiology Routine Urinary frequency Ordered: 07/09/2024 [facility] Work Phone: Comment on above: Ordered: 07/09/2024 CTA Chest vessels WO and W contrast IV [facility] Patient referral [facility] Work Phone: [facility] End: 01-16-2025 XR Chest PA and Lateral XR CHEST 2V FRONTAL/LAT Radiology STAT Acute cough 1 Occurrences starting 12/18/2023 until 01/16/2025 [facility] Work Phone: Comment on above: 1 Occurrences starti ng 12/18/2023 until 01/16/2025 [facility] Payers Date Payer Category Payer Self-pay [id number] 2023 Blue Cross Blue Shield BLUE CARD PPO OOS [id number] 2023 Medicare [id number] 2023 Medicare [id number] 2021 Unknown [employer] BLUE CARD PPO OOS [id number] 2021-Present [phone] [address] [place] [address] PPO [id number] 2021 Unknown [id number] 2021 Unknown [id number] 2017 Unknown [id number] Private Health Insurance [facility] [id number] Unknown [facility] [id number] Unknown [id number] Unknown [id number] Unknown [id number] Unknown [id number] Unknown [id number] Unknown [id number] Unknown [id number] Unknown [id number] Unknown [id number] Unknown [id number] Social History Date Type Detail Facility Start: 12-30-2022 End: 08-15-2023 Tobacco smoking status MSIS Tobacco smoking consumption unknown [facility] Start: 1960 Sex Assigned At Not on file [facility] Start: 02-28-2022 End: 05-13-2022 Exposure to SARS-CoV-2 (event) Not sure [facility] Start: 05-13-2022 End: 04-07-2024 Tobacco smoking status MSIS Ex-smoker [facility] History of tobacco use Current smoker [facility] History of tobacco use Cigarette Smoker [facility] Start: 05-13-2022 Tobacco use and exposure Smokeless tobacco non-user [facility] Start: 05-13-2022 End: 01-08-2025 Alcohol intake Ex-drinker (finding) [facility] Start: 07-04-2018 None [facility] Start: 12-10-2013 Spouse/ Signif icant Other [facility] Start: 07-07-2018 Cigarettes [facility] Start: 1960 Sex Assigned At Female [facility] Start: 01-13-2023 End: 07-18-2024 History of Social function [facility] Start: 01-13-2023 End: 07-18-2024 Tobacco use panel [facility] National Score (1-100), lower number is lower risk 34 [facility] Start: 12-18-2024 End: 01-16-2025 Sex Female (finding) [facility] Clinical Notes 04-12-2022 to 01-12-2025 Telephone Encounter - Fly Wen ECG TECHNICIAN.FELIX - 01/08/2025 12:54 PM EDTTelephone Encounter - Fly Wen ECG TECHNICIAN.CASH POSTING SPECIALIST - 01/08/2025 12:54 PM EDTMooFly murrieta ECG TECHNICIAN.FELIX - 01/08/2025 11:43 AM EDT Note Date & Type Note Facility 01-12-2025 Radiology Diagnostic study note [facility] Imaging Services [address] [place] [address] [id number] Chest without Contrast MR#: [id number] Acct: [id number] Name: LAURA WEEKS Rep #: [id number] : 1960 F 64 From: Arnaldo Trinh DO PCP: Diego Greer, PEDIATRIC PATHOLOGIST-C Status: REG CLI Study:Chest without Contrast Date of Exam: 01/12/25 Exam# [id number] Ordering Dr: Tay Montelongo NP PEDIATRIC PATHOLOGIST-C PROCEDURE: CHEST WITHOUT CONTRAST 01/12/2025 REASON FOR EXAM: ABNORMAL ECHOCARDIOGRAM TECHNIQUE: Chest CT without contrast. Coronal and Sagittal reconstruction series were provided. One or more dose reduction techniques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 interventions. Correct performance of therapeutic exercises was facilitated with verbal and visual cuing. Manual Therapy: 1: STM attempted, pt to tender to complete today Skilled Intervention: Manual skills to improve joint mobility, ROM, and decrease pain. Utilized anatomy knowledge of the therapist, and assessment of patient's response to intervention. Billing Therapeutic Exercise Treatment Minutes: 43 Manual TherapyTreatment Minutes: 2 Skilled Treatment Time Minutes (timed and untimed codes): 45 Total Session Time (minutes): 45 Session Start Time : 1141 Session Stop Time : 1226 MAYANK Guevara, PT, DPT.[facility]12-06-2024 History of Present illness Narrative* Wesley Delgado, PT - 09/07/2024 11:46 AM EST Episode Visit Count: 6 Therapist That Will Accept/Oversee The Plan Of Care: Wesley Delgado PT Start of Care Date: 08/07/24 Onset Date: 01/02/24 Plan of Care Certification Date: 08/07/24 Next Certification Due Date: 09/21/24 Patient Identified by Name and Date of : Yes REHABILITATION AND SPORTS THERAPY PHYSICAL THERAPY TREATMENT NOTE ASSESSMENT: Laura Weeks tolerated the session with fatigue and expected muscle soreness. She demonstrated difficulty with isometrics due to fatigue. The patient will continue to benefit from ongoing skilled physical therapy to progress toward set goals. PLAN FOR NEXT VISIT: Continue with isometrics SUBJECTIVE: Pt states that her shoulder is sore today. Pain: Pain Pain Level: 5 Pain Location: Shoulder - Left Description: Aching Post Treatment Pain Post Treatment Pain Location: Shoulder - Left Post Treatment Pain Description: Sore OBJECTIVE MEASURES WITH LEVEL OF FUNCTION: Form observed throughout session. TREATMENT: Therapeutic Exercise: 1: UBE: 2 Min FWD, 1.5 Min BWD. DIrect 1:1 and subjective taken. Resistance 0. 2: Pulleys for flexion: 3 Min. 3: Shoulder isometrics: x10 each with 5 second holds: flexion, extension, ER, IR , abduction. Increased verbal & tactile cues for form. 4: Standing Wand B IR Wand Up Back: 2x10. Skilled Intervention: Patient was educated in proper exercise technique and purpose for exercises. Skilled judgment was used in selection of appropriate interventions. Correct performance of therapeutic exercises was facilitated with verbal and visual cuing. Manual Therapy: 1: STM attempted, pt to tender to complete today Skilled Intervention: Manual skills to improve joint mobility, ROM, and decrease pain. Utilized anatomy knowledge of the therapist, and assessment of patient's response to intervention. Billing Therapeutic Exercise Treatment Minutes: 43 Manual TherapyTreatment Minutes: 2 Skilled Treatment Time Minutes (timed and untimed codes): 45 Total Session Time (minutes): 45 Session Start Time : 1141 Session Stop Time : 1226 MAYANK Guevara PT, DPT. documented in this encounterPrem[facility]12-[facility]24 NoteHNO ID: [id number] Author: WESLEY DELGADO PT Service: ? Author Type: Physical Therapist Type: Progress Notes Filed: 09/04/2024 15:42 Note Text: Episode Visit Count: 5 Therapist That Will Accept/Oversee The Plan Of Care: Wesley Delgado PT Start of Care Date: 08/07/24 Onset Date: 01/02/24 Plan of Care Certification Date: 08/07/24 Next Certification Due Date: 09/21/24 Patient Identified by Name and Date of : Yes REHABILITATION AND SPORTS THERAPY PHYSICAL THERAPY TREATMENT NOTE ASSESSMENT: Laura Weeks tolerated the session with decreased symptoms and expected muscle soreness. She demonstrated tenderness on L Supra/Infraspinatus. The patient will continue to benefit from ongoing skilled physical therapy to progress toward set goals. PLAN FOR NEXT VISIT: Progress ther-ex as tolerated. SUBJECTIVE: Has not been too bad the last week; noticing little improvement week to week with putting deoderant on and washing hair. Increased soreness today due to completing home ADLs. States HEP is not as much as she should do to time. Pain: Pain Pain Level: 7 Pain Location: Shoulder - Left Description: Aching, Sore Post Treatment Pain Post Treatment Pain Location: Shoulder - Left OBJECTIVE MEASURES WITH LEVEL OF FUNCTION: UE AROM L Shoulder Flex: 135 Degrees (Pulleys) TREATMENT: Therapeutic Exercise: 1: Pulleys for flexion: 3 Min. 2: Shoulder isometrics: 2x10 each with 5 second holds: flexion, extension, ER, IR , abduction. Increased verbal AND tactile cues for form. (Straight arm with Ext, abd, AND flexion.) Skilled Intervention: Patient was educated in proper exercise technique and purpose for exercises. Skilled judgment was used in selection of appropriate interventions. Correct performance of therapeutic exercises was facilitated with verbal and tactile cuing. Manual Therapy: 1: STM with lacrosse ball to L Supra/Infraspinatus: Push to tolerance. Skilled Intervention: Manual skills to improve joint mobility, ROM, and decrease pain. Utilized anatomy knowledge of the therapist, and assessment of patient's response to intervention. Billing Therapeutic Exercise Treatment Minutes: 29 Manual TherapyTreatment Minutes: 12 Skilled Treatment Time Minutes (timed and untimed codes): 41 Total Session Time (minutes): 41 Session Start Time : 1459 Session Stop Time : 1540 Wesley Delgado, [facility]12-03-2024 History of Present illness Narrative* Wesley Delgado, PT - 09/04/2024 3:04 PM EST Episode Visit Count: 5 Therapist That Will Accept/Oversee The Plan Of Care: Wesley Delgado PT Start of Care Date: 08/07/24 Onset Date: 01/02/24 Plan of Care Certification Date: 08/07/24 Next Certification Due Date: 09/21/24 Patient Identified by Name and Date of : Yes REHABILITATION AND SPORTS THERAPY PHYSICAL THERAPY TREATMENT NOTE ASSESSMENT: Laura Weeks tolerated the session with decreased symptoms and expected muscle soreness. She demonstrated tenderness on L Supra/Infraspinatus. The patient will continue to benefit from ongoing skilled physical therapy to progress toward set goals. PLAN FOR NEXT VISIT: Progress ther-ex as tolerated. SUBJECTIVE: Has not been too bad the last week; noticing little improvement week to week with putting deoderant on and washing hair. Increased soreness today due to completing home ADLs. States HEP is not as much as she should do to time. Pain: Pain Pain Level: 7 Pain Location: Shoulder - Left Description: Aching, Sore Post Treatment Pain Post Treatment Pain Location: Shoulder - Left OBJECTIVE MEASURES WITH LEVEL OF FUNCTION: UE AROM L Shoulder Flex: 135 Degrees (Pulleys) TREATMENT: Therapeutic Exercise: 1: Pulleys for flexion: 3 Min. 2: Shoulder isometrics: 2x10 each with 5 second holds: flexion, extension, ER, IR , abduction. Increased verbal & tactile cues for form. (Straight arm with Ext, abd, & flexion.) Skilled Intervention: Patient was educated in proper exercise technique and purpose for exercises. Skilled judgment was used in selection of appropriate interventions. Correct performance of therapeutic exercises was facilitated with verbal and tactile cuing. Manual Therapy: 1: STM with lacrosse ball to L Supra/Infraspinatus: Push to tolerance. Skilled Intervention: Manual skills to improve joint mobility, ROM, and decrease pain. Utilized anatomy knowledge of the therapist, and assessment of patient's response to intervention. Billing Therapeutic Exercise Treatment Minutes: 29 Manual TherapyTreatment Minutes: 12 Skilled Treatment Time Minutes (timed and untimed codes): 41 Total Session Time (minutes): 41 Session Start Time : 1458 Session Stop Time : 1540 Wesley Delgado PT documented in this encounterPremier Health [facility]11-29-[facility]24 NoteHNO ID: [id number] Author: WESLEY DELGADO PT Service: ? Author Type: Physical Therapist Type: Progress Notes Filed: 08/31/2024 10:57 Note Text: Episode Visit Count: 4 Therapist That Will Accept/Oversee The Plan Of Care: Wesley Delgado PT Start of Care Date: 08/07/24 Onset Date: 01/02/24 Plan of Care Certification Date: 08/07/24 Next Certification Due Date: 09/21/24 Patient Identified by Name and Date of : Yes REHABILITATION AND SPORTS THERAPY PHYSICAL THERAPY TREATMENT NOTE ASSESSMENT: Laura Weeks tolerated the session with fatigue and expected muscle soreness. She demonstrated improvements in tolerance to isometrics without increase in L shoulder pain. The patient will continue to benefit from ongoing skilled physical therapy to progress toward set goals. PLAN FOR NEXT VISIT: Asses response to isometrics. SUBJECTIVE: Pt reports that her L shoulder is a little sore today. Pain: Pain Pain Level: 6 Pain Location: Shoulder - Left Description: Aching Post Treatment Pain Post Treatment Pain Location: Shoulder - Left OBJECTIVE MEASURES WITH LEVEL OF FUNCTION: Limitations with wand AAROM ER in HL. TREATMENT: Therapeutic Exercise: 1: Pulleys for flexion: 3 Min. 2: HL Shoulder wand AAROM flexion: 3x15, 2# cuff added. 3: HL Shoulder Wand L ER AAROM: 2x15.. 4: Shoulder isometrics x 5 with 5 second holds: flexion, extension, ER, IR , abduction 5: Standing Wand B IR Wand Up Back: 2x10. 6: Standing Wand L IR AAROM with R Arm Pull: 2x10. Skilled Intervention: Patient was educated in proper exercise technique and purpose for exercises. Skilled judgment was used in selection of appropriate interventions. Correct performance of therapeutic exercises was facilitated with verbal and visual cuing. Billing Therapeutic Exercise Treatment Minutes: 45 Skilled Treatment Time Minutes (timed and untimed codes): 45 Total Session Time (minutes): 45 Session Start Time : 928 Session Stop Time : 1014 MAYANK Guevara PT, DPT.[facility]11-29-2024 History of Present illness Narrative* Wesley Delgado, PT - 08/31/2024 9:32 AM EST Episode Visit Count: 4 Therapist That Will Accept/Oversee The Plan Of Care: Wesley Delgado PT Start of Care Date: 08/07/24 Onset Date: 01/02/24 Plan of Care Certification Date: 08/07/24 Next Certification Due Date: 09/21/24 Patient Identified by Name and Date of : Yes REHABILITATION AND SPORTS THERAPY PHYSICAL THERAPY TREATMENT NOTE ASSESSMENT: Laura Weeks tolerated the session with fatigue and expected muscle soreness. She demonstrated improvements in tolerance to isometrics without increase in L shoulder pain. The patientwill continue to benefit from ongoing skilled physical therapy to progress toward set goals. PLAN FOR NEXT VISIT: Asses response to isometrics. SUBJECTIVE: Pt reports that her L shoulder is a little sore today. Pain: Pain Pain Level: 6 Pain Location: Shoulder - Left Description: Aching Post Treatment Pain Post Treatment Pain Location: Shoulder - Left OBJECTIVE MEASURES WITH LEVEL OF FUNCTION: Limitations with wand AAROM ER in HL. TREATMENT: Therapeutic Exercise: 1: Pulleys for flexion: 3 Min. 2: HL Shoulder wand AAROM flexion: 3x15, 2# cuff added. 3: HL Shoulder Wand L ER AAROM: 2x15.. 4: Shoulder isometrics x 5 with 5 second holds: flexion, extension, ER, IR , abduction 5: Standing Wand B IR Wand Up Back: 2x10. 6: Standing Wand L IR AAROM with R Arm Pull: 2x10. Skilled Intervention: Patient was educated in proper exercise technique and purpose for exercises. Skilled judgment was used in selection of appropriate interventions. Correct performance of therapeutic exercises was facilitated with verbal and visual cuing. Billing Therapeutic Exercise Treatment Minutes: 45 Skilled Treatment Time Minutes (timed and untimed codes): 45 Total Session Time (minutes): 45 Session Start Time : 928 Session Stop Time : 101 MAYANK Guevara PT, DPT. [facility] History of Present illness Narrative* Wesley Delgado, PT - 08/27/2024 12:06 PM EST Program_ID:[id number] Access Code: [email or web address] URL: [email or web address] Date: 08-27-2024 Prepared By: Wesley Delgado Program Notes Exercises - Supine Shoulder Flexion Extension AAROM with Dowel - 2 x daily - 7 x weekly - 2-3 sets - 10-15 reps - Supine Shoulder External Rotation with Dowel - 2 x daily - 7 x weekly - 2-3 sets - 10-15 reps - Standing Shoulder Extension with Dowel - 2 x daily - 7 x weekly - 2-3 sets - 10-15 reps - Supine Shoulder Press AAROM in Abduction with Dowel - 2 x daily - 7 x weekly - 2-3 sets - 10-15 reps - Seated Scapular Retraction - 2 x daily - 7 x weekly - 2 sets - 10 reps - Standing Bilateral Shoulder Internal Rotation AAROM with Dowel - 2 x daily - 7 x weekly - 2 sets - 10 reps - Standing Shoulder Internal Rotation AAROM with Dowel - 2 x daily - 7 x weekly - 2 sets - 10 reps * Wesley Delgado, PT - 08/27/2024 11:29 AM EST Episode Visit Count: 3 Therapist That Will Accept/Oversee The Plan Of Care: Wesley Delgado PT Start of Care Date: 08/07/24 Onset Date: 01/02/24 Plan of Care Certification Date: 08/07/24 Next Certification Due Date: 09/21/24 Patient Identified by Name and Date of : Yes REHABILITATION AND SPORTS THERAPY PHYSICAL THERAPY TREATMENT NOTE ASSESSMENT: Laura Weeks tolerated the session with expected muscle soreness. She demonstrated improvements in L Shoulder Flexion AAROM. The patient will continue to benefit from ongoing skilled physical therapy to progress toward set goals. PLAN FOR NEXT VISIT: Begin Isometrics. SUBJECTIVE: Left SHoulder has been doing better; trouble today putting clips into hair. Able to puther coat on easier without pain. Notes improvement. HEP semi-compliance every other day right now. Pain: Pain Pain Level: 4 Pain Location: Shoulder - Left Description: Aching Post Treatment Pain Post Treatment Pain Location: Shoulder - Left OBJECTIVE MEASURES WITH LEVEL OF FUNCTION: UE AROM L Shoulder Flex: 130 Degrees (Pulleys & Wand Flexion in Supine.) TREATMENT: Therapeutic Exercise: 1: Discussed importance of proper adherance to prescribed HEP/parameters. Discussed completing HEP daily. 2: UBE: 2 Min FWD, 2 Min BWD. DIrect 1:1 and subjective taken. Resistance 0. 3: Pulleys for flexion: 3 Min. 4: HL Shoulder wand AAROM flexion: 3x15, 2# cuff added. 5: HL Shoulder Wand L ER AAROM: 2x15.. 6: Standing wand AAROM abduction 2x10 7: *Standing Wand B IR Wand Up Back: 2x10. 8: *Standing Wand L IR AAROM with R Arm Pull: 2x10. 9: Handout given for both IR AAROM Exercises for patient to trial which she likes best. Skilled Intervention: Patient was educated in proper exercise technique and purpose for exercises. Reviewed and educated patient on additions/changes for home exercise program as above (*). Skilled judgment was used in selection of appropriate interventions. Provided written instruction for home exercise program to facilitate proper performance and compliance. Billing Therapeutic Exercise Treatment Minutes: 40 Skilled Treatment Time Minutes (timed and untimed codes): 40 Total Session Time (minutes): 40 Session Start Time : 1130 Session Stop Time : 1210 Wesley Delgado PT documented in this encounterPrem[facility]24 NoteHNO ID: [id number] Author: WESLEY DELGADO PT Service: ? Author Type: Physical Therapist Type: Progress Notes Filed: 08/27/2024 12:14 Note Text: Episode Visit Count: 3 Therapist That Will Accept/Oversee The Plan Of Care: Wesley Delgado PT Start of Care Date: 08/07/24 Onset Date: 01/02/24 Plan of Care Certification Date: 08/07/24 Next Certification Due Date: 09/21/24 Patient Identified by Name and Date of : Yes REHABILITATION AND SPORTS THERAPY PHYSICAL THERAPY TREATMENT NOTE ASSESSMENT: Laura Weeks tolerated the session with expected muscle soreness. She demonstrated improvements in L Shoulder Flexion AAROM. The patient will continue to benefit from ongoing skilled physical therapy to progress toward set goals. PLAN FOR NEXT VISIT: Begin Isometrics. SUBJECTIVE: Left SHoulder has been doing better; trouble today putting clips into hair. Able to put her coat on easier without pain. Notes improvement. HEP semi-compliance every other day right now. Pain: Pain Pain Level: 4 Pain Location: Shoulder - Left Description: Aching Post Treatment Pain Post Treatment Pain Location: Shoulder - Left OBJECTIVE MEASURES WITH LEVEL OF FUNCTION: UE AROM L Shoulder Flex: 130 Degrees (Pulleys AND Wand Flexion in Supine.) TREATMENT: Therapeutic Exercise: 1: Discussed importance of proper adherance to prescribed HEP/parameters. Discussed completing HEP daily. 2: UBE: 2 Min FWD, 2 Min BWD. DIrect 1:1 and subjective taken. Resistance 0. 3: Pulleys for flexion: 3 Min. 4: HL Shoulder wand AAROM flexion: 3x15, 2# cuff added. 5: HL Shoulder Wand L ER AAROM: 2x15.. 6: Standing wand AAROM abduction 2x10 7: *Standing Wand B IR Wand Up Back: 2x10. 8: *Standing Wand L IR AAROM with R Arm Pull: 2x10. 9: Handout given for both IR AAROM Exercises for patient to trial which she likes best. Skilled Intervention: Patient was educated in proper exercise technique and purpose for exercises. Reviewed and educated patient on additions/changes for home exercise program as above (*). Skilled judgment was used in selection of appropriate interventions. Provided written instruction for home exercise program to facilitate proper performance and compliance. Billing Therapeutic Exercise Treatment Minutes: 40 Skilled Treatment Time Minutes (timed and untimed codes): 40 Total Session Time (minutes): 40 Session Start Time : 1130 Session Stop Time : 1210 Wesley Delgado [facility]11-19-2024 NoteHNO ID: [id number] Author: WESLEY DELGADO PT Service: ? Author Type: Physical Therapist Type: Progress Notes Filed: 08/22/2024 06:30 Note Text: Episode Visit Count: 2 Therapist That Will Accept/Oversee The Plan Of Care: Wesley Delgado PT Start of Care Date: 08/07/24 Onset Date: 01/02/24 Plan of Care Certification Date: 08/07/24 Next Certification Due Date: 09/21/24 Patient Identified by Name and Date of : Yes REHABILITATION AND SPORTS THERAPY PHYSICAL THERAPY TREATMENT NOTE ASSESSMENT: Laura Weeks tolerated the session with fatigue and expected muscle soreness. She demonstrated improvements in ability to perform pulleys without pain. The patient will continue to benefit from ongoing skilled physical therapy to progress toward set goals. PLAN FOR NEXT VISIT: Continnue with AAROM of L shoulder. Consider wall slides SUBJECTIVE: Pt reports that her shoulder is kind of sore today,, because she has had to use it. Exercises are going well, not doing as frequently. Pain: Pain Pain Level: 5 Pain Location: Shoulder - Left Description: (toothache) Post Treatment Pain Post Treatment Pain Location: Shoulder - Left Post Treatment Symptoms: aching OBJECTIVE MEASURES WITH LEVEL OF FUNCTION: Improved form and technique with all exercise. TREATMENT: Therapeutic Exercise: 1: *Pulleys for flexion 2x10 2: Scapular retractions 2x10 with 1-2 second holds 3: HL Shoulder wand AAROM flexion 2x10 4: HL Shoulder Wand L ER AAROM: 3x10. 5: Standing wand AAROM abduction 2x10 6: Standing wand extension 2x10 7: Standing wand IR AAROM behind back 2x5 Skilled Intervention: Patient was educated in proper exercise technique and purpose for exercises. Reviewed and educated patient on additions/changes for home exercise program as above (*). Skilled judgment was used in selection of appropriate interventions. Provided written instruction for home exercise program to facilitate proper performance and compliance. Correct performance of therapeutic exercises was facilitated with verbal and visual cuing. Billing Therapeutic Exercise Treatment Minutes: 43 Skilled Treatment Time Minutes (timed and untimed codes): 43 Total Session Time (minutes): 43 Session Start Time : 1400 Session Stop Time : 1443 Dora Vee, MAYANK Delgado, PT, DPT.[facility]11-19-2024 History of Present illness Narrative* Wesley Delgado, PT - 08/21/2024 2:00 PM EST Episode Visit Count: 2 Therapist That Will Accept/Oversee The Plan Of Care: Wesley Delgado PT Start of Care Date: 08/07/24 Onset Date: 01/02/24 Plan of Care Certification Date: 08/07/24 Next Certification Due Date: 09/21/24 Patient Identified by Name and Date of : Yes REHABILITATION AND SPORTS THERAPY PHYSICAL THERAPY TREATMENT NOTE ASSESSMENT: Laura Weeks tolerated the session with fatigue and expected muscle soreness. She demonstrated improvements in ability to perform pulleys without pain. The patient will continue to benefit from ongoing skilled physical therapy to progress toward set goals. PLAN FOR NEXT VISIT: Continnue with AAROM of L shoulder. Consider wall slides SUBJECTIVE: Pt reports that her shoulder is kind of sore today,, because she has had to use it. Exercises are going well, not doing as frequently. Pain: Pain Pain Level: 5 Pain Location: Shoulder - Left Description: (toothache) Post Treatment Pain Post Treatment Pain Location: Shoulder - Left Post Treatment Symptoms: aching OBJECTIVE MEASURES WITH LEVEL OF FUNCTION: Improved form and technique with all exercise. TREATMENT: Therapeutic Exercise: 1: *Pulleys for flexion 2x10 2: Scapular retractions 2x10 with 1-2 second holds 3: HL Shoulder wand AAROM flexion 2x10 4: HL Shoulder Wand L ER AAROM: 3x10. 5: Standing wand AAROM abduction 2x10 6: Standing wand extension 2x10 7: Standing wand IR AAROM behind back 2x5 Skilled Intervention: Patient was educated in proper exercise technique and purpose for exercises. Reviewed and educated patient on additions/changes for home exercise program as above (*). Skilled judgment was used in selection of appropriate interventions. Provided written instruction for home exercise program to facilitate proper performance and compliance. Correct performance of therapeutic exercises was facilitated with verbal and visual cuing. Billing Therapeutic Exercise Treatment Minutes: 43 Skilled Treatment Time Minutes (timed and untimed codes): 43 Total Session Time (minutes): 43 Session Start Time : 1400 Session Stop Time : 1443 MAYANK Guevara PT, DPT. documented in this encounterPrem[facility] Telephone encounter Note * Telephone Encounter - Kelsea Silverio - 08/14/2024 9:52 AM EST Patient has been identified by name and date of : Yes Last office visit in this department: Visit date not found RX INSTRUCTIONS: Patient aware RX will be sent to pharmacy. No need to notify patient. Patient phones requesting refills as follows: Requested Prescriptions Pending Prescriptions Disp Refills meloxicam (MOBIC) 15 mg tablet 30 tablet 0 Sig: Take 1 tablet by mouth once daily. Please review and advise. Kelsea Jean Claude [facility]11-12-2024 Miscellaneous Notes* Telephone Encounter - Jean Claude Kelsea - 08/14/2024 9:52 AM EST Patient has been identified by name and date of : Yes Last office visit in this department: Visit date not found RX INSTRUCTIONS: Patient aware RX will be sent to pharmacy. No need to notify patient. Patient phones requesting refills as follows: Requested Prescriptions Pending Prescriptions Disp Refills meloxicam (MOBIC) 15 mg tablet 30 tablet 0 Sig: Take 1 tablet by mouth once daily. Please review and advise. Kelsea Jean Claude documented in this encounterPrem[facility]11-[facility]-20[facility] History of Present illness Narrative* Wesley Delgado, PT - 08/07/2024 2:13 PM EST Program_ID:[id number] Access Code: [email or web address] URL: [email or web address] Date: 08-07-2024 Prepared By: Wesley Delgado Program Notes Exercises - Supine Shoulder Flexion Extension AAROM with Dowel - 2 x daily - 7 x weekly - 2-3 sets - 10-15 reps - Supine Shoulder External Rotation with Dowel - 2 x daily - 7 x weekly - 2-3 sets - 10-15 reps - Standing Shoulder Extension with Dowel - 2 x daily - 7 x weekly - 2-3 sets - 10-15 reps - Supine Shoulder Press AAROM in Abduction with Dowel - 2 x daily - 7 x weekly - 2-3 sets - 10-15 reps - Seated Scapular Retraction - 2 x daily - 7 x weekly - 2 sets - 10 reps * Wesley Delgado, PT - 08/07/2024 1:31 PM EST Images from the original note were not included. Episode Visit Count: 1 Therapist That Will Accept/Oversee The Plan Of Care: Wesley Delgado PT Start of Care Date: 08/07/24 Onset Date: 01/02/24 Plan of Care Certification Date: 08/07/24 Next Certification Due Date: 09/21/24 Patient Identified by Name and Date of : Yes REHABILITATION AND SPORTS THERAPY PHYSICAL THERAPY EVALUATION PLAN OF CARE: Assessment: Laura Weeks presents with chief complaint of L Shoulder Pain and worsening of deficits in ROM that interferes with use hand with arm at shoulder level, reaching overhead, reaching behind back, driving, pulling, pushing, carrying, sleeping (Laying on L Side; House Mgmt ADLs.) . The patient presents with impairments in ADL's, independence in exercise, overall function, range of motion, strength, symptom management, and tissue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 Author: JIA KRUEGER PA Service: ? Author Type: Physician Meteorological Technician Type: Progress Notes Filed: 07/09/2024 15:39 Note Text: This note was created using [employer]. Subjective Laura Weeks is a 64 year old female. HPI 64-year-old female presents for UTI symptoms. Patient has been having urinary frequency, burning, itching for the past 3 days. She denies any abdominal pain, back pain, fevers, vomiting. She states she has history of UTIs in the past and this feels similar. She has not had any vaginal discharge. She was last treated for UTI several months ago. She has not been on antibiotics recently. She states she has no history of diabetes. She has been taking Azo and d-mannose pills [id number]. PAST MEDICAL HISTORY Diagnosis Date ADD (attention deficit disorder) Cardiomyopathy (HCC) Depression Fibromyalgia GERD (gastroesophageal reflux disease) Hyperlipidemia Hypertension No past surgical history on file. ALLERGIES Oxycodone, Pregabalin, and Nefazodone MEDICATIONS empagliflozin (JARDIANCE) 10 mg tablet Take 10 mg by mouth daily with breakfast. metoprolol succinate ER (TOPROL XL) 100 mg Take 1 tablet by mouth every 12 hours. losartan (COZAAR) 100 mg tablet spironolactone (ALDACTONE) 25 mg tablet amLODIPine (NORVASC) 10 mg tablet KAPSPARGO SPRINKLE 25 mg CSpX TAKE 1 CAPSULE BY MOUTH EVERY DAY FOR 90 DAYS rosuvastatin (CRESTOR) 10 mg tablet TAKE 1 TABLET BY MOUTH EVERY DAY FOR 90 DAYS diazePAM (VALIUM) 5 mg tablet TAKE 1 TABLET BY MOUTH TWICE A DAY NEEDED FOR ANXIETY FOR 30 DAYS No family history on file. Social History Tobacco Use Smoking status: Former Types: Cigarettes Smokeless tobacco: Never Substance Use Topics Alcohol use: Not Currently Drug use: Never Review of Systems Constitutional: Negative for chills and fever. HENT: Negative for congestion, ear pain and sore throat. Respiratory: Negative for cough and shortness of breath. Cardiovascular: Negative for chest pain. Gastrointestinal: Negative for abdominal pain, diarrhea and vomiting. Genitourinary: Positive for dysuria, frequency and urgency. Negative for vaginal discharge and vaginal pain. Objective BP 122/64 Pulse 80 Temp 36.5 ?C (97.7 ?F) (Tympanic) Resp 18 Wt 74.1 kg (163 lb 5.8 oz) LMP (LMP Unknown) SpO2 96% BMI 26.37 kg/m? Physical Exam Vitals and nursing note reviewed. Constitutional: General: She is not in acute distress. Appearance: Normal appearance. She is not toxic-appearing. HENT: Nose: Nose normal. Mouth/Throat: Mouth: Mucous membranes are moist. Eyes: Conjunctiva/sclera: Conjunctivae normal. Cardiovascular: Rate and Rhythm: Normal rate and regular rhythm. Pulmonary: Effort: Pulmonary effort is normal. Breath sounds: Normal breath sounds. Abdominal: General: Abdomen is flat. Palpations: Abdomen is soft. Tenderness: There is no abdominal tenderness. There is no right CVA tenderness, left CVA tenderness, guarding or rebound. Skin: General: Skin is warm and dry. Neurological: Mental Status: She is alert. Assessment and Plan ASSESSMENT/PLAN: 1. Urinary frequency - ICD9: 788.41, ICD10: R35.0 acute - UA positive for 500 glucose-patient on Jardiance. - POC glucose 115 - Send urine for culture -Patient does report some vaginal itching, no discharge. Rx for mycolog ointment. - Patient education for prevention given - UA DIP, URINE (POC) - URINE CULTURE - GLUCOSE, BLOOD (POC) Diagnosis and treatment plan were discussed and questions were answered to the patient's satisfaction. Pt acknowledged understanding of concepts and follow up plan. Specific signs and symptoms that would indicate the need for higher level of care were discussed in detail warranting prompt ER evaluation. Jia Krueger [facility]10-07-2024 History of Present illness Narrative* Jia Krueger PA - 07/09/2024 3:33 PM EDT This note was created using [employer]. Subjective Laura Weeks is a 64 year old female. HPI 64-year-old female presents for UTI symptoms. Patient has been having urinary frequency, burning, itching for the past 3 days. She denies any abdominal pain, back pain, fevers, vomiting. She states she has history of UTIs in the past and this feels similar. She has not had any vaginal discharge. She was last treated for UTI several months ago. She has not been on antibiotics recently. She states she has no history of diabetes. She has been taking Azo and d-mannose pills [id number]. PAST MEDICAL HISTORY Diagnosis Date ADD (attention deficit disorder) Cardiomyopathy (HCC) Depression Fibromyalgia GERD (gastroesophageal reflux disease) Hyperlipidemia Hypertension No past surgical history on file. ALLERGIES Oxycodone, Pregabalin, and Nefazodone MEDICATIONS empagliflozin (JARDIANCE) 10 mg tablet Take 10 mg by mouth daily with breakfast. metoprolol succinate ER (TOPROL XL) 100 mg Take 1 tablet by mouth every 12 hours. losartan (COZAAR) 100 mg tablet spironolactone (ALDACTONE) 25 mg tablet amLODIPine (NORVASC) 10 mg tablet KAPSPARGO SPRINKLE 25 mg CSpX TAKE 1 CAPSULE BY MOUTH EVERY DAY FOR 90 DAYS rosuvastatin (CRESTOR) 10 mg tablet TAKE 1 TABLET BY MOUTH EVERY DAY FOR 90 DAYS diazePAM (VALIUM) 5 mg tablet TAKE 1 TABLET BY MOUTH TWICE A DAY NEEDED FOR ANXIETY FOR 30 DAYS No family history on file. Social History Tobacco Use Smoking status: Former Types: Cigarettes Smokeless tobacco: Never Substance Use Topics Alcohol use: Not Currently Drug use: Never Review of Systems Constitutional: Negative for chills and fever. HENT: Negative for congestion, ear pain and sore throat. Respiratory: Negative for cough and shortness of breath. Cardiovascular: Negative for chest pain. Gastrointestinal: Negative for abdominal pain, diarrhea and vomiting. Genitourinary: Positive for dysuria, frequency and urgency. Negative for vaginal discharge and vaginal pain. Objective BP 122/64 Pulse 80 Temp 36.5 C (97.7 F) (Tympanic) Resp 18 Wt 74.1 kg (163 lb 5.8 oz) LMP(LMP Unknown) SpO2 96% BMI 26.37 kg/m Physical Exam Vitals and nursing note reviewed. Constitutional: General: She is not in acute distress. Appearance: Normal appearance. She is not toxic-appearing. HENT: Nose: Nose normal. Mouth/Throat: Mouth: Mucous membranes are moist. Eyes: Conjunctiva/sclera: Conjunctivae normal. Cardiovascular: Rate and Rhythm: Normal rate and regular rhythm. Pulmonary: Effort: Pulmonary effort is normal. Breath sounds: Normal breath sounds. Abdominal: General: Abdomen is flat. Palpations: Abdomen is soft. Tenderness: There is no abdominal tenderness. There is no right CVA tenderness, left CVA tenderness, guarding or rebound. Skin: General: Skin is warm and dry. Neurological: Mental Status: She is alert. Assessment and Plan ASSESSMENT/PLAN: 1. Urinary frequency - ICD9: 788.41, ICD10: R35.0 acute - UA positive for 500 glucose-patient on Jardiance. - POC glucose 115 - Send urine for culture -Patient does report some vaginal itching, no discharge. Rx for mycolog ointment. - Patient education for prevention given - UA DIP, URINE (POC) - URINE CULTURE - GLUCOSE, BLOOD (POC) Diagnosis and treatment plan were discussed and questions were answered to the patient's satisfaction. Pt acknowledged understanding of concepts and follow up plan. Specific signs and symptoms that would indicate the need for higher level of care were discussed in detail warranting prompt ER evaluation. OZZIE Villarreal documented in this encounterPrem[facility] History of Present illness Narrative* Jose Armando Ruiz RT(R) - 07/02/2024 1:20 PM EDT Radiology Service Progress Note PATIENT NAME: Laura Weeks DATE OF SERVICE: July 02, 2024 TIME: 1:15 PM PATIENT IDENTITY VERIFICATION COMPLETED USING TWO (2) IDENTIFIERS: Name and Date of confirmedby patient verbally. FALL SCREENING: Has the patient had 2 falls in the last year or 1 fall with injury or currently using an Ambulatory Assistive Device (Walker, Cane, Wheelchair, Crutches, etc.)? No PATIENT GENDER DATA: Female. status: : No status: NO. PATIENT RELEVANT IMPLANT DATA REVIEWED: Not Applicable PATIENT PRESENTS WITH AN IMPLANTABLE OR ATTACHED MOBILE WEB APPLICATION DEVELOPER: No RADIOLOGY DEPARTMENT: General X-ray: Exam(s) Completed: Upper Extremity X- Ray(s): Shoulder, AP / TRUE AP / SUPRA OUTLET left PERIPHERAL IV DATA: Not applicable SIGNED BY: RT Nona(Adonis) July 02, 2024 1:15 PM documented in this encounterPremier [facility]-30-[facility]24 NoteHNO ID: [id number] Author: JOSE ARMANDO RUIZ RT(R) Service: Radiology Author Type: Technologist Type: Progress Notes Filed: 07/02/2024 13:24 Note Text: Radiology Service Progress Note PATIENT NAME: Laura Weeks DATE OF SERVICE: July 02, 2024 TIME: 1:15 PM PATIENT IDENTITY VERIFICATION COMPLETED USING TWO (2) IDENTIFIERS: Name and Date of confirmed by patient verbally. FALL SCREENING: Has the patient had 2 falls in the last year or 1 fall with injury or currently using an Ambulatory Assistive Device (Walker, Cane, Wheelchair, Crutches, etc.)? No PATIENT GENDER DATA: Female. status: : No status: NO. PATIENT RELEVANT IMPLANT DATA REVIEWED: Not Applicable PATIENT PRESENTS WITH AN IMPLANTABLE OR ATTACHED MOBILE WEB APPLICATION DEVELOPER: No RADIOLOGY DEPARTMENT: General X-ray: Exam(s) Completed: Upper Extremity X-Ray(s): Shoulder, AP / TRUE AP / SUPRA OUTLET left PERIPHERAL IV DATA: Not applicable SIGNED BY: Jose Armando Ruiz, RT(R) July 02, 2024 1:15 [facility]09-30-2024 NoteHNO ID: [id number] Author: AJ CLEMENT MD Service: ? Author Type: Physician Type: Progress Notes Filed: 07/02/2024 13:42 Note Text: Patient presents with: Pain: Left shoulder pain x 5 weeks HPI: Left shoulder pain: Duration: Started bothering her in the spring a few months ago, flared up worse the last 5 weeks without specific injury Location: left shoulder Character: aching and sharp Radiation: sometimes in the lateral upper arm and neck Aggravating: abduction (hurts to put on deodorant), unable to wash hair with left arm Relieving: Pain relievers: Motrin and Tylenol Associated: fibromyalgia Pertinent negatives: Denies numbness, weakness PAST MEDICAL HISTORY Diagnosis Date ADD (attention deficit disorder) Cardiomyopathy (HCC) Depression Fibromyalgia GERD (gastroesophageal reflux disease) Hyperlipidemia Hypertension MEDICATIONS: empagliflozin (JARDIANCE) 10 mg tablet Take 10 mg by mouth daily with breakfast. metoprolol succinate ER (TOPROL XL) 100 mg Take 1 tablet by mouth every 12 hours. losartan (COZAAR) 100 mg tablet spironolactone (ALDACTONE) 25 mg tablet amLODIPine (NORVASC) 10 mg tablet KAPSPARGO SPRINKLE 25 mg CSpX TAKE 1 CAPSULE BY MOUTH EVERY DAY FOR 90 DAYS rosuvastatin (CRESTOR) 10 mg tablet TAKE 1 TABLET BY MOUTH EVERY DAY FOR 90 DAYS diazePAM (VALIUM) 5 mg tablet TAKE 1 TABLET BY MOUTH TWICE A DAY NEEDED FOR ANXIETY FOR 30 DAYS ALLERGIES: ALLERGIES Allergen Reactions Oxycodone Unknown Pregabalin Unknown Nefazodone Other: See Comments VITALS: BP 122/78 Pulse 76 Temp 36.2 ?C (97.2 ?F) Resp 20 Wt 72.6 kg (160 lb 0.9 oz) LMP (LMP Unknown) SpO2 95% BMI 25.83 kg/m? PHYSICAL EXAM: GEN: pleasant, no acute distress, alert HEENT: PERRL, EOMI, MMM NECK: supple, no lymphadenopathy, no thyromegaly (remote incision for thyroidectomy over sternal notch) HEART: regular rate, regular rhythm, no murmurs LUNGS: clear to auscultation, no wheezes or crackles, no increased WOB EXT: no clubbing, no cyanosis, no edema. Normal strength in hand option trader, pincer grasp, and finger abduction. SHOULDER: left compared to right. No deformity or swelling. Palpation of clavicle tender, AC joint tender, glenohumeral joint tender. ROM: able to flex to 90 degrees with pain. Impingement test: Positive Left. Supraspinatus (empty can test): Positive Left. Cross arm test: Positive Right and Positive Left. ASSESSMENT/PLAN: 1. Arthritis of left glenohumeral joint - ICD9: 716.91, ICD10: M19.012 (primary diagnosis) 2. Left shoulder pain, unspecified chronicity - ICD9: 719.41, ICD10: M25.512 - XR SHOULDER GENERAL 3V OR MORE AP/TRUE AP/OTHER LEFT FINDINGS: 3 views of the left shoulder have been obtained. There is no acute fracture. There is advanced degenerative change with narrowing of the glenohumeral joint, slight remodeling of the left humeral head, and inferior medial humeral head osteophyte formation. Mild degenerative change of the AC joint. No gross soft tissue abnormality is seen. IMPRESSION: Degenerative changes with no acute process seen. Shoulder arthritis and possible superimposed rotator cuff tendonopathy. Requests - METHYLPREDNISOLONE 4 MG TABLETS IN A DOSE PACK which has been helpful for joint pain in the past. Advised to not take ibuprofen while taking steroid. Informed of risk for gastritis and risk of fluid retention. - CONSULT TO ORTHOPAEDICS Aj Clement [facility]09-30-2024 History of Present illness Narrative* Aj Clement MD - 07/02/2024 12:57 PM EDT Patient presents with: Pain: Left shoulder pain x 5 weeks HPI: Left shoulder pain: Duration: Started bothering her in the spring a few months ago, flared up worse the last 5 weeks without specific injury Location: left shoulder Character: aching and sharp Radiation: sometimes in the lateral upper arm and neck Aggravating: abduction (hurts to put on deodorant), unable to wash hair with left arm Relieving: Pain relievers: Motrin and Tylenol Associated: fibromyalgia Pertinent negatives: Denies numbness, weakness PAST MEDICAL HISTORY Diagnosis Date ADD (attention deficit disorder) Cardiomyopathy (HCC) Depression Fibromyalgia GERD (gastroesophageal reflux disease) Hyperlipidemia Hypertension MEDICATIONS: empagliflozin (JARDIANCE) 10 mg tablet Take 10 mg by mouth daily with breakfast. metoprolol succinate ER (TOPROL XL) 100 mg Take 1 tablet by mouth every 12 hours. losartan (COZAAR) 100 mg tablet spironolactone (ALDACTONE) 25 mg tablet amLODIPine (NORVASC) 10 mg tablet KAPSPARGO SPRINKLE 25 mg CSpX TAKE 1 CAPSULE BY MOUTH EVERY DAY FOR 90 DAYS rosuvastatin (CRESTOR) 10 mg tablet TAKE 1 TABLET BY MOUTH EVERY DAY FOR 90 DAYS diazePAM (VALIUM) 5 mg tablet TAKE 1 TABLET BY MOUTH TWICE A DAY NEEDED FOR ANXIETY FOR 30 DAYS ALLERGIES: ALLERGIES Allergen Reactions Oxycodone Unknown Pregabalin Unknown Nefazodone Other: See Comments VITALS: BP 122/78 Pulse 76 Temp 36.2 C (97.2 F) Resp 20 Wt 72.6 kg (160 lb 0.9 oz) LMP (LMP Unknown) SpO2 95% BMI 25.83 kg/m PHYSICAL EXAM: GEN: pleasant, no acute distress, alert HEENT: PERRL, EOMI, MMM NECK: supple, no lymphadenopathy, no thyromegaly (remote incision for thyroidectomy over sternal notch) HEART: regular rate, regular rhythm, no murmurs LUNGS: clear to auscultation, no wheezes or crackles, no increased WOB EXT: no clubbing, no cyanosis, no edema. Normal strength in hand option trader, pincer grasp, and finger abduction. SHOULDER: left compared to right. No deformity or swelling. Palpation of clavicle tender, AC joint tender, glenohumeral joint tender. ROM: able to flex to 90 degrees with pain. Impingement test: Positive Left. Supraspinatus (empty can test): Positive Left. Cross arm test: Positive Right and Positive Left. ASSESSMENT/PLAN: 1. Arthritis of left glenohumeral joint - ICD9: 716.91, ICD10: M19.012 (primary diagnosis) 2. Left shoulder pain, unspecified chronicity - ICD9: 719.41, ICD10: M25.512 - XR SHOULDER GENERAL 3V OR MORE AP/TRUE AP/OTHER LEFT FINDINGS: 3 views of the left shoulder have been obtained. There is no acute fracture. There is advanced degenerative change with narrowing of the glenohumeral joint, slight remodeling of the left humeral head, and inferior medial humeral head osteophyte formation. Mild degenerative change of the AC joint. No gross soft tissue abnormality is seen. IMPRESSION: Degenerative changes with no acute process seen. Shoulder arthritis and possible superimposed rotator cuff tendonopathy. Requests - METHYLPREDNISOLONE 4 MG TABLETS IN A DOSE PACK which has been helpful for joint pain in the past. Advised to not take ibuprofen while taking steroid. Informed of risk for gastritis and risk of fluid retention. - CONSULT TO ORTHOPAEDICS Aj Clement MD documented in this encounterPrem[facility]06-24-[facility] History of Present illness Narrative* Jose Armando Ruiz RT(R) - 03/26/2024 1:20 PM EDT Radiology Service Progress Note PATIENT NAME: Laura Weeks DATE OF SERVICE: March 26, 2024 TIME: 1:13 PM PATIENT IDENTITY VERIFICATION COMPLETED USING TWO (2) IDENTIFIERS: Name and Date of confirmedby patient verbally. FALL SCREENING: Has the patient had 2 falls in the last year or 1 fall with injury or currently using an Ambulatory Assistive Device (Walker, Cane, Wheelchair, Crutches, etc.)? No PATIENT GENDER DATA: Female. status: : No status: NO. PATIENT RELEVANT IMPLANT DATA REVIEWED: Not Applicable PATIENT PRESENTS WITH AN IMPLANTABLE OR ATTACHED MOBILE WEB APPLICATION DEVELOPER: No RADIOLOGY DEPARTMENT: General X-ray: Exam(s) Completed: Lower Extremity X- Ray(s): Knee, AP / Lat / Tunne / Merchant Left and Wt. Bearing PERIPHERAL IV DATA: Not applicable SIGNED BY: RT Nona(R) March 26, 2024 1:13 PM documented in this encounterPrem[facility]06-24-2024 NoteHNO ID: [id number] Author: JOSE ARMANDO RUIZ RT(R) Service: Radiology Author Type: Technologist Type: Progress Notes Filed: 03/26/2024 13:24 Note Text: Radiology Service Progress Note PATIENT NAME: Laura Weeks DATE OF SERVICE: March 26, 2024 TIME: 1:13 PM PATIENT IDENTITY VERIFICATION COMPLETED USING TWO (2) IDENTIFIERS: Name and Date of confirmed by patient verbally. FALL SCREENING: Has the patient had 2 falls in the last year or 1 fall with injury or currently using an Ambulatory Assistive Device (Walker, Cane, Wheelchair, Crutches, etc.)? No PATIENT GENDER DATA: Female. status: : No status: NO. PATIENT RELEVANT IMPLANT DATA REVIEWED: Not Applicable PATIENT PRESENTS WITH AN IMPLANTABLE OR ATTACHED MOBILE WEB APPLICATION DEVELOPER: No RADIOLOGY DEPARTMENT: General X-ray: Exam(s) Completed: Lower Extremity X-Ray(s): Knee, AP / Lat / Tunne / Merchant Left and Wt. Bearing PERIPHERAL IV DATA: Not applicable SIGNED BY: RT Nona(Adonis) March 26, 2024 1:13 [facility]06-24-2024 NoteHNO ID: [id number] Author: LOULOU LAU APRN.CASH POSTING SPECIALIST Service: ? Author Type: Nurse Practitioner Type: Progress Notes Filed: 03/26/2024 13:39 Note Text: Subjective Patient came in with complaints of left knee pain. Patient says it started yesterday. Patient says she was playing kickball. Patient says she woke up with it a little swollen. Patient says it hurts to extend and bend. Patient denies any numbness tingling or loss of feeling. The history is provided by the patient. No foreign languages department chair was used. Review of Systems Constitutional: Negative. Skin: Negative. Objective Physical Exam Constitutional: Appearance: Normal appearance. Pulmonary: Effort: Pulmonary effort is normal. Neurological: Mental Status: She is alert. No past medical history on file. No past surgical history on file. ALLERGIES Oxycodone, Pregabalin, and Nefazodone MEDICATIONS metoprolol succinate ER (TOPROL XL) 100 mg Take 1 tablet by mouth every 12 hours. losartan (COZAAR) 100 mg tablet spironolactone (ALDACTONE) 25 mg tablet amLODIPine (NORVASC) 10 mg tablet KAPSPARGO SPRINKLE 25 mg CSpX TAKE 1 CAPSULE BY MOUTH EVERY DAY FOR 90 DAYS rosuvastatin (CRESTOR) 10 mg tablet TAKE 1 TABLET BY MOUTH EVERY DAY FOR 90 DAYS diazePAM (VALIUM) 5 mg tablet TAKE 1 TABLET BY MOUTH TWICE A DAY NEEDED FOR ANXIETY FOR 30 DAYS empagliflozin (JARDIANCE) 10 mg tablet Take 10 mg by mouth daily with breakfast. benzonatate (TESSALON PERLES) 100 mg capsule Take 1 capsule by mouth three times a day as needed. (Patient not taking: Reported on 03/26/2024) fluticasone (FLONASE) 50 mcg/actuation nasal spray Use 2 Sprays in each nostril once daily. Rinse mouth after use. (Patient not taking: Reported on 03/26/2024) gabapentin (NEURONTIN) 100 mg capsule Take 1 capsule by mouth daily at bedtime for 30 days. (Patient not taking: Reported on 09/19/2023) nortriptyline (PAMELOR) 25 mg capsule Take 1 capsule by mouth daily at bedtime. (Patient not taking: Reported on 12/18/2023) fentaNYL (DURAGESIC) 12 mcg/hr pt72 Apply 1 Patch as directed every 72 hours for 30 days. Change after 4 days for first patch and then continue to increase by one day till patches are gone. (Patient not taking: Reported on 09/19/2023) lisinopril (ZESTRIL, PRINIVIL) 20 mg tablet TAKE 1 TABLET BY MOUTH EVERY DAY FOR 90 DAYS (Patient not taking: Reported on 03/26/2024) nortriptyline (PAMELOR) 10 mg capsule Take 1 capsule by mouth daily at bedtime. (Patient not taking: Reported on 09/19/2023) Cetirizine 10 mg cap Take by mouth. (Patient not taking: Reported on 12/18/2023) ferrous sulfate 325 mg (65 mg iron) tablet Take by mouth. (Patient not taking: Reported on 12/18/2023) chlorzoxazone (PARAFON FORTE DSC) 500 mg tablet Take by mouth. (Patient not taking: Reported on 09/19/2023) docusate sodium (DULCOLAX STOOL SOFTENER, DSS,) 100 mg capsule Take by mouth. (Patient not taking: Reported on 03/26/2024) hydroCHLOROthiazide (HYDRODIURIL, ESIDRIX) 12.5 mg capsule hydrochlorothiazide 12.5 mg capsule (Patient not taking: Reported on 03/26/2024) No family history on file. Social History Tobacco Use Smoking status: Former Types: Cigarettes Smokeless tobacco: Never Substance Use Topics Alcohol use: Not Currently Drug use: Never ASSESSMENT/PLAN: 1. Pain - ICD9: 780.96, ICD10: R52 - XR KNEE GENERAL 4V AP BOTH/PA BOTH/LAT/MERC LEFT * * * * Physician Interpretation * * * * EXAMINATION: XR KNEE 4V AP/PA BOTH+LAT/JANET LT CLINICAL HISTORY: Knee pain Technique: XR KNEE 4V AP/PA BOTH+LAT/JANET LT -- LEFT with 4 views on 4 images Comparison: None RESULT: No acute fracture or dislocation. Narrowing of the medial compartment of the right knee and lateral compartment of the left knee. IMPRESSION: No acute osseous abnormality Die Maker Stamping: PAWEL Transcribe Date/Time: Mar 26 2024 1:24P Dictated by : KELSEA RODRÍGUEZ MD Medrol Dosepak prescribed to help with inflammation and irritation. Patient was educated about proper use of medication and supportive therapies. Patient will follow-up in a week to 2 weeks if symptoms or not improving. Patient was okay with this care plan. Loulou Lau APRN.[facility]06-24-2024 History of Present illness Narrative* Loulou Lau APRN.[facility] - 03/26/2024 1:11 PM EDT Subjective Patient came in with complaints of left knee pain. Patient says it started yesterday. Patient says she was playing kickball. Patient says she woke up with it a little swollen. Patient says it hurts to extend and bend. Patient denies any numbness tingling or loss of feeling. The history is provided by the patient. No foreign languages department chair was used. Review of Systems Constitutional: Negative. Skin: Negative. Objective Physical Exam Constitutional: Appearance: Normal appearance. Pulmonary: Effort: Pulmonary effort is normal. Neurological: Mental Status: She is alert. No past medical history on file. No past surgical history on file. ALLERGIES Oxycodone, Pregabalin, and Nefazodone MEDICATIONS metoprolol succinate ER (TOPROL XL) 100 mg Take 1 tablet by mouth every 12 hours. losartan (COZAAR) 100 mg tablet spironolactone (ALDACTONE) 25 mg tablet amLODIPine (NORVASC) 10 mg tablet KAPSPARGO SPRINKLE 25 mg CSpX TAKE 1 CAPSULE BY MOUTH EVERY DAY FOR 90 DAYS rosuvastatin (CRESTOR) 10 mg tablet TAKE 1 TABLET BY MOUTH EVERY DAY FOR 90 DAYS diazePAM (VALIUM) 5 mg tablet TAKE 1 TABLET BY MOUTH TWICE A DAY NEEDED FOR ANXIETY FOR 30 DAYS empagliflozin (JARDIANCE) 10 mg tablet Take 10 mg by mouth daily with breakfast. benzonatate (TESSALON PERLES) 100 mg capsule Take 1 capsule by mouth three times a day as needed. (Patient not taking: Reported on 03/26/2024) fluticasone (FLONASE) 50 mcg/actuation nasal spray Use 2 Sprays in each nostril once daily. Rinse mouth after use. (Patient not taking: Reported on 03/26/2024) gabapentin (NEURONTIN) 100 mg capsule Take 1 capsule by mouth daily at bedtime for 30 days. (Patient not taking: Reported on 09/19/2023) nortriptyline (PAMELOR) 25 mg capsule Take 1 capsule by mouth daily at bedtime. (Patient not taking: Reported on 12/18/2023) fentaNYL (DURAGESIC) 12 mcg/hr pt72 Apply 1 Patch as directed every 72 hours for 30 days. Change after 4 days for first patch and then continue to increase by one day till patches are gone. (Patient not taking: Reported on 09/19/2023) lisinopril (ZESTRIL, PRINIVIL) 20 mg tablet TAKE 1 TABLET BY MOUTH EVERY DAY FOR 90 DAYS (Patient not taking: Reported on 03/26/2024) nortriptyline (PAMELOR) 10 mg capsule Take 1 capsule by mouth daily at bedtime. (Patient not taking: Reported on 09/19/2023) Cetirizine 10 mg cap Take by mouth. (Patient not taking: Reported on 12/18/2023) ferrous sulfate 325 mg (65 mg iron) tablet Take by mouth. (Patient not taking: Reported on 12/18/2023) chlorzoxazone (PARAFON FORTE DSC) 500 mg tablet Take by mouth. (Patient not taking: Reported on 09/19/2023) docusate sodium (DULCOLAX STOOL SOFTENER, DSS,) 100 mg capsule Take by mouth. (Patient not taking: Reported on 03/26/2024) hydroCHLOROthiazide (HYDRODIURIL, ESIDRIX) 12.5 mg capsule hydrochlorothiazide 12.5 mg capsule (Patient not taking: Reported on 03/26/2024) No family history on file. Social History Tobacco Use Smoking status: Former Types: Cigarettes Smokeless tobacco: Never Substance Use Topics Alcohol use: Not Currently Drug use: Never ASSESSMENT/PLAN: 1. Pain - ICD9: 780.96, ICD10: R52 - XR KNEE GENERAL 4V AP BOTH/PA BOTH/LAT/MERC LEFT * * * * Physician Interpretation * * * * EXAMINATION: XR KNEE 4V AP/PA BOTH+LAT/JANET LT CLINICAL HISTORY: Knee pain Technique: XR KNEE 4V AP/PA BOTH+LAT/JANET LT -- LEFT with 4 views on 4 images Comparison: None RESULT: No acute fracture or dislocation. Narrowing of the medial compartment of the right knee and lateral compartment of the left knee. IMPRESSION: No acute osseous abnormality Die Maker Stamping: PAWEL Transcribe Date/Time: Mar 26 2024 1:24P Dictated by : KELSEA RODRÍGUEZ MD Medrol Dosepak prescribed to help with inflammation and irritation. Patient was educated about proper use of medication and supportive therapies. Patient will follow-up in a week to 2 weeks if symptoms or not improving. Patient was okay with this care plan. Loulou Lau APRN.FELIX documented in this encounterPremier Health [facility]03-17-2024 Miscellaneous Notes* Addendum Note - Jia Krueger, OZZIE - 12/18/2023 2:17 PM EDTAddended by: JIA KRUEGER on: 12/18/2023 02:17 PM Modules accepted: Orders documented in this encounterPremier Health [facility]03-17-2024 History of Present illness Narrative* Jia Krueger PA - 12/18/2023 2:14 PM EDT This note was created using [employer]. Subjective Laura Weeks is a 63 year old female. HPI 63-year-old female presents for cough, nasal congestion for a little over a week. Patient states that her cough started about a week ago and is getting worse. She is coughing up some phlegm. She is having some lower rib pain due to coughing so much. She denies any fevers or chills. No history of COPD or asthma. recently was sick with influenza. No other complaint. No past medical history on file. No past surgical history on file. ALLERGIES Oxycodone, Pregabalin, and Nefazodone MEDICATIONS metoprolol succinate ER (TOPROL XL) 100 mg Take 1 tablet by mouth every 12 hours. losartan (COZAAR) 100 mg tablet spironolactone (ALDACTONE) 25 mg tablet amLODIPine (NORVASC) 10 mg tablet fluticasone (FLONASE) 50 mcg/actuation nasal spray Use 2 Sprays in each nostril once daily. Rinse mouth after use. KAPSPARGO SPRINKLE 25 mg CSpX TAKE 1 CAPSULE BY MOUTH EVERY DAY FOR 90 DAYS rosuvastatin (CRESTOR) 10 mg tablet TAKE 1 TABLET BY MOUTH EVERY DAY FOR 90 DAYS lisinopril (ZESTRIL, PRINIVIL) 20 mg tablet TAKE 1 TABLET BY MOUTH EVERY DAY FOR 90 DAYS diazePAM (VALIUM) 5 mg tablet TAKE 1 TABLET BY MOUTH TWICE A DAY NEEDED FOR ANXIETY FOR 30 DAYS docusate sodium (DULCOLAX STOOL SOFTENER, DSS,) 100 mg capsule Take by mouth. hydroCHLOROthiazide (HYDRODIURIL, ESIDRIX) 12.5 mg capsule hydrochlorothiazide 12.5 mg capsule doxycycline (VIBRA-TABS) 100 mg tablet Take 1 tablet by mouth two times a day for 7 days. gabapentin (NEURONTIN) 100 mg capsule Take 1 capsule by mouth daily at bedtime for 30 days. (Patient not taking: Reported on 09/19/2023) nortriptyline (PAMELOR) 25 mg capsule Take 1 capsule by mouth daily at bedtime. (Patient not taking: Reported on 12/18/2023) fentaNYL (DURAGESIC) 12 mcg/hr pt72 Apply 1 Patch as directed every 72 hours for 30 days. Change after 4 days for first patch and then continue to increase by one day till patches are gone. (Patient not taking: Reported on 09/19/2023) nortriptyline (PAMELOR) 10 mg capsule Take 1 capsule by mouth daily at bedtime. (Patient not taking: Reported on 09/19/2023) Cetirizine 10 mg cap Take by mouth. (Patient not taking: Reported on 12/18/2023) ferrous sulfate 325 mg (65 mg iron) tablet Take by mouth. (Patient not taking: Reported on 12/18/2023) chlorzoxazone (PARAFON FORTE DSC) 500 mg tablet Take by mouth. (Patient not taking: Reported on 09/19/2023) No family history on file. Social History Tobacco Use Smoking status: Former Types: Cigarettes Smokeless tobacco: Never Substance Use Topics Alcohol use: Not Currently Drug use: Never Review of Systems Constitutional: Negative for chills and fever. HENT: Positive for congestion, sinus pressure and sinus pain. Negative for ear pain and sore throat. Respiratory: Positive for cough. Negative for shortness of breath. Cardiovascular: Negative for chest pain. Gastrointestinal: Negative for diarrhea and vomiting. Objective BP 112/66 Pulse 78 Temp 36.2 C (97.2 F) Resp 16 Wt 71.3 kg (157 lb 3 oz) LMP (LMP Unknown) SpO2 95% BMI 25.37 kg/m Physical Exam Vitals and nursing note reviewed. Constitutional: General: She is not in acute distress. Appearance: Normal appearance. She is not toxic-appearing. HENT: Right Ear: Tympanic membrane and ear canal normal. Left Ear: Tympanic membrane and ear canal normal. Nose: Congestion present. Right Sinus: Maxillary sinus tenderness present. Left Sinus: Maxillary sinus tenderness present. Mouth/Throat: Mouth: Mucous membranes are moist. Pharynx: No oropharyngeal exudate or posterior oropharyngeal erythema. Eyes: Conjunctiva/sclera: Conjunctivae normal. Cardiovascular: Rate and Rhythm: Normal rate and regular rhythm. Pulmonary: Effort: Pulmonary effort is normal. Breath sounds: Normal breath sounds. No wheezing, rhonchi or rales. Neurological: Mental Status: She is alert. Assessment and Plan ASSESSMENT/PLAN: 1. Sinobronchitis - ICD9: 473.9, 490, ICD10: J32.9, J40 (primary diagnosis) - Will begin treatment with Doxycycline - Supportive care with plenty of fluids, rest, and analgesia prn. 2. Acute cough - ICD9: 786.2, ICD10: R05.1 -Will get XR due to lower rib pain to rule out pneumonia. Patient has no chest pain or shortness ofbreath. - XR CHEST 2V FRONTAL/LAT -No XR available at time of exam. Patient will return tomorrow for XR. -Treating sinusitis with doxycycline. - If CXR does reveal pneumonia, will need to add on Augmentin due to comorbidities. Diagnosis and treatment plan were discussed and questions were answered to the patient's satisfaction. Pt acknowledged understanding of concepts and follow up plan. Specific signs and symptoms that would indicate the need for higher level of care were discussed in detail warranting prompt ER evaluation. OZZIE Villarreal documented in this encounterPrem[facility] History of Present illness Narrative* Sarah Soto, RT(R) - 09/19/2023 2:10 PM EST Radiology Service Progress Note PATIENT NAME: Laura Weeks DATE OF SERVICE: September 19, 2023 TIME: 2:08 PM PATIENT IDENTITY VERIFICATION COMPLETED USING TWO (2) IDENTIFIERS: Name and Date of confirmedby patient verbally. FALL SCREENING: Has the patient had 2 falls in the last year or 1 fall with injury or currently using an Ambulatory Assistive Device (Walker, Cane, Wheelchair, Crutches, etc.)? No PATIENT GENDER DATA: Female. status: : No status: NO. PATIENT RELEVANT IMPLANT DATA REVIEWED: Yes RADIOLOGY DEPARTMENT: General X-ray: Exam(s) Completed: Upper Extremity X- Ray(s): Hand, right PERIPHERAL IV DATA: Not applicable SIGNED BY: RT To(R) September 19, 2023 2:08 PM documented in this encounterPrem[facility]11-03-[facility] History of Present illness Narrative* Estela YohanaRISSA.CASH POSTING SPECIALIST - 08/05/2023 4:18 PM EDT Subjective HPI Laura presents today with a 12 days his of sinus congestion. Nasal congestion,which is thick in nature and a non-productive cough. She is eating and drinking well, denies fever, n/v/d. She states joe was sick a few weeks ago, otherwise not sick contacts. She also states a week ago she was bite by something under her arm, it is red and itchy and bothersome and does not seem to be resolving No past medical history on file. No past surgical history on file. ALLERGIES Oxycodone, Pregabalin, and Nefazodone MEDICATIONS KAPSPARGO SPRINKLE 25 mg CSpX TAKE 1 CAPSULE BY MOUTH EVERY DAY FOR 90 DAYS rosuvastatin (CRESTOR) 10 mg tablet TAKE 1 TABLET BY MOUTH EVERY DAY FOR 90 DAYS lisinopril (ZESTRIL, PRINIVIL) 20 mg tablet TAKE 1 TABLET BY MOUTH EVERY DAY FOR 90 DAYS Cetirizine 10 mg cap Take by mouth. ferrous sulfate 325 mg (65 mg iron) tablet Take by mouth. chlorzoxazone (PARAFON FORTE DSC) 500 mg tablet Take by mouth. diazePAM (VALIUM) 5 mg tablet TAKE 1 TABLET BY MOUTH TWICE A DAY NEEDED FOR ANXIETY FOR 30 DAYS docusate sodium (DULCOLAX STOOL SOFTENER, DSS,) 100 mg capsule Take by mouth. hydroCHLOROthiazide (HYDRODIURIL, ESIDRIX) 12.5 mg capsule hydrochlorothiazide 12.5 mg capsule amoxicillin-clavulanate potassium (AUGMENTIN) 875-125 mg per tablet Take 1 tablet by mouth two times a day for 10 days. hydrocortisone 2.5 % cream Apply 1 application to affected area two times a day for 7 days. Location: Left armpit gabapentin (NEURONTIN) 100 mg capsule Take 1 capsule by mouth daily at bedtime for 30 days. nortriptyline (PAMELOR) 25 mg capsule Take 1 capsule by mouth daily at bedtime. fentaNYL (DURAGESIC) 12 mcg/hr pt72 Apply 1 Patch as directed every 72 hours for 30 days. Change after 4 days for first patch and then continue to increase by one day till patches are gone. nortriptyline (PAMELOR) 10 mg capsule Take 1 capsule by mouth daily at bedtime. No family history on file. Social History Tobacco Use Smoking status: Former Types: Cigarettes Smokeless tobacco: Never Substance Use Topics Alcohol use: Not Currently Drug use: Never Review of Systems HENT: Positive for congestion. Sinus pain Respiratory: Positive for cough. Negative for sputum production and wheezing. Skin: Positive for rash (under left arm). Objective Physical Exam Vitals and nursing note reviewed. Constitutional: General: She is not in acute distress. Appearance: Normal appearance. She is not toxic-appearing. HENT: Head: Normocephalic and atraumatic. Right Ear: Tympanic membrane and ear canal normal. Left Ear: Tympanic membrane and ear canal normal. Nose: Congestion present. No rhinorrhea. Mouth/Throat: Mouth: Mucous membranes are moist. Pharynx: No oropharyngeal exudate or posterior oropharyngeal erythema. Eyes: Extraocular Movements: Extraocular movements intact. Conjunctiva/sclera: Conjunctivae normal. Pupils: Pupils are equal, round, and reactive to light. Cardiovascular: Rate and Rhythm: Normal rate and regular rhythm. Pulses: Normal pulses. Heart sounds: Normal heart sounds. Pulmonary: Effort: Pulmonary effort is normal. No respiratory distress. Breath sounds: Normal breath sounds. No stridor. No wheezing, rhonchi or rales. Chest: Chest wall: No tenderness. Abdominal: General: Abdomen is flat. Palpations: Abdomen is soft. Musculoskeletal: General: Normal range of motion. Cervical back: Normal range of motion and neck supple. Skin: General: Skin is warm and dry. Findings: Rash (raised red papuals under left arm multiple cluster extending the circumfrence of 50cent piece, no drainage or warmth) present. Neurological: General: No focal deficit present. Mental Status: She is alert and oriented to person, place, and time. Psychiatric: Mood and Affect: Mood normal. ASSESSMENT/PLAN: 1. Rash - ICD9: 782.1, ICD10: R21 (primary diagnosis) Hydrocortisone cream bid x 7 days If worsening or no improvement to call Dermatology 2. Sinus congestion - ICD9: 478.19, ICD10: R09.81 Vaporizer Increased fluids Antibiotic Augmentin 3. Nasal congestion - ICD9: 478.19, ICD10: R09.81 Flonase Yohana Palmer APRN.CASH POSTING SPECIALIST documented in this encounterPrem[facility]07-10-2023 Miscellaneous Notes* Telephone Encounter - Lovely Ha RN - 04/11/2023 11:14 AM EDT Information placed in the mail. Lovely Ha RN April 11, 2023 11:15 AM * Telephone Encounter - Greta Tafoya APRN.CNS - 04/11/2023 11:07 AM EDT Please send list of medical marijuana providers to patient * Telephone Encounter - Lovely Ha RN - 04/11/2023 10:27 AM EDT Pt called in today requesting the letter for the medical marijuana doctor. She states that it was discussed at the last office visit. Please advise. Lovely Ha RN April 11, 2023 10:27 AM documented in this encounterPremier [facility]07-07-2023 Miscellaneous Notes* Telephone Encounter - Gerald Esposito MA - 04/08/2023 9:02 AM EDT Items addressed in this encounter: Other I called patient to get April 14 appointment rescheduled due to provider being out of office, no answer I left detailed message for patient to call the office to get her appointment rescheduled. Able to close encounter. Gerald Esposito MA April 08, 2023 9:02 AM 9:02 AM documented in this encounterPremier Health [facility]04-13-2023 NoteHNO ID: [id number] Author: Greta Tafoya APRN.METAL MACHINIST Service: ? Author Type: Clinical Nurse Specialist Type: Progress Notes Filed: 01/13/2023 2:25 PM Note Text: SUBJECTIVE: Laura We[facility] for a follow-up appointment for fibromyalgia pain Last seen by me on 11/11/22 with following plan of care: Continue duragesic 25 mcg/HR patchl. This is max dose from this office. This has continued to hep patient be active in her daily life and to perform house cleaning and cooking. OARRS reviewed and consistent. 09/14/22 UDS +THC. Patient denied using marijuana. She did use CBD gummie with delta 8. Informed patient to stop using this and that she will be random checked at any time in future. If any further issues with UDS, will not longer receive narcotics from this office Continue nortriptyline 10mg one tab daily Continue dulcolax daily Denies signs or symptoms of heart attack or stroke. Instructed to check BP later today and call PCP if still elevated Followup in 1 month Last procedure: 11/11/22 lidocaine infusion Pain level: 7/10 States lidocaine infusions not covered by her insurance States seen at [facility]. Almost done with atb Denies any ED visits or hospitalizations since last office visit Reports pain worse with weather changes, walking too much Reports pain better with heated bed and epsom salt bath Describes pain for fibromyalgia is head to toe aching and flu like sensation States with weather changes has more bone like pain Denies numbness/tingling Denies falls REVIEW OF SYSTEMS: GENERAL: No weight loss, malaise or fevers. HEENT: Negative for frequent or significant headaches. RESPIRATORY: Negative for cough, wheezing or shortness of breath. CARDIOVASCULAR: Negative for chest pain, leg swelling or palpitations. GI: Negative for abdominal discomfort, blood in stools or black stools or change in bowel habits. :denies issues Past Medical History: History reviewed. No pertinent past medical history. Past Surgical History: History reviewed. No pertinent surgical history. Family History: History reviewed. No pertinent family history. Social History: Social History Tobacco Use Smoking status: Former Types: Cigarettes Smokeless tobacco: Never Substance Use Topics Alcohol use: Not Currently Drug use: Never OBJECTIVE: BP 186/113 Pulse 88 Resp 19 Ht 5' 6 (1.68m) Wt 150 lb (68.0kg) SpO2 96% BMI 24.22 kg/(m2). PHYSICAL EXAMINATION: General appearance: Well appearing, in no acute distress, alert. Psych: Mood and affect appropriate. Skin: pink, warm, and dry Pulm: no conversational shortness of breath GI: Abdomen soft and non-tender. Musculoskeletal: Lumbar range of motion with mild restriction with flexion and extension. Negative straight leg raise from sitting position bilaterally. Negative MARCUS sign on right. Positive on left. 5/5 bilateral lower extremity muscle strength. Fentanyl patch left chest ASSESSMENT: (M79.7) Fibromyalgia (primary encounter diagnosis) (G89.4) Chronic pain syndrome (Z79.899) High risk medication use PLAN: 12/09/22 UDS +THC. States she used CBD gummie with delta 8 After previous UDS +THC informed patient will not continue to prescribe narcotics if +THC. Decrease fentanyl 12mcg/hr. Change 4 days then increase by one day for each patch change until gone. OARRS reviewed and consistent Continue nortriptyline 10mg one tab daily Continue dulcolax daily Denies signs or symptoms of heart attack or stroke. Instructed to check BP later today and call PCP if still elevated Allergy to lyrica Prescribe gabapentin 100mg one tab at bedtime daily Informed patient that if she desires a plan of care with narcotics, she can contact her PCP and be referred to another pain management Denies signs or symptoms or heart attack or stroke. Instructed to check BP later today and if elevated, to contact her PCP Followup in 3 months The above plan and management options were discussed at length with the patient. The patient is in agreement with the above and verbalized understanding. Greta Tafoya APRN.JENNIFER January 13, 2023[facility]04-13[facility] Instructions* Patient Instructions * Greta Tafoya APRN.METAL MACHINIST - 01/13/2023 2:09 PM EDT 12/09/22 UDS +THC. States she used CBD gummie with delta 8 After previous UDS +THC informed patient will not continue to prescribe narcotics if +THC. Decrease fentanyl 12mcg/hr. Change 4 days then increase by one day for each patch change until gone. OARRS reviewed and consistent Continue nortriptyline 10mg one tab daily Continue dulcolax daily Denies signs or symptoms of heart attack or stroke. Instructed to check BP later today and call PCPif still elevated Allergy to lyrica Prescribe gabapentin 100mg one tab at bedtime daily Informed patient that if she desires a plan of care with narcotics, she can contact her PCP and be referred to another pain management Denies signs or symptoms or heart attack or stroke. Instructed to check BP later today and if elevated, to contact her PCP Followup in 3 months documented in this encounterPrem[facility]04-13-[facility]23 History of Past illness Narrative* Problem Noted Date Diagnosed Date Resolved Date Sepsis 01/13/2023 06/11/2023 documented as of this encounter (statuses as of 08/06/2023) [facility]04-13-[facility] History of Past illness Narrative* Problem Noted Date Diagnosed Date Resolved Date Sepsis 01/13/2023 06/11/2023 documented as of this encounter (statuses as of 12/18/2023) [facility]04-13-[facility] History of Present illness Narrative* Greta Tafoya APRN.METAL MACHINIST - 01/13/2023 2:00 PM EDT SUBJECTIVE: Laura Weeks [facility] for a follow-up appointment for fibromyalgia pain Last seen by me on 11/11/22 with following plan of care: Continue duragesic 25 mcg/HR patchl. This is max dose from this office. This has continued to hep patient be active in her daily life and to perform house cleaning and cooking. OARRS reviewed and consistent. 09/14/22 UDS +THC. Patient denied using marijuana. She did use CBD gummie with delta 8. Informed patient to stop using this and that she will be random checked at any time in future. If any further issues with UDS, will not longer receive narcotics from this office Continue nortriptyline 10mg one tab daily Continue dulcolax daily Denies signs or symptoms of heart attack or stroke. Instructed to check BP later today and call PCPif still elevated Followup in 1 month Last procedure: 11/11/22 lidocaine infusion Pain level: 7/10 States lidocaine infusions not covered by her insurance States seen at [facility]. Almost done with atb Denies any ED visits or hospitalizations since last office visit Reports pain worse with weather changes, walking too much Reports pain better with heated bed and epsom salt bath Describes pain for fibromyalgia is head to toe aching and flu like sensation States with weather changes has more bone like pain Denies numbness/tingling Denies falls REVIEW OF SYSTEMS: GENERAL: No weight loss, malaise or fevers. HEENT: Negative for frequent or significant headaches. RESPIRATORY: Negative for cough, wheezing or shortness of breath. CARDIOVASCULAR: Negative for chest pain, leg swelling or palpitations. GI: Negative for abdominal discomfort, blood in stools or black stools or change in bowel habits. :denies issues Past Medical History: History reviewed. No pertinent past medical history. Past Surgical History: History reviewed. No pertinent surgical history. Family History: History reviewed. No pertinent family history. Social History: Social History Tobacco Use Smoking status: Former Types: Cigarettes Smokeless tobacco: Never Substance Use Topics Alcohol use: Not Currently Drug use: Never OBJECTIVE: BP 186/113 Pulse 88 Resp 19 Ht 5' 6 (1.68m) Wt 150 lb (68.0kg) SpO2 96% BMI24.22 kg/(m^2). PHYSICAL EXAMINATION: General appearance: Well appearing, in no acute distress, alert. Psych: Mood and affect appropriate. Skin: pink, warm, and dry Pulm: no conversational shortness of breath GI: Abdomen soft and non-tender. Musculoskeletal: Lumbar range of motion with mild restriction with flexion and extension. Negative straight leg raise from sitting position bilaterally. Negative MARCUS sign on right. Positive on left. 5/5 bilateral lower extremity muscle strength. Fentanyl patch left chest ASSESSMENT: (M79.7) Fibromyalgia (primary encounter diagnosis) (G89.4) Chronic pain syndrome (Z79.899) High risk medication use PLAN: 12/09/22 UDS +THC. States she used CBD gummie with delta 8 After previous UDS +THC informed patient will not continue to prescribe narcotics if +THC. Decrease fentanyl 12mcg/hr. Change 4 days then increase by one day for each patch change until gone. OARRS reviewed and consistent Continue nortriptyline 10mg one tab daily Continue dulcolax daily Denies signs or symptoms of heart attack or stroke. Instructed to check BP later today and call PCPif still elevated Allergy to lyrica Prescribe gabapentin 100mg one tab at bedtime daily Informed patient that if she desires a plan of care with narcotics, she can contact her PCP and be referred to another pain management Denies signs or symptoms or heart attack or stroke. Instructed to check BP later today and if elevated, to contact her PCP Followup in 3 months The above plan and management options were discussed at length with the patient. The patient is in agreement with the above and verbalized understanding. Greta Tafoya APRN.CNS January 13, 2023 documented in this encounterPrem[facility]04-11-2023 Miscellaneous Notes* Telephone Encounter - Lovely Ha RN - 01/11/2023 2:51 PM EDT Pt called with information below. Call was transferred to central scheduling for a sooner appt. Lovely Ha RN January 11, 2023 2:53 PM * Telephone Encounter - Greta Tafoya APRN.CNS - 01/11/2023 2:40 PM EDT UDS +THC. Refused refill due to this. She can make an earlier appointment to discuss. Narcotics will be discontinued. * Telephone Encounter - Lovely Ha RN - 01/11/2023 1:39 PM EDT Patient phones requesting refills as follows: Requested Prescriptions Pending Prescriptions Disp Refills fentaNYL (DURAGESIC) 25 mcg/hr 10 Patch 0 Sig: Apply 1 Patch as directed every 72 hours for 30 days. Last UDS: Summary Report Date Value Ref Range Status 12/10/2022 FINAL Final Comment: Cannabinoids, MS, Ur RFX Acetaminophen, MS, Ur RFX ToxAssure Flex 23, Ur Test Result Flag Units Drug Present Desmethyldiazepam 2531 ng/mg creat Oxazepam 3396 ng/mg creat Temazepam 3400 ng/mg creat Desmethyldiazepam, oxazepam, and temazepam are benzodiazepine drugs, but may also be present as common metabolites of other benzodiazepine drugs, including diazepam. Carboxy-THC 85 ng/mg creat Carboxy-THC is a metabolite of tetrahydrocannabinol (THC). Source of THC is most commonly herbal marijuana or marijuana-based products, but THC is also present in a scheduled prescription medication. Trace amounts of THC can be present in hemp and cannabidiol (CBD) products. This test is not intended to distinguish between lqysp-3-gijselmtrmqopcccofbi, the predominant form of THC in most herbal or marijuana-based products, and qvbob-0-olhelrpdyxxyuyakauzf. Fentanyl 9 ng/mg creat Norfentanyl 93 ng/mg creat Source of fentanyl is a scheduled prescription medication, including IV, patch, and transmucosal formulations. Norfentanyl is an expected metabolite of fentanyl. Acetaminophen PRESENT Dextromethorphan PRESENT Dextrorphan/Levorphanol PRESENT Dextrorphan is an expected metabolite of dextromethorphan, an aeka-uer-dtqrpzr or prescription cough suppressant. Dextrorphan cannot be distinguished from the scheduled prescription medication levorphanol by the method used for analysis. Test Result Flag Units Ref Range Creatinine 55 mg/dL >=20 Declared Medications: Medication list was not provided. For clinical consultation, please call . @FLOW([id number])@ Lab Results Component Value Date SUMM FINAL 12/10/2022 No results found for: SUMMAR Please review and advise. Lovely Ha RN documented in this encounterPremier Health [facility]03-13-2023 Miscellaneous Notes* Telephone Encounter - Griselda Borrego RN - 12/13/2022 8:32 AM EDT Pt submitted Uds on Tuesday. Griselda Borrego RN December 13, 2022 8:32 AM * Telephone Encounter - Lovely Ha RN - 12/08/2022 1:16 PM EST Pt called and informed of the information below. Lovely Ha RN December 08, 2022 1:16 PM * Telephone Encounter - Greta Tafoya APRN.CNS - 12/08/2022 12:56 PM EST I thought her has COVID. She can come by Tuesday but no later. * Telephone Encounter - Lovely Ha RN - 12/08/2022 12:48 PM EST Pt called back in stating that he cannot get her here for the UDS until Tuesday afternoon. Please advise. Lovely Ha RN December 08, 2022 12:48 PM * Telephone Encounter - Shona Fowler RN - 12/08/2022 11:56 AM EST Pt notified said that her has covid but was going to try to come today Shona Fowler RN December 08, 2022 11:59 AM * Telephone Encounter - Greta Tafoya APRN.CNS - 12/08/2022 11:31 AM EST Will keep the appointment in January. Call patient to come to office for UDS * Telephone Encounter - Greta Tafoya APRN.CNS - 12/08/2022 11:31 AM EST The following approved medication requests have been transmitted electronically. Requested Prescriptions Signed Prescriptions Disp Refills fentaNYL (DURAGESIC) 25 mcg/hr 10 Patch 0 Sig: Apply 1 Patch as directed every 72 hours for 30 days. Do not start before December 11, 2022. Authorizing Provider: GRETA TAFOYA APRN.CNS * Telephone Encounter - Shona Fowler RN - 12/08/2022 10:27 AM EST Last ov was 11/11/22, with poc to be seen in 1 month, pt was scheduled 02/09/23, please advise appt and refill Shona Fowler RN December 08, 2022 10:28 AM documented in this encounterPremier Health [facility]02-09-2023 NoteHNO ID: [id number] Author: Greta Tafoya APRN.METAL MACHINIST Service: ? Author Type: Clinical Nurse Specialist Type: Progress Notes Filed: 11/11/2022 3:03 PM Note Text: SUBJECTIVE: Laura Weeks [facility] for a follow-up appointment for fibromyalgia pain and Uds results Last seen by me on 09/14/22 with plan of care including:duragesic patch, nortriptyline, dulcoclax, CBD gummies, UDS Last procedure 11/18/21 lidocaine infusion Pain level:8-9/10 Patient informed Fidel DHILLON on intake that she was smoking marijuana when pain was too bad in evenings. Patient denied this to provider and stated she only used CBD gummies with Delta 8 States she was started on statin and BP pill from PCP Denies any ED visits or hospitalizations since last office visit Worse: weather changes, walking too much Better: medication, CBD gummies, rest Describes pain for fibromyalgia is head to toe aching and flu like sensation States with weather changes has more bone like pain States left hip was smashed from old injury. States she has intermittent to constant ache Denies numbness/tingling Denies falls REVIEW OF SYSTEMS: GENERAL: No weight loss, malaise or fevers. HEENT: Negative for frequent or significant headaches. RESPIRATORY: Negative for cough, wheezing or shortness of breath. CARDIOVASCULAR: Negative for chest pain, leg swelling or palpitations. GI: Negative for abdominal discomfort, blood in stools or black stools or change in bowel habits. : denies issues Past Medical History: No past medical history on file. Past Surgical History: No past surgical history on file. Family History: No family history on file. Social History: Social History Tobacco Use Smoking status: Former Types: Cigarettes Smokeless tobacco: Never Substance Use Topics Alcohol use: Not Currently Drug use: Never OBJECTIVE: There were no vitals taken for this visit. PHYSICAL EXAMINATION: General appearance: Well appearing, in no acute distress, alert. Psych: Mood and affect appropriate. Skin: Skin color, texture, turgor normal, no rashes or lesions. Pulm: no conversational shortness of breath GI: Abdomen soft and non-tender. Musculoskeletal: Lumbar range of motion with mild restriction with flexion and extension. Negative straight leg raise from sitting position bilaterally. Negative MARCUS sign on right. Positive on left. 5/5 bilateral lower extremity muscle strength. Fentanyl patch left chest ASSESSMENT: Visit dx Chronic pain syndrome Generalized osteoarthritis (primary encounter diagnosis) Fibromyalgia High risk medication use PLAN: Continue duragesic 25 mcg/HR patchl. This is max dose from this office. This has continued to hep patient be active in her daily life and to perform house cleaning and cooking. OARRS reviewed and consistent. 09/14/22 UDS +THC. Patient denied using marijuana. She did use CBD gummie with delta 8. Informed patient to stop using this and that she will be random checked at any time in future. If any further issues with UDS, will not longer receive narcotics from this office Continue nortriptyline 10mg one tab daily Continue dulcolax daily Denies signs or symptoms of heart attack or stroke. Instructed to check BP later today and call PCP if still elevated Followup in 1 month The above plan and management options were discussed at length with the patient. The patient is in agreement with the above and verbalized understanding. Greta Tafoya APRN.JENNIFER November 11, 2022[facility]02-09-[facility]23 Instructions* Patient Instructions* Greta Tafoya APRN.METAL MACHINIST - 11/11/2022 2:50 PM EST Continue duragesic 25 mcg/HR patchl. This is max dose from this office. This has continued to hep patient be active in her daily life and to perform house cleaning and cooking. OARRS reviewed and consistent. 09/14/22 UDS +THC. Patient denied using marijuana. She did use CBD gummie with delta 8. Informed patient to stop using this and that she will be random checked at any time in future. If any further issues with UDS, will not longer receive narcotics from this office Continue nortriptyline 10mg one tab daily Continue dulcolax daily Denies signs or symptoms of heart attack or stroke. Instructed to check BP later today and call PCPif still elevated Followup in 1 month [facility] History of Present illness Narrative* Greta Tafoya APRN.CNS - 11/11/2022 2:45 PM EST SUBJECTIVE: Laura Weeks [facility] for a follow-up appointment for fibromyalgia pain and Uds results Last seen by me on 09/14/22 with plan of care including:duragesic patch, nortriptyline, dulcoclax, CBD gummies, UDS Last procedure 11/18/21 lidocaine infusion Pain level:8-9/10 Patient informed Fidel DHILLON on intake that she was smoking marijuana when pain was too bad in evenings. Patient denied this to provider and stated she only used CBD gummies with Delta 8 States she was started on statin and BP pill from PCP Denies any ED visits or hospitalizations since last office visit Worse: weather changes, walking too much Better: medication, CBD gummies, rest Describes pain for fibromyalgia is head to toe aching and flu like sensation States with weather changes has more bone like pain States left hip was smashed from old injury. States she has intermittent to constant ache Denies numbness/tingling Denies falls REVIEW OF SYSTEMS: GENERAL: No weight loss, malaise or fevers. HEENT: Negative for frequent or significant headaches. RESPIRATORY: Negative for cough, wheezing or shortness of breath. CARDIOVASCULAR: Negative for chest pain, leg swelling or palpitations. GI: Negative for abdominal discomfort, blood in stools or black stools or change in bowel habits. : denies issues Past Medical History: No past medical history on file. Past Surgical History: No past surgical history on file. Family History: No family history on file. Social History: Social History Tobacco Use Smoking status: Former Types: Cigarettes Smokeless tobacco: Never Substance Use Topics Alcohol use: Not Currently Drug use: Never OBJECTIVE: There were no vitals taken for this visit. PHYSICAL EXAMINATION: General appearance: Well appearing, in no acute distress, alert. Psych: Mood and affect appropriate. Skin: Skin color, texture, turgor normal, no rashes or lesions. Pulm: no conversational shortness of breath GI: Abdomen soft and non-tender. Musculoskeletal: Lumbar range of motion with mild restriction with flexion and extension. Negative straight leg raise from sitting position bilaterally. Negative MARCUS sign on right. Positive on left. 5/5 bilateral lower extremity muscle strength. Fentanyl patch left chest ASSESSMENT: Visit dx Chronic pain syndrome Generalized osteoarthritis (primary encounter diagnosis) Fibromyalgia High risk medication use PLAN: Continue duragesic 25 mcg/HR patchl. This is max dose from this office. This has continued to hep patient be active in her daily life and to perform house cleaning and cooking. OARRS reviewed and consistent. 09/14/22 UDS +THC. Patient denied using marijuana. She did use CBD gummie with delta 8. Informed patient to stop using this and that she will be random checked at any time in future. If any further issues with UDS, will not longer receive narcotics from this office Continue nortriptyline 10mg one tab daily Continue dulcolax daily Denies signs or symptoms of heart attack or stroke. Instructed to check BP later today and call PCPif still elevated Followup in 1 month The above plan and management options were discussed at length with the patient. The patient is in agreement with the above and verbalized understanding. Greta Tafoya APRN.CNS November 11, 2022 documented in this encounter[facility] Miscellaneous Notes* Telephone Encounter - Jessica Pan RN - 11/09/2022 10:24 AM EST Telephone call to pt: Pt aware of below and states that providers are awaare that she uses the gummies that she gets @ the store. Call transferred to project executive for sooner appt and acknowledges to contact [facility] with any questions or concerns. Jessica Pan RN November 09, 2022 10:28 AM * Telephone Encounter - Greta Tafoya APRN.CNS - 11/08/2022 4:40 PM EST UDS +large quantity of THC. Declined refill of fentanyl. Can schedule and earlier appt if desires. * Telephone Encounter - Jessica Alvarado Maxim, RN - 11/08/2022 1:30 PM EST Patient phones requesting refills as follows: Requested Prescriptions Pending Prescriptions Disp Refills fentaNYL (DURAGESIC) 25 mcg/hr 10 Patch 0 Sig: Apply 1 Patch as directed every 72 hours for 30 days. Last UDS: Summary Report Date Value Ref Range Status 09/14/2022 FINAL Final Comment: Cannabinoids, MS, Ur RFX ToxAssure Flex 23, Ur Test Result Flag Units Drug Present Desmethyldiazepam 241 ng/mg creat Oxazepam 1297 ng/mg creat Temazepam 235 ng/mg creat Desmethyldiazepam, oxazepam, and temazepam are benzodiazepine drugs, but may also be present as common metabolites of other benzodiazepine drugs, including diazepam. Carboxy-THC >2703 ng/mg creat Carboxy-THC is a metabolite of tetrahydrocannabinol (THC). Source of THC is most commonly herbal marijuana or marijuana-based products, but THC is also present in a scheduled prescription medication. Trace amounts of THC can be present in hemp and cannabidiol (CBD) products. This test is not intended to distinguish between ufdcb-[id number], the predominant form of THC in most herbal or marijuana-based products, and edplb-6-[id number]. Fentanyl 16 ng/mg creat Norfentanyl 84 ng/mg creat Source of fentanyl is a scheduled prescription medication, including IV, patch, and transmucosal formulations. Norfentanyl is an expected metabolite of fentanyl. Test Result Flag Units Ref Range Creatinine 37 mg/dL >=20 Declared Medications: Medication list was not provided. For clinical consultation, please call . @FLOW([id number])@ Lab Results Component Value Date SUMM FINAL 09/14/2022 No results found for: SUMMAR Please review and advise. Jessica Pan RN documented in this encounterPrem[facility]12-13-2022 NoteHNO ID: [id number] Author: Greta Tafoya APRN.METAL MACHINIST Service: ? Author Type: Clinical Nurse Specialist Type: Progress Notes Filed: 09/14/2022 8:49 AM Note Text: Patient was last seen on 05/13/22 for fibromyalgia pain Last procedure 11/18/21 lidocaine infusion Plan of care: Continue Duragesic 25 Mcg/hr Patch. Pt. is at max dose for the office 12/01/21 witnessed UDS low fentanyl level and small amt THC Continue CBD gummies Continue Dulcolax daily Continue nortriptyline 25mg po daily prior to bedtime Keep active as possible Encouraged to perform HEP daily Denies signs or symptoms of heart attack or stroke. Instructed to check BP later today and call PCP if still elevated F/U in 3 months in office Pain level 4-5/10 States she had bilateral cataract removal done recently Able to drive now States she has elevated BP lately Denies any ED visits or hospitalizations since last office visit Worse: weather changes, walking too much Better: medication, CBD gummies, rest Describes pain for fibromyalgia is head to toe aching and flu like sensation States with weather changes has more bone like pain States left hip was smashed from old injury. States she has intermittent to constant ache Denies numbness/tingling Denies falls Denies any issues with bowels or bladder Denies nausea or vomting Denies dizziness States has headaches on rare occasion. States she is cutting back on caffeine which is contributing to headaches Physical assessment: Alert and oriented x3. Skin pink, warm, dry. No conversational shortness of breath appreciated. Wearing facemask. Mood Pleasant and cooperative. Able to ascend and descend from sitting position without any difficulty. Fentanyl patch on the right chest. Lumbar range of motion with mild restriction with flexion and extension. Negative straight leg raise from sitting position bilaterally. Negative MARCUS sign on right. Positive on left. 5/5 bilateral lower extremity muscle strength.[facility]12-13-20[facility] Instructions* Patient Instructions* Greta Tafoya APRN.METAL MACHINIST - 09/14/2022 8:42 AM EST Cnotinue duragesic 25 mcg/HR patchl. This is max dose from this office. This has continued to hep patient be active in her daily life and to perform house cleaning and cooking. OARRS reviewed and consistent. UDS reviewed and consistent. Order UDS Sign pain contract Decrease nortriptyline 10mg one tab daily at HS per patient's request to not be too sedated. Continue CBD gummies Continue dulcolax daily Denies signs or symptoms of heart attack or stroke. Instructed to check BP later today and call PCPif still elevated Followup in 3 monthss documented in this encounterPrem[facility]12-13-2022 History of Present illness Narrative* Greta Tafoya APRN.CNS - 09/14/2022 8:00 AM EST Patient was last seen on 05/13/22 for fibromyalgia pain Last procedure 11/18/21 lidocaine infusion Plan of care: Continue Duragesic 25 Mcg/hr Patch. Pt. is at max dose for the office 12/01/21 witnessed UDS low fentanyl level and small amt THC Continue CBD gummies Continue Dulcolax daily Continue nortriptyline 25mg po daily prior to bedtime Keep active as possible Encouraged to perform HEP daily Denies signs or symptoms of heart attack or stroke. Instructed to check BP later today and call PCPif still elevated F/U in 3 months in office Pain level 4-5/10 States she had bilateral cataract removal done recently Able to drive now States she has elevated BP lately Denies any ED visits or hospitalizations since last office visit Worse: weather changes, walking too much Better: medication, CBD gummies, rest Describes pain for fibromyalgia is head to toe aching and flu like sensation States with weather changes has more bone like pain States left hip was smashed from old injury. States she has intermittent to constant ache Denies numbness/tingling Denies falls Denies any issues with bowels or bladder Denies nausea or vomting Denies dizziness States has headaches on rare occasion. States she is cutting back on caffeine which is contributingto headaches Physical assessment: Alert and oriented x3. Skin pink, warm, dry. No conversational shortness of breath appreciated. Wearing facemask. Mood Pleasant and cooperative. Able to ascend and descend from sitting position without any difficulty. Fentanyl patch on the right chest. Lumbar range of motion with mild restriction with flexion and extension. Negative straight leg raise from sitting position bilaterally. Negative MARCUS sign on right. Positive on left. 5/5 bilateral lower extremity muscle strength. documented in this encounterPrem[facility]12-07-2022 Miscellaneous Notes* Telephone Encounter - Greta Tafoya APRN.JENNIFER - 09/08/2022 11:22 AM EST The following approved medication requests have been transmitted electronically. Requested Prescriptions Signed Prescriptions Disp Refills fentaNYL (DURAGESIC) 25 mcg/hr 10 Patch 0 Sig: Apply 1 Patch as directed every 72 hours for 30 days. Do not start before September 12, 2022. Authorizing Provider: GRETA TAFOYA APRN.CNS * Telephone Encounter - Griselda Borrego RN - 09/08/2022 10:12 AM EST Patient phones requesting refills as follows: Requested Prescriptions Pending Prescriptions Disp Refills fentaNYL (DURAGESIC) 25 mcg/hr 10 Patch 0 Sig: Apply 1 Patch as directed every 72 hours for 30 days. Please review and advise. Griselda Borrego RN documented in this encounterPrem[facility]11-09-2022 Miscellaneous Notes* Telephone Encounter - Greta Tafoya APRN.JENNIFER - 08/11/2022 10:15 AM EST The following approved medication requests have been transmitted electronically. Requested Prescriptions Signed Prescriptions Disp Refills fentaNYL (DURAGESIC) 25 mcg/hr 10 Patch 0 Sig: Apply 1 Patch as directed every 72 hours for 30 days. Do not start before August 13, 2022. Authorizing Provider: GRETA TAFOYA APRN.CNS * Telephone Encounter - Griselda Borrego RN - 08/11/2022 9:51 AM EST Patient phones requesting refills as follows: Requested Prescriptions Pending Prescriptions Disp Refills fentaNYL (DURAGESIC) 25 mcg/hr 10 Patch 0 Sig: Apply 1 Patch as directed every 72 hours for 30 days. Please review and advise. Griselda Elmo, RN documented in this encounterPrem[facility]10-12-2022 Miscellaneous Notes* Telephone Encounter - Greta Tafoya APRN.METAL MACHINIST - 07/14/2022 10:31 AM EDT The following approved medication requests have been transmitted electronically. Requested Prescriptions Signed Prescriptions Disp Refills fentaNYL (DURAGESIC) 25 mcg/hr 10 Patch 0 Sig: Apply 1 Patch as directed every 72 hours for 30 days. 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 They are asking if the script can be sent to [facility] in [place] per pt request. She is due to fill today. Script voided at [facility]. Please advise. Pt requesting refill as follows Requested Prescriptions Pending Prescriptions Disp Refills fentaNYL (DURAGESIC) 25 mcg/hr 10 Patch 0 Sig: Apply 1 Patch as directed every 72 hours for 30 days. Please review and advise. Lovely Ha RN documented in this encounterPrem[facility]10-06-2022 Miscellaneous Notes* Telephone Encounter - Kofi Fishman DO - 07/08/2022 11:23 PM EDT The following approved medication requests have been transmitted electronically. Requested Prescriptions Pending Prescriptions Disp Refills fentaNYL (DURAGESIC) 25 mcg/hr 10 Patch 0 Sig: Apply 1 Patch as directed every 72 hours for 30 days. Do not start before July 13, 2022. Kofi Fishman DO * Telephone Encounter - Luzmaria Lobo RN - 07/08/2022 2:54 PM EDT Patient phones requesting refills as follows: Requested Prescriptions Pending Prescriptions Disp Refills fentaNYL (DURAGESIC) 25 mcg/hr 10 Patch 0 Sig: Apply 1 Patch as directed every 72 hours for 30 days. Please review and advise. Luzmaria Lobo RN documented in this encounterPrem[facility]09-07-2022 Miscellaneous Notes* Telephone Encounter - Greta Tafoya APRN.METAL MACHINIST - 06/09/2022 3:36 PM EDT The following approved medication requests have been transmitted electronically. Requested Prescriptions Signed Prescriptions Disp Refills fentaNYL (DURAGESIC) 25 mcg/hr 10 Patch 0 Sig: Apply 1 Patch as directed every 72 hours for 30 days. Do not start before June 12, 2022. Authorizing Provider: GRETA TAFOYA APRN.JENNIFER * Telephone Encounter - Griselda Borrego RN - 06/09/2022 1:07 PM EDT Patient phones requesting refills as follows: Requested Prescriptions Pending Prescriptions Disp Refills fentaNYL (DURAGESIC) 25 mcg/hr 10 Patch 0 Sig: Apply 1 Patch as directed every 72 hours for 30 days. Please review and advise. Griselda Borrego RN documented in this encounterPrem[facility] Health [facility]08-10-2022 NoteHNO ID: [id number] Author: Greta Tafoya APRN.METAL MACHINIST Service: ? Author Type: Clinical Nurse Specialist Type: Progress Notes Filed: 05/13/2022 3:47 PM Note Text: Patient was last seen by me on 03/05/2022 for fibromyalgia pain Last procedure 11/18/21 lidocaine infusion Plan of care: 1) Continue Duragesic 25 Mcg/hr Patch. Pt. is at max dose for the office 2) 12/01/21 witnessed UDS low fentanyl level and small amt THC 3) Continue CBD gummies 4) Continue Dulcolax daily 5) Increase nortriptyline 25mg po daily prior to bedtime 6) Keep active as possible 7) Encouraged to perform HEP daily 8) Encouraged to keep appt for lidocaine infusion on 12/16/21 9) Denies signs or symptoms of heart attack or stroke. Instructed to check BP later today and call PCP if still elevated 10) F/U in 1-2 months in office Pain level:01/10 States lidocaine infusions cost too much out of pocket to continue treatment Denies any ED visits or hospitalizations since last office visit Reports pain worse with any activity and rain Reports pain better with tylenol, duragesic patch, CBD gummies Describes pain for fibromyalgia is head to toe aching and flu like sensation States Intermittent left hip ache and lower right leg which is more intense at times Denies numbness/tingling Denies falls Denies any issues with bowels or bladder Denies nausea or vomting Denies dizziness unless gets up too fast States has headaches on rare occasion Physical assessment: Alert and oriented x3 Skin pink, warm, and dry. No conversational shortness of breath appreciated. Wearing face mask Mood pleasant Able to descend and ascend from the chair without any difficulties fentanyl patch on right breast 5/5 motor strength of the bilateral upper and lower extremities. Negative straight leg raise in seated position. Cervical range of motion normal. Patient is right-hand dominant. Rubber Off strength testing equal bilaterally.Lumbar flexion greater than 90? and extension at 10- 15?. Diminished sensation in the right lateral leg surgical incision with light touch.[facility]07-11-2022 Miscellaneous Notes* Telephone Encounter - Greta Tafoya APRN.METAL MACHINIST - 04/12/2022 7:56 AM EDT The following approved medication requests have been transmitted electronically. Signed Prescriptions Disp Refills fentaNYL (DURAGESIC) 25 mcg/hr 10 Patch 0 Sig: Apply 1 Patch as directed every 72 hours for 30 days. MIKEY Class: C-II COLIN: No Authorizing Provider: GRETA TAFOYA APRN.METAL MACHINIST * Telephone Encounter - Luzmaria Lobo RN - 04/09/2022 12:52 PM EDT Patient phones requesting refills as follows: Pending Prescriptions Disp Refills FENTANYL 25 MCG/HR TRANSDERMAL PATCH 10 Patch 0 Sig: Apply 1 Patch as directed every 72 hours for 30 days. MIKEY Class: C-II COLIN: No Please review and advise. Luzmaira Lobo RN [facility] Diagnosis Chronic pain syndrome- Primary documented in this encounter [facility] note* Diagnosis Chronic pain syndrome documented in this encounter [facility] note* Diagnosis Chronic pain syndrome documented in this encounter [facility] note* Diagnosis Chronic pain disorder- Primary Chronic pain syndrome Fibromyositis Mylagia and myositis, unspecified Generalized osteoarthritis Generalized osteoarthrosis, unspecified site High risk medication use Encounter for long-term (current) use of other medications Chronic pain syndrome documented in this encounter [facility] note* Diagnosis Generalized osteoarthritis- Primary Generalized osteoarthrosis, unspecified site Chronic pain syndrome Fibromyalgia Mylagia and myositis, unspecified High risk medication use Encounter for long-term (current) use of other medications documented in this encounter [facility] note* Diagnosis High risk medication use- Primary Encounter for long-term (current) use of other medications Chronic pain syndrome documented in this encounter [facility] note* Diagnosis Onset Date Resolution Status Acute bronchitis acute Dysuria [facility] Work Phone: Evaluation note* Diagnosis Chronic pain syndrome documented in this encounter [facility] note* Diagnosis Fibromyalgia- Primary Mylagia and myositis, unspecified Chronic pain syndrome High risk medication use Encounter for long-term (current) use of other medications documented in this encounter [facility] note* Diagnosis Onset Date Resolution Status Dysuria acute [facility] Work Phone: Evaluation note* Diagnosis Onset Date Resolution Status Acute upper respiratory infection acute Dysuria acute Abnormal cardiovascular stress test acute Dyslipidemia chronic Fibromyalgia chronic HTN (hypertension) chronic [facility] Work Phone: Evaluation note* Diagnosis Rash- Primary Rash and other nonspecific skin eruption Sinus congestion Other diseases of nasal cavity and sinuses Nasal congestion Other diseases of nasal cavity and sinuses [facility] Diagnosis Onset Date Resolution Status Abnormal cardiovascular stress test acute Cardiomyopathy chronic Dyslipidemia chronic Fibromyalgia chronic HTN (hypertension) chronic Cardiomyopathy chronic Dyslipidemia chronic Fibromyalgia chronic HTN (hypertension) chronic Cellulitis of axilla, left a [facility] Work Phone: Evaluation note* Diagnosis Onset Date Resolution Status Cardiomyopathy chronic Dyslipidemia chronic Fibromyalgia chronic HTN (hypertension) chronic Cellulitis of axilla, left a [facility] Work Phone: Evaluation note* Diagnosis Sinobronchitis- Primary Unspecified sinusitis (chronic) Acute cough [facility] Diagnosis Pain- Primary Generalized pain Pain Generalized pain documented in this encounter [facility] note* Diagnosis Pain Generalized [facility] Diagnosis Pain of finger of right hand Pain in limb [facility]* Diagnosis Arthritis of left glenohumeral joint- Primary Left shoulder pain, unspecified chronicity Left shoulder pain, unspecified chronicity documented [facility] this [facility]* Diagnosis Left shoulder pain, unspecified chronicity documented [facility] this [facility]* Diagnosis Urinary frequency- Primary [facility] this [facility] Diagnosis Arthritis of left glenohumeral joint Left shoulder pain, unspecified chronicity documented in this encounter [facility]* Diagnosis Arthritis of left glenohumeral joint- Primary [facility] Diagnosis Arthritis of left glenohumeral joint- Primary [facility] Diagnosis Arthritis of left glenohumeral joint- Primary [facility] this [facility]* Diagnosis Arthritis of left glenohumeral joint- Primary [facility] Diagnosis Arthritis of left glenohumeral joint- Primary [facility] this [facility]* Diagnosis Arthritis of left glenohumeral joint- Primary [facility] Diagnosis Arthritis of left glenohumeral joint- Primary [facility] Diagnosis Arthritis of left glenohumeral joint- Primary [facility]* Diagnosis Rhinosinusitis- Primary Unspecified sinusitis (chronic) documented in this encounter [facility]* Diagnosis Arthritis of left glenohumeral joint- Primary documented in this encounter [facility]* Diagnosis Pain of left calf- Primary Pain in limb documented in this encounter [facility] for referral (narrative)* Diagnostic Procedure Only (Urgent) - Closed Specialty Diagnoses / Procedures Referred By Contac t Referred To Contact XR IMAGING Diagnoses Pain Procedures XR KNEE GENERAL 4V AP BOTH/PA BOTH/LAT/MERC LEFT RADIOLOGIC EXAM KNEE COMPLETE 4/MORE VIEWS Loulou Lau APRN.CASH POSTING SPECIALIST [address] [place] [address] [place] [address] Referral ID Status Reason Start Date Expiration Date V isits Requested Visits Authorized [id number] Closed Auto-Generate d Referral 03/26/2024 04/25/2025 1 1 [facility] for referral (narrative)* Diagnostic Procedure Only (Urgent) - Closed Specialty Diagnoses / Procedures Referred By Contac t Referred To Contact XR IMAGING Diagnoses Pain Procedures XR KNEE GENERAL 4V AP BOTH/PA BOTH/LAT/MERC LEFT RADIOLOGIC EXAM KNEE COMPLETE 4/MORE VIEWS Loulou Lau APRN.CASH POSTING SPECIALIST [address] [place] [address] [place] [address] Referral ID Status Reason Start Date Expiration Date V isits Requested Visits Authorized [id number] Closed Auto-Generate d Referral 03/26/2024 04/25/2025 1 1 [facility] for referral (narrative)* Diagnostic Procedure Only (Urgent) - Closed Specialty Diagnoses / Procedures Referred By Contac t Referred To Contact XR IMAGING Diagnoses Pain of finger of right hand Procedures XR HAND GENERAL 3V PA/LAT/OBL RIGHT RADEX HAND MINIMUM 3 VIEWS Kelsey Hagan APRN.CASH POSTING SPECIALIST [address] [place] [address] [place] [address] Referral ID Status Reason Start Date Expiration Date V isits Requested Visits Authorized [id number] Closed Auto-Generate d Referral 09/19/2023 10/18/2024 1 1 [facility] for referral (narrative)* Diagnostic Procedure Only (Urgent) - Closed Specialty Diagnoses / Procedures Referred By Contac t Referred To Contact XR IMAGING Diagnoses Left shoulder pain, unspecified chronicity Procedures XR SHOULDER GENERAL 3V OR MORE AP/TRUE AP/OTHER LEFT RADEX SHOULDER COMPLETE MINIMUM 2 VIEWS Aj Clement MD [address] [place] [id number] [place] [address] Referral ID Status Reason Start Date Expiration Date V isits Requested Visits Authorized [id number] Closed Auto-Generate d Referral 07/02/2024 08/01/2025 1 1 [facility] for referral (narrative)No reason for referral information [facility] Reason for visit Narrative* Diagnostic Procedure Only (Urgent) - Closed Specialty Diagnoses / Procedures Referred By Contac t Referred To Contact XR IMAGING Diagnoses Pain Procedures XR KNEE GENERAL 4V AP BOTH/PA BOTH/LAT/MERC LEFT RADIOLOGIC EXAM KNEE COMPLETE 4/MORE VIEWS Loulou Lau APRN.CASH POSTING SPECIALIST [address] [place] [address] [place] [address] Referral ID Status Reason Start Date Expiration Date V isits Requested Visits Authorized [id number] Closed Auto-Generate d Referral 03/26/2024 04/25/2025 1 1 [facility] for visit Narrative* Diagnostic Procedure Only (Urgent) - Closed Specialty Diagnoses / Procedures Referred By Contac t Referred To Contact XR IMAGING Diagnoses Pain of finger of right hand Procedures XR HAND GENERAL 3V PA/LAT/OBL RIGHT RADEX HAND MINIMUM 3 VIEWS Kelsey Hagan APRN.CNP [address] [place] [address] [place] [address] Referral ID Status Reason Start Date Expiration Date V isits Requested Visits Authorized [id number] Closed Auto-Generate d Referral 09/19/2023 10/18/2024 1 1 [facility] for visit Narrative* Diagnostic Procedure Only (Urgent) - Closed Specialty Diagnoses / Procedures Referred By Contac t Referred To Contact XR IMAGING Diagnoses Left shoulder pain, unspecified chronicity Procedures XR SHOULDER GENERAL 3V OR MORE AP/TRUE AP/OTHER LEFT RADEX SHOULDER COMPLETE MINIMUM 2 VIEWS Aj Clement MD [address] [place] [address] [place] [id number] Referral ID Status Reason Start Date Expiration Date V isits Requested Visits Authorized [id number] Closed Auto-Generate d Referral 07/02/2024 08/01/2025 1 1 [facility] for visit Narrative* Diagnostic Procedure Only (Routine) - Outside PCP Specialty Diagnoses / Procedures Referred By Contac t Referred To Contact Radiology / RADIO [facility] Diagnoses DANNY SCREENING Screening for breast cancer [Z12.31] pt has in-hand order Delia Duke MD Procedures MAMMOGRAM SCREEN EXTERNAL Delia Duke MD [address] [place] [address] Radio Mammo [facility] [address] [place] [address] Referral ID Status Reason Start Date Expiration Date V isits Requested Visits Authorized [id number] Outside PCP 07/12/2024 09/10/2024 1 1 [facility] Summary Purpose Family History Relationship Condition Age at Onset Recorded Date/T sybil Not Specified Nephritis Unknown Malignant neoplasm Unknown Hypertension Unknown Relationship Condition Age at Onset Recorded Date/T sybil Not Specified Nephritis Unknown father Hypertension Unknown Cardiac disease Unknown Myocardial infarction Unknown mother Hypertension Unknown sister Cardiac disease Unknown Transient ischemic attack Unknown Diabetes mellitus Unknown grandfather Diabetes mellitus Unknown grandmother Diabetes mellitus Unknown grandmother Malignant neoplasm Unknown Advance Directives Advance Directive Response Recorded Date/ Time Advance Directives No December 09 6:22pm Living Will No August 26, 2 021 8:28pm Power of Pyroglazer No August 26, 2021 8:28pm Advance Directive Response Recorded Date/ Time Advance Directives on File No 2022 8:11am Advance Directives No December 09 5:22pm Living Will No August 19, 2 023 8:11am Power of Pyroglazer No August 19, 2023 8:11am Advance Directive Response Recorded Date/ Time Advance Directives No December 09 6:22pm Chief Complaint and Reason for Visit Chief Complaint SORE THROAT/CONGESTI ON/POST NASAL DRIP Urinary tract infection E ORDER Reason for Visit Acute bronchitis Dysuria Chief Complaint Urinary tract infect ion E ORDER GONZALEZ GONZALEZ Reason for Visit Dysuria Chief Complaint GONZALEZ GONZALEZ URINARY ISSUES/CHEST CONGESTION SOB / HFrEF (ZOEY) Reason for Visit Acute upper respirat ory infection Dysuria Abnormal cardiovascular stress test Dyslipidemia Fibromyalgia HTN (hypertension) Chief Complaint SOB / HFrEF (HERSHBE RGER) RT EYE DRAINAGE Cardiomyopathy, unspecified INT LABS 3 M FU RASH/LEFT UNDER ARM Stable Angina, HF <35% Stable angina, HF w/EF<35% Reason for Visit Abnormal cardiovascu lar stress test Cardiomyopathy Dyslipidemia Fibromyalgia HTN (hypertension) Cardiomyopathy Dyslipidemia Fibromyalgia HTN (hypertension) Cellulitis of axilla, left Chief Complaint Cardiomyopathy, unsp ecified INT LABS 3 M FU RASH/LEFT UNDER ARM Stable Angina, HF <35% Stable angina, HF w/EF<35% Stable angina, HF w/EF<35% CARDIOMYOPATHY UNSPECIFIED Reason for Visit Cardiomyopathy Dyslipidemia Fibromyalgia HTN (hypertension) Cellulitis of axilla, left Chief Complaint RT EYE DRAINAGE Cardiomyopathy, unspecified INT LABS 3 M FU RASH/LEFT UNDER ARM Stable Angina, HF <35% Stable angina, HF w/EF<35% Stable angina, HF w/EF<35% CARDIOMYOPATHY UNSPECIFIED Reason for Visit Cardiomyopathy Dyslipidemia Fibromyalgia HTN (hypertension) Cellulitis of axilla, left Chief Complaint Admit Date 6 M FU November 27, 2024 1:19pm DYSPNEA December 06, 2024 9:58 am Reason for Visit Admit Date Cardiomyopathy November 27, 2024 1:19pm Dyslipidemia November 27, 2024 1:19pm Fibromyalgia November 27, 2024 1:19pm GERD (gastroesophageal reflux disease) F eb2024 1:19pm HTN (hypertension) November 27, 2024 1:19pm Chief Complaint Admit Date 6 M FU November 27, 2024 1:19pm DYSPNEA December 06, 2024 9:58 am ABNORMAL ECHO January 12, 2025 9:2 7am Chief Complaint Admit Date 6 M FU November 27, 2024 1:19pm DYSPNEA December 06, 2024 9:58 am ABNORMAL ECHO January 12, 2025 9:2 7am BILAT LEG SWELLING February 20, 2025 1:34p m Chief Complaint Admit Date 6 M FU November 27, 2024 1:19pm DYSPNEA December 06, 2024 9:58 am ABNORMAL ECHO January 12, 2025 9:2 7am BILAT LEG SWELLING February 20, 2025 1:34p m Bilateral Blood Clots in Lower Extermiti es March 05, 2025 1:57pm Reason for Visit Admit Date Cardiomyopathy November 27, 2024 1:19pm Dyslipidemia November 27, 2024 1:19pm Fibromyalgia November 27, 2024 1:19pm GERD (gastroesophageal reflux disease) F [facility]2024 1:19pm HTN (hypertension) November 27, 2024 1:19pm Dyspnea on exertion March 05, 2025 1:57p m Cardiomyopathy March 05, 2025 1:57p m DVT, bilateral lower limbs March 05 1:57pm HTN (hypertension) March 05, 2025 1:57p m Reason for Referral Specialty Diagnoses / Procedures Referred By Sher jordan Referred To Contact Orthopedics Diagnoses Arthritis of left glenohumeral joint Left shoulder pain, unspecified chronicity Procedures CONSULT TO ORTHOPAEDICS OFFICE/OUTPATIENT [facility] 60 MINUTES Aj Clement MD [address] [place] [id number] Referral ID Status Reason Start Date Expiration Date Visits Requested Visits Authorized [id number] Authorized PCP Requested Referral 07/02/2024 07/02/2025 1 1 Specialty Diagnoses / Procedures Referred By Contac t Referred To Contact XR IMAGING Diagnoses Left shoulder pain, unspecified chronicity Procedures XR SHOULDER GENERAL 3V OR MORE AP/TRUE AP/OTHER LEFT RADEX SHOULDER COMPLETE MINIMUM 2 VIEWS Aj Clement MD [address] [place] [address] [place] [id number] Referral ID Status Reason Start Date Expiration Date V isits Requested Visits Authorized [id number] Closed Auto-Generate d Referral 07/02/2024 08/01/2025 1 1 Specialty Diagnoses / Procedures Referred By Contac t Referred To Contact [facility] Diagnoses Arthritis of left glenohumeral joint Procedures CONSULT TO PHYSICAL THERAPY PHYSICAL THERAPY EVALUATION HIGH COMPLEX 45 MINS Jerome Buenrostro V, DO [address] [place] [address] [facility] [place] [address] [place] [address] Referral ID Status Reason Start Date Expiration Date Visits Requested Visits Authorized [id number] Authorized PCP Requested Referral Auto-Generate d Referral 10/03/2023 10/02/[phone] Additional Source Comments INFORMATION SOURCE (unrecogn ized section and content) DATE CREATED AUTHOR 03/29/2018 [facility] ([place]) DATE CREATED AUTHOR AUTHOR'S ORGANIZ ATION 11/26/2019 [facility] DATE CREATED AUTHOR AUTHOR'S ORGANIZ ATION 04/11/2023 [facility] DATE CREATED AUTHOR AUTHOR'S ORGANIZ ATION 01/09/2025 [facility] DATE CREATED AUTHOR AUTHOR'S ORGANIZ ATION 03/09/[address] [facility] Source Comments (unrecognize d section and content) In the event this informatio n is protected by the Federal Confidentiality of Alcohol and Drug Abuse Patient Records regulations: The Federal rules restrict any use of the information to criminally investigate or prosecute any alcohol or drug abuse patient.[facility] the event this information is protected by the Federal Confidentiality of Alcohol and Drug Abuse Patient Records regulations: The Federal rules restrict any use of the information to criminally investigate or prosecute any alcohol or drug abuse patient.[facility]In the event this information is protected by the Federal Confidentiality of Alcohol and Drug Abuse Patient Records regulations: The Federal rules restrict any use of the information to criminally investigate or prosecute any alcohol or drug abuse patient.[facility]In the event this information is protected by the Federal Confidentiality of Alcohol and Drug Abuse Patient Records regulations: The Federal rules restrict any use of the information to criminally investigate or prosecute any alcohol or drug abuse patient.[facility]In the event this information is protected by the Federal Confidentiality of Alcohol and Drug Abuse Patient Records regulations: The Federal rules restrict any use of the information to criminally investigate or prosecute any alcohol or drug abuse patient.[facility] NorthIn the event this information is protected by the Federal Confidentiality of Alcohol and Drug Abuse Patient Records regulations: The Federal rules restrict any use of the information to criminally investigate or prosecute any alcohol or drug abuse patient.[facility] NorthIn the event this information is protected by the Federal Confidentiality of Alcohol and Drug Abuse Patient Records regulations: The Federal rules restrict any use of the information to criminally investigate or prosecute any alcohol or drug abuse patient.[facility] NorthIn the event this information is protected by the Federal Confidentiality of Alcohol and Drug Abuse Patient Records regulations: The Federal rules restrict any use of the information to criminally investigate or prosecute any alcohol or drug abuse patient.[facility] NorthIn the event this information is protected by the Federal Confidentiality of Alcohol and Drug Abuse Patient Records regulations: The Federal rules restrict any use of the information to criminally investigate or prosecute any alcohol or drug abuse patient.[facility] NorthIn the event this information is protected by the Federal Confidentiality of Alcohol and Drug Abuse Patient Records regulations: The Federal rules restrict any use of the information to criminally investigate or prosecute any alcohol or drug abuse patient.[facility] NorthIn the event this information is protected by the Federal Confidentiality of Alcohol and Drug Abuse Patient Records regulations: The Federal rules restrict any use of the information to criminally investigate or prosecute any alcohol or drug abuse patient.[facility] NorthIn the event this information is protected by the Federal Confidentiality of Alcohol and Drug Abuse Patient Records regulations: The Federal rules restrict any use of the information to criminally investigate or prosecute any alcohol or drug abuse patient.[facility] NorthIn the event this information is protected by the Federal Confidentiality of Alcohol and Drug Abuse Patient Records regulations: The Federal rules restrict any use of the information to criminally investigate or prosecute any alcohol or drug abuse patient.[facility] NorthIn the event this information is protected by the Federal Confidentiality of Alcohol and Drug Abuse Patient Records regulations: The Federal rules restrict any use of the information to criminally investigate or prosecute any alcohol or drug abuse patient.[facility] NorthIn the event this information is protected by the Federal Confidentiality of Alcohol and Drug Abuse Patient Records regulations: The Federal rules restrict any use of the information to criminally investigate or prosecute any alcohol or drug abuse patient.[facility] NorthIn the event this information is protected by the Federal Confidentiality of Alcohol and Drug Abuse Patient Records regulations: The Federal rules restrict any use of the information to criminally investigate or prosecute any alcohol or drug abuse patient.[facility] NorthIn the event this information is protected by the Federal Confidentiality of Alcohol and Drug Abuse Patient Records regulations: The Federal rules restrict any use of the information to criminally investigate or prosecute any alcohol or drug abuse patient.[facility] NorthIn the event this information is protected by the Federal Confidentiality of Alcohol and Drug Abuse Patient Records regulations: The Federal rules restrict any use of the information to criminally investigate or prosecute any alcohol or drug abuse patient.[facility] NorthIn the event this information is protected by the Federal Confidentiality of Alcohol and Drug Abuse Patient Records regulations: The Federal rules restrict any use of the information to criminally investigate or prosecute any alcohol or drug abuse patient.[facility] NorthIn the event this information is protected by the Federal Confidentiality of Alcohol and Drug Abuse Patient Records regulations: The Federal rules restrict any use of the information to criminally investigate or prosecute any alcohol or drug abuse patient.[facility] NorthIn the event this information is protected by the Federal Confidentiality of Alcohol and Drug Abuse Patient Records regulations: The Federal rules restrict any use of the information to criminally investigate or prosecute any alcohol or drug abuse patient.[facility] NorthIn the event this information is protected by the Federal Confidentiality of Alcohol and Drug Abuse Patient Records regulations: The Federal rules restrict any use of the information to criminally investigate or prosecute any alcohol or drug abuse patient.[facility] NorthIn the event this information is protected by the Federal Confidentiality of Alcohol and Drug Abuse Patient Records regulations: The Federal rules restrict any use of the information to criminally investigate or prosecute any alcohol or drug abuse patient.[facility] NorthIn the event this information is protected by the Federal Confidentiality of Alcohol and Drug Abuse Patient Records regulations: The Federal rules restrict any use of the information to criminally investigate or prosecute any alcohol or drug abuse patient.[facility] NorthIn the event this information is protected by the Federal Confidentiality of Alcohol and Drug Abuse Patient Records regulations: The Federal rules restrict any use of the information to criminally investigate or prosecute any alcohol or drug abuse patient.[facility] NorthIn the event this information is protected by the Federal Confidentiality of Alcohol and Drug Abuse Patient Records regulations: The Federal rules restrict any use of the information to criminally investigate or prosecute any alcohol or drug abuse patient.[facility] NorthIn the event this information is protected by the Federal Confidentiality of Alcohol and Drug Abuse Patient Records regulations: The Federal rules restrict any use of the information to criminally investigate or prosecute any alcohol or drug abuse patient.[facility] NorthIn the event this information is protected by the Federal Confidentiality of Alcohol and Drug Abuse Patient Records regulations: The Federal rules restrict any use of the information to criminally investigate or prosecute any alcohol or drug abuse patient.[facility] NorthIn the event this information is protected by the Federal Confidentiality of Alcohol and Drug Abuse Patient Records regulations: The Federal rules restrict any use of the information to criminally investigate or prosecute any alcohol or drug abuse patient.[facility] NorthIn the event this information is protected by the Federal Confidentiality of Alcohol and Drug Abuse Patient Records regulations: The Federal rules restrict any use of the information to criminally investigate or prosecute any alcohol or drug abuse patient.[facility] NorthIn the event this information is protected by the Federal Confidentiality of Alcohol and Drug Abuse Patient Records regulations: The Federal rules restrict any use of the information to criminally investigate or prosecute any alcohol or drug abuse patient.[facility] NorthIn the event this information is protected by the Federal Confidentiality of Alcohol and Drug Abuse Patient Records regulations: The Federal rules restrict any use of the information to criminally investigate or prosecute any alcohol or drug abuse patient.[facility] NorthIn the event this information is protected by the Federal Confidentiality of Alcohol and Drug Abuse Patient Records regulations: The Federal rules restrict any use of the information to criminally investigate or prosecute any alcohol or drug abuse patient.[facility] NorthIn the event this information is protected by the Federal Confidentiality of Alcohol and Drug Abuse Patient Records regulations: The Federal rules restrict any use of the information to criminally investigate or prosecute any alcohol or drug abuse patient.[facility] NorthIn the event this information is protected by the Federal Confidentiality of Alcohol and Drug Abuse Patient Records regulations: The Federal rules restrict any use of the information to criminally investigate or prosecute any alcohol or drug abuse patient.[facility] NorthIn the event this information is protected by the Federal Confidentiality of Alcohol and Drug Abuse Patient Records regulations: The Federal rules restrict any use of the information to criminally investigate or prosecute any alcohol or drug abuse patient.[facility] NorthIn the event this information is protected by the Federal Confidentiality of Alcohol and Drug Abuse Patient Records regulations: The Federal rules restrict any use of the information to criminally investigate or prosecute any alcohol or drug abuse patient.[facility] NorthIn the event this information is protected by the Federal Confidentiality of Alcohol and Drug Abuse Patient Records regulations: The Federal rules restrict any use of the information to criminally investigate or prosecute any alcohol or drug abuse patient.[facility] NorthIn the event this information is protected by the Federal Confidentiality of Alcohol and Drug Abuse Patient Records regulations: The Federal rules restrict any use of the information to criminally investigate or prosecute any alcohol or drug abuse patient.[facility] NorthIn the event this information is protected by the Federal Confidentiality of Alcohol and Drug Abuse Patient Records regulations: The Federal rules restrict any use of the information to criminally investigate or prosecute any alcohol or drug abuse patient.[facility] NorthIn the event this information is protected by the Federal Confidentiality of Alcohol and Drug Abuse Patient Records regulations: The Federal rules restrict any use of the information to criminally investigate or prosecute any alcohol or drug abuse patient.[facility] NorthIn the event this information is protected by the Federal Confidentiality of Alcohol and Drug Abuse Patient Records regulations: The Federal rules restrict any use of the information to criminally investigate or prosecute any alcohol or drug abuse patient.[facility] NorthIn the event this information is protected by the Federal Confidentiality of Alcohol and Drug Abuse Patient Records regulations: The Federal rules restrict any use of the information to criminally investigate or prosecute any alcohol or drug abuse patient.[facility] NorthIn the event this information is protected by the Federal Confidentiality of Alcohol and Drug Abuse Patient Records regulations: The Federal rules restrict any use of the information to criminally investigate or prosecute any alcohol or drug abuse patient.[facility] the event this information is protected by the Federal Confidentiality of Alcohol and Drug Abuse Patient Records regulations: The Federal rules restrict any use of the information to criminally investigate or prosecute any alcohol or drug abuse patient.[facility] NorthIn the event this information is protected by the Federal Confidentiality of Alcohol and Drug Abuse Patient Records regulations: The Federal rules restrict any use of the information to criminally investigate or prosecute any alcohol or drug abuse patient.[facility] NorthIn the event this information is protected by the Federal Confidentiality of Alcohol and Drug Abuse Patient Records regulations: The Federal rules restrict any use of the information to criminally investigate or prosecute any alcohol or drug abuse patient.[facility] NorthIn the event this information is protected by the Federal Confidentiality of Alcohol and Drug Abuse Patient Records regulations: The Federal rules restrict any use of the information to criminally investigate or prosecute any alcohol or drug abuse patient.[facility] NorthIn the event this information is protected by the Federal Confidentiality of Alcohol and Drug Abuse Patient Records regulations: The Federal rules restrict any use of the information to criminally investigate or prosecute any alcohol or drug abuse patient.[facility] NorthIn the event this information is protected by the Federal Confidentiality of Alcohol and Drug Abuse Patient Records regulations: The Federal rules restrict any use of the information to criminally investigate or prosecute any alcohol or drug abuse patient.[facility] NorthIn the event this information is protected by the Federal Confidentiality of Alcohol and Drug Abuse Patient Records regulations: The Federal rules restrict any use of the information to criminally investigate or prosecute any alcohol or drug abuse patient.[facility] NorthIn the event this information is protected by the Federal Confidentiality of Alcohol and Drug Abuse Patient Records regulations: The Federal rules restrict any use of the information to criminally investigate or prosecute any alcohol or drug abuse patient.[facility] Reason for Visit (unrecogniz ed section and content) Reason Comments PT Discharge PT Progress Note Specialty Diagnoses / Procedures Referred By Sher jordan Referred To Contact [facility] Diagnoses Arthritis of left glenohumeral joint Procedures CONSULT TO PHYSICAL THERAPY PHYSICAL THERAPY EVALUATION HIGH COMPLEX 45 [address], [address] [place] [address] [facility] [place] [address] [place] [address] Referral ID Status Reason Start Date Expiration Date Visits Requested Visits Authorized [id number] Authorized PCP Requested Referral Auto-Generate d Referral 10/03/2023 10/02/2024 99 99 Reason Comments Physical Therapy Reason Onset Date Comments Refill Request 04/09/2022 Reason Comments Refill Request Reason Onset Date Comments Refill Request 06/09/2022 Reason Onset Date Comments Refill Request 07/08/2022 Reason Comments Medication Problem Reason Onset Date Comments Refill Request 08/11/2022 Reason Onset Date Comments Refill Request 09/08/2022 Reason Comments Fibromyalgia Reason Onset Date Comments Refill Request 11/08/2022 Reason Onset Date Comments Refill Request 12/08/2022 Refill Request 12/13/2022 Reason Onset Date Comments Refill Request 01/11/2023 Reason Comments Pain Reason Comments Appointment Reason Comments Patient Question Reason Comments Cough Dry non productive, stuffy nose x 2 weeks Rash Under left armpit x 2 weeks Reason Comments Nasal Congestion chest congestion, dr epps, cough x 1 week Reason Comments Knee Pain left x 1 day, pain, swelling and bruising Reason Comments Pain Left shoulder pain x 5 weeks Reason Comments Urinary Frequency Frequency and burnin g x 3 days Reason Comments Results Reason Comments left shoulder pain Specialty Diagnoses / Procedures Referred By Sher t Referred To Contact Orthopedics Diagnoses Arthritis of left glenohumeral joint Left shoulder pain, unspecified chronicity Procedures CONSULT TO ORTHOPAEDICS OFFICE/OUTPATIENT [facility] 60 MINUTES Aj Clement MD [address] [place] [address] Referral ID Status Reason Start Date Expiration Date V isits Requested Visits Authorized [id number] Closed PCP Requested Referral 07/02/2024 07/02/2025 1 1 Reason Comments PT Eval Reason Onset Date Comments Refill Request 08/14/2024 Reason Onset Date Comments Refill Request 09/11/2024 Reason Comments 11 weeks 2 days post visit left shoulder pain Reason Comments Sinus Problem Sinus pressure, coug h, chest congestion, JC ear pain x 1 week Reason Comments 6 weeks 4 days post visit arthritis left glenohumeral joint Reason Comments Pain X 3 weeks pain in Le ft back of leg, has been using same less Fall Fell this am, wedged between stoop and concrete, fell on R side, hit back of head, has a headache, no other isses present, L calf pain increased and having burning in leg x this am Care Teams (unrecognized sec tion and content) Team Status: Active Member Role Status Dates Dr. Gianluca Nunez MD Family Provider Active Dr. Gianluca Nunez MD Primary Care Provider Active Team Status: Inactive Member Role Status Dates Dr. Gianluca Nunez MD Primary Care Provider, Refer ring Provider Active Kishan HORNE, PA Attending Provider Active Team Status: Inactive Member Role Status Dates Dr. Gianluca Nunez MD Primary Care Provider, Refer ring Provider Active Blaine HORNE, PA Attending Provider Active Team Status: Inactive Member Role Status Dates Dr. Gianluca Nunez MD Primary Care Provider Active Blaine HORNE, PA Attending Provider Active Team Status: Active Member Role Status Dates Dr. Gianluca Nunez MD Primary Care Provider Active Diego Greer PEDIATRIC PATHOLOGIST, PEDIATRIC PATHOLOGIST-C Referring Provider, Other Provider Active Dr. Kina Cooper MD Attending Provider Active Team Status: Inactive Member Role Status Dates Dr. Gianluca Nunez MD Primary Care Provider Active Diego Greer PEDIATRIC PATHOLOGIST, PEDIATRIC PATHOLOGIST-C Attending Provider, Refer ring Provider Active Team Status: Inactive Member Role Status Dates Dr. Gianluca Nunez MD Primary Care Provider, Refer ring Provider Active Dr. Kina Cooper MD Attending Provider Active Team Status: Inactive Member Role Status Dates Dr. Gianluca Nunez MD Primary Care Provider Active Dr. Kina Cooper MD Attending Provider, Referring Pr ovider Active Team Status: Active Member Role Status Dates Dr. Gianluca Nunez MD Family Provider Active Diego Greer PEDIATRIC PATHOLOGIST, PEDIATRIC PATHOLOGIST-C Primary Care Provider Act snehal Team Status: Active Member Role Status Dates Dr. Gianluca Nunez MD Primary Care Provider Active Dr. Kina Cooper MD Attending Provider, Referring Pr ovider Active Team Status: Inactive Member Role Status Dates Diego Greer PEDIATRIC PATHOLOGIST, PEDIATRIC PATHOLOGIST-C Primary Care Provider, Re ferring Provider Active Dr. Kina Cooper MD Attending Provider Active Team Status: Inactive Member Role Status Dates Diego Greer PEDIATRIC PATHOLOGIST, PEDIATRIC PATHOLOGIST-C Primary Care Provider, Re ferring Provider Active Blaine HORNE, PA Attending Provider Active Team Status: Inactive Member Role Status Dates Diego Greer PEDIATRIC PATHOLOGIST, PEDIATRIC PATHOLOGIST-C Primary Care Provider Act snehal Dr. Kina Cooper MD Attending Provider, Referring Pr ovider Active Team Status: Active Member Role Status Dates Diego Greer PEDIATRIC PATHOLOGIST, PEDIATRIC PATHOLOGIST-C Primary Care Provider Act snehal Dr. Kina Cooper MD Attending Provider, Referring Pr ovider Active Team Status: Active Member Role Status Dates Diego Greer PEDIATRIC PATHOLOGIST, PEDIATRIC PATHOLOGIST-C Primary Care Provider Act snehal Dr. Eric Pete MD Attending Provider Active Sales Professional Bilingual Relationship Specialty Start Date End Date Grant Greer CNP [address] [place] [phone] PCP - General Family Medicine 07/09/24 Sales Professional Bilingual Relationship Specialty Start Date End Date Grant Greer CNP [address] [place] [phone] PCP - General Family Medicine 07/09/24 Sales Professional Bilingual Relationship Specialty Start Date End Date Grant Greer CNP [address] [place] [address] PCP - General Family Medicine 07/09/24 Sales Professional Bilingual Relationship Specialty Start Date End Date Grant Greer CNP [address] [place] [address] PCP - General Family Medicine 07/09/24 Sales Professional Bilingual Relationship Specialty Start Date End Date Grant Greer CNP [address] [place] [address] PCP - General Family Medicine 07/09/24 Sales Professional Bilingual Relationship Specialty Start Date End Date Grant Greer CNP [address] [place] [address] PCP - General Family Medicine 07/09/24 Sales Professional Bilingual Relationship Specialty Start Date End Date Grant Greer CNP [address] [place] [address] PCP - General Family Medicine 07/09/24 Sales Professional Bilingual Relationship Specialty Start Date End Date Grant Gerer CNP [address] [place] [address] PCP - General Family Medicine 07/09/24 Sales Professional Bilingual Relationship Specialty Start Date End Date Grant Greer CNP [address] [place] [address] PCP - General Family Medicine 07/09/24 Sales Professional Bilingual Relationship Specialty Start Date End Date Grant Greer CNP [address] [place] [phone] PCP - General Family Medicine 07/09/24 Sales Professional Bilingual Relationship Specialty Start Date End Date Grant Greer CNP [address] [place] [phone] PCP - General Family Medicine 07/09/24 Sales Professional Bilingual Relationship Specialty Start Date End Date Grant Greer CNP [address] [place] [address] PCP - General Family Medicine 07/09/24 Sales Professional Bilingual Relationship Specialty Start Date End Date Grant Greer CNP [address] [place] [phone] PCP - General Family Medicine 07/09/24 Team Status: Active Member Role Status Dates Diego Greer NP, PEDIATRIC PATHOLOGIST-C Primary Care Provider Act snehal Team Status: Inactive Member Role Status Dates Diego Greer NP, PEDIATRIC PATHOLOGIST-C Primary Care Provider Act snehal Start: November 27, 2024 End: November 27, 2024 Diego Greer PEDIATRIC PATHOLOGIST, PEDIATRIC PATHOLOGIST-C Referring Provider Active Start: November 27, 2024 End: November 27, 2024 Dr. Kina Cooper MD Attending Provider Active Start: November 27, 2024 End: November 27, 2024 Team Status: Inactive Member Role Status Dates Diego Greer PEDIATRIC PATHOLOGIST, PEDIATRIC PATHOLOGIST-C Primary Care Provider Act snehal Start: December 06, 2024 End: December 06, 2024 Dr. Kina Cooper MD Attending Provider Active Start: December 06, 2024 End: December 06, 2024 Dr. Kina Cooper MD Referring Provider Active Start: December 06, 2024 End: December 06, 2024 Team Status: Active Member Role Status Dates Diego Greer PEDIATRIC PATHOLOGIST, PEDIATRIC PATHOLOGIST-C Primary Care Provider Act snehal Start: December 06, 2024 Dr. Kina Cooper MD Attending Provider Active Start: December 06, 2024 Sales Professional Bilingual Relationship Specialty Start Date End Date Grant Greer CNP [address] [facility] [address] [place] [phone] PCP - [facility] Family Medicine 07/09/24 Team Status: Inactive Member Role Status Dates Diego Greer PEDIATRIC PATHOLOGIST, PEDIATRIC PATHOLOGIST-C Primary Care Provider Act snehal Start: January 12, 2025 End: January 12, 2025 Ravi Montelongo PEDIATRIC PATHOLOGIST, PEDIATRIC PATHOLOGIST-C Attending Provider Active S tart: January 12, 2025 End: January 12, 2025 Ravi Montelongo NP, PEDIATRIC PATHOLOGIST-C Referring Provider Active S tart: January 12, 2025 End: January 12, 2025 Sales Professional Bilingual Relationship Specialty Start Date End Date Grant Greer CNP [address] [facility] [address] [place] [phone] PCP - General Acute Hospital Medicine 07/09/24 Team Status: Inactive Member Role Status Dates Diego Greer PEDIATRIC PATHOLOGIST, PEDIATRIC PATHOLOGIST-C Primary Care Provider Act snehal Start: February 20, 2025 End: February 20, 2025 Dara Pierre PA, PA Attending Provider Active Start: February 20, 2025 End: February 20, 2025 Dara HORNE, PA Referring Provider Active Start: February 20, 2025 End: February 20, 2025 Team Status: Active Member Role Status Dates Diego Greer NP, PEDIATRIC PATHOLOGIST-C Primary Care Provider Act snehal Start: February 20, 2025 Dr. Crzu Alaniz MD Attending Provider Active S tart: February 20, 2025 Team Status: Inactive Member Role Status Dates Diego Greer PEDIATRIC PATHOLOGIST, PEDIATRIC PATHOLOGIST-C Primary Care Provider Act snehal Start: March 05, 2025 End: March 05, 2025 Diego Greer PEDIATRIC PATHOLOGIST, PEDIATRIC PATHOLOGIST-C Referring Provider Active Start: March 05, 2025 End: March 05, 2025 Dara HORNE, PA Attending Provider Active Start: March 05, 2025 End: March 05, 2025 Goals (unrecognized section and content) Goals may be documented in a n alternate sectionGoals may be documented in an alternate sectionGoals may be documented in an alternate sectionGoals may be documented in an alternate sectionGoals may be documented in an alternate sectionGoals may be documented in an alternate sectionGoals may be documented in an alternate sectionGoals may be documented in an alternate sectionGoals may be documented in an alternate sectionGoals may be documented in an alternate sectionGoals may be documented in an alternate section FOR RECORDS PERTAINING TO PATIENTS WHO ARE OR HAVE BEEN ENROLLED IN A CHEMICAL DEPENDENCY/SUBSTANCEABUSE PROGRAM, SOME INFORMATION MAY BE OMITTED. This clinical summary was aggregated from multiple sources. Caution should be exercised in using it in the provision of clinical care. This summary normalizes information from multiple sources, and as a consequence, information in this document may materially change the coding, format and clinical context of patient data. In addition, data may be omitted in some cases. CLINICAL DECISIONS SHOULD BE BASED ON THE PRIMARY CLINICAL RECORDS. [facility] [employer] [facility]. provides no warranty or guarantee of the accuracy or completeness of information in this document.
== END | disposition home or self-care (01) ==
LOC: CT 07:55
PROVIDERS: PCP Nurse Practitioner Family; Referring Provider Physician Assistant Medical; Visit Provider Physician Assistant Medical
DX: R06.02 Shortness of breath (principal); R06.09 Other forms of dyspnea
CPT/HCPCS: 71275; Q9967

== ENCOUNTER → 2025-04-10 | Outpatient (CLI) | payer BC, MEDICARE, SELFPAY ==
[2023-08-19 08:57] VITALS: BMI 25.4
--- NOTE | 2025-04-10 13:55 | ECHOD_ITS ---
Reason For Study Reason For Study: DYSPNEA Procedure This was a 2D Doppler, Color Flow transthoracic echocardiogram. Myocardial strain analysis was performed in this exam to aid in the assessment of cardiac function. Exam performed in department. Left Ventricle Normal size and thickness. The LV ejection fraction is 60 %. No evidence for diastolic dysfunction. Right Ventricle Normal right ventricle. Atria The left and right atria are normal. Mitral Valve Trivial mitral valve insufficiency. Tricuspid Valve Normal tricuspid valve. Unable to estimate RV systolic pressure due to inadequate jet, pulmonary artery pressure probably normal. Aortic Valve Trisinus/trileaflet aortic valve. Pulmonic Valve The pulmonic valve is not well visualized. Great Vessels Normal sized aortic root. Pericardium/Pleural Trivial pericardial effusion. Very prominent epicardial fat pad. Recommend cardiac MRI or CT for further evaluation. MMode/2D Measurements & Calculations LVIDd: 4.4 cm IVSd: 1.1 cm LVOT diam: 2.1 cm LVIDs: 2.6 cm LVPWd: 0.99 cm LVOT area: 3.5 cm2 RVDd: 3.0 cm FS: 40.8 % asc Aorta Diam: 3.3 cm LAV(MOD-bp): 17.7 ml LVAd ap4: 16.3 cm2 LAV(MOD-bp) Indexed: 9.5 ml/m2 LVLd ap4: 6.3 cm LAV(MOD-sp2): 18.5 ml EDV(MOD-sp4): 35.3 ml LAV(MOD-sp4): 16.0 ml EDV(sp4-el): 35.9 ml LVAs ap4: 10.5 cm2 LVLs ap4: 5.7 cm ESV(MOD-sp4): 17.1 ml ESV(sp4-el): 16.2 ml EF(MOD-sp4): 51.5 % EF(sp4-el): 54.8 % LVAd ap2: 15.7 cm2 SV(MOD-sp4): 18.2 ml SV(MOD-sp2): 17.5 ml LVLd ap2: 6.7 cm SI(MOD-sp4): 9.8 ml/m2 SI(MOD-sp2): 9.4 ml/m2 EDV(MOD-sp2): 32.3 ml EDV(sp2-el): 31.5 ml LVAs ap2: 10.1 cm2 LVLs ap2: 6.1 cm ESV(MOD-sp2): 14.8 ml ESV(sp2-el): 14.1 ml EF(MOD-sp2): 54.2 % SV(sp4-el): 19.6 ml Ao sinus diam: 3.[address] Junction: 2.7 cm LA dimension(2D): 3.0 cm LA A4 area: 9.6 cm2 RA A4 area: 6.6 cm2 TAPSE: 1.7 cm Time Measurements MV dec time: 0.17 sec Doppler Measurements & Calculations MV E max polo: 43.4 cm/sec Lat Peak E' Polo: 11.7 cm/sec Med Peak E' Polo: 7.7 cm/sec MV A max polo: 63.8 cm/sec E/E' lat: 3.7 E/E' med: 5.6 MV E/A: 0.68 MV dec slope: 248.4 cm/sec2 Ao V2 max: 131.0 cm/sec LV V1 max: 101.5 cm/sec Ao max P.9 mmHg LV V1 max P.1 mmHg Ao V2 mean: 94.5 cm/sec LV V1 mean P.3 mmHg Ao mean P.0 mmHg LV V1 mean: 71.3 cm/sec Ao V2 VTI: 22.4 cm LV V1 VTI: 15.9 cm AV (velocity ratio): 0.71 BERTA(I,D): 2.5 cm2 BERTA(V,D): 2.7 cm2 SV(LVOT): 54.9 ml PA V2 max: 88.2 cm/sec ECHO/Echo Complete Interpretation Summary The LV ejection fraction is 60 %. Global longitudinal strain is -13.6% which is abnormal. No evidence for diastolic dysfunction. Very prominent epicardial fat pad. Recommend cardiac MRI or CT for further eval uation. Ordering Physician: Dara Pierre Referring Physician: Dara Pierre Performed By: Agnieszka Ruano RDCS
== END | disposition home or self-care (01) ==
LOC: CVS 13:54
PROVIDERS: PCP Family Medicine; Referring Provider Physician Assistant Medical; Visit Provider Physician Assistant Medical
DX: R06.09 Other forms of dyspnea (principal)
CPT/HCPCS: 93306

== ENCOUNTER → 2025-06-26 | Outpatient (CLI) | payer BC, MEDICARE, SELFPAY ==
[2023-08-19 08:57] VITALS: BMI 25.4
--- NOTE | 2025-06-26 08:49 | VDLE_ITS ---
Reason For Study Reason For Study: Swelling RIGHT LEFT GSV is normal. GSV is normal. CFV is compressible, spontaneous, phasic, competent CFV is compressible, spontaneous, phasic, competent, and demonstrates normal augmentation. and demonstrates normal augmentation. FV is compressible, spontaneous, phasic, competent FV is compressible, spontaneous, phasic, competent and demonstrates normal augmentation. and demonstrates normal augmentation. POP V is compressible, spontaneous, phasic, competent POP V is compressible, spontaneous, phasic, competent and demonstrates normal augmentation. and demonstrates normal augmentation. T/P Trunk is compressible. T/P Trunk is compressible. PTV is compressible. PTV is compressible. RT PerV is compressible. LT PerV is compressible. Procedure This is a venous duplex using B-mode, color flow and spectral Doppler. Exam performed in department. VL/Venous Duplex US - Jc Extrem Interpretation Summary Deep veins of the bilateral lower extremities are patent and compressible segme ntally. There is no evidence of bilateral lower extremity deep vein thrombosis. The bilateral great saphenous veins appea r patent and compressible segmentally. Ordering Physician: Breanna Cooper Referring Physician: Darius Duke MD Performed By: Drea Cage RVT
== END | disposition home or self-care (01) ==
LOC: CVS 08:46
PROVIDERS: PCP Family Medicine; Referring Provider Nurse Practitioner Gerontology; Visit Provider Nurse Practitioner Gerontology
DX: I82.403 Acute embolism and thrombosis of unspecified deep veins of lower extremity, bilateral (principal); M79.89 Other specified soft tissue disorders
CPT/HCPCS: 93970